=== PATIENT | male | born 1970 | race Caucasian/White ===

== ENCOUNTER 2019-12-17 12:19 | Emergency (ER) | payer OTHER, SELFPAY ==
[2019-12-17 12:21] VITALS: BP 149/111; PULSE 91; RESP 19; TEMP 36.8; O2SAT 96; BMI 39.5
[2019-12-17 13:06] LABS: Basophils # 0.1 10^3/uL (0.0-0.1); Basophils % 0.5 %; Eosinophils # 0.3 10^3/uL (0.0-0.8); Eosinophils % 2.9 %; Hematocrit 42.7 % (42.0-52.0); Hemoglobin 13.8 g/dL (11.7-16.6); Lymphocytes # 1.6 10^3/uL (0.8-4.8); Lymphocytes % 15.9 %; Mean Corpuscular HGB Conc 32.3 g/dL (30.0-36.0); Mean Corpuscular Hemoglobin 29.3 pg (28.0-34.0); Mean Corpuscular Volume 90.7 fL (80-94); Mean Platelet Volume 9.6 fL (7.4-10.4); Monocytes # 0.7 10^3/uL (0.2-0.9); Monocytes % 7.3 %; Neutrophils # 7.2 10^3/uL (1.8-7.7); Neutrophils % 73.1 %; Nucleated Red Blood Cells % 0 %; Platelet Count 225 10^3/cmm (130-400); Red Blood Count 4.71 10^6/uL (4.1-5.3); Red Cell Distribution Width 12.3 % (12.1-15.1); White Blood Count 9.8 10^3/uL (4.0-10.0)
[2019-12-17 13:26] LABS: Alanine Aminotransferase 20 U/L (0-41); Albumin Level 4.3 g/dL (3.5-5.2); Alkaline Phosphatase 101 IU/L (40-130); Aspartate Amino Transferase 20 U/L (0-40); Blood Urea Nitrogen 11 mg/dL (6-20); Calcium 10.1 mg/Dl (8.6-10.0); Carbon Dioxide 22 mmol/L (22-29); Chloride 102 mmol/L (98-107); Globulin 3.9 g/dL (1.3-4.6); Glomerular Filtration Rate 79.4 mL/min (90-130); Glucose 108 mg/dL (74-109); Lipase 22 U/L (13-60); Sodium 139 mmol/L (136-145); Total Bilirubin 0.3 mg/dL (0.15-1.2); Total Protein 8.2 g/dL (6.6-8.7)
--- NOTE | 2019-12-17 13:49 | ED_ITS ---
Entered by Genna Bar, acting as scribe for Mireille Rae MD, [facility] [place] Dec 17, 2019 12:19 HPI - Abdominal Pain General: Chief Complaint: Abdominal Pain Stated Complaint: watery stool Time Seen by Provider: 12/17/19 13:42 Source: patient Mode of arrival: ambulatory Limitations: no limitations History of Present Illness: HPI narrative: 49 yo Male presents to ED with complaint of abdominal pain and diarrhea. Pt states that for a little over a week he has had very watery stools. Pt states that over the past 4-5 days he is having cramping that has been increasing. Pt states that the pain is in his upper abdomen and into the right side of his abdomen. Pt states that if he eats, the pain gets worse. Pt denies any nausea and vomiting. Pt states that he has been a little light headed. MD elicited complaint: abdominal pain Pertinent past history: none Onset (ago): week(s) (1) Pain Consistency: constant Location: RUQ Pain scale (0-10): 6 Quality: cramping Migration to: no migration Associated Symptoms: Reports diarrhea; Denies chills, dysuria, fever(s), nausea and vomiting Review of Systems General: Reports: 10 or more systems reviewed and unremarkable except in HPI and below Const: Denies: fever or chills Eyes: Denies: change in vision, blurry vision or blind spots ENMT: Denies: throat pain, enlarged tonsils, painful swallowing or hoarseness Card: Denies: chest pain, palpitations, irregular heart rhythm or swelling of feet/ankles Resp: Denies: shortness of breath, productive cough or non-productive cough GI: Reports: abdominal pain and diarrhea; Denies: nausea or vomiting : Denies: flank pain, difficulty urinating or painful urination Musc: Denies: neck pain, back pain, extremity pain or extremity swelling Skin/Breast: Denies: rash, itching or redness Neuro: Denies: headache, numbness in extremities or weakness in extremities Endo: Denies: excessive urination, excessive thirst or tired all the time PFSH ED PFSH: Statuses (acute, chronic, etc) shown below reflect problem list status as previously entered and may not be historically accurate Social History Smoking and tobacco status: never smoked Physical Exam Const: COMMON NORMALS: no apparent distress, average body habitus, oriented x3, no limitations, healthy appearing, alert and well nourished HENMT: COMMON NORMALS: normocephalic, head/scalp atraumatic, hearing grossly normal bilaterally, external ears normal, EAC's normal, TM's normal bilaterally, external nose normal, nasal mucous membranes and turbinates normal, moist oral mucous membranes, oropharynx normal, dentition normal and gingiva normal HEAD & SCALP: normocephalic and atraumatic NOSE: external nose normal and nasal mucous membranes and turbinates normal EXTERNAL EAR: Yes external ears normal EXTERNAL AUDITORY CANAL: EAC's normal TYMPANIC MEMBRANE: TM's normal bilaterally Eye: COMMON NORMALS: PERRL, EOMs intact bilaterally, conjunctivae normal, no scleral icterus, no papilledema, normal visual underwood by confrontation and fundi normal bilaterally CONJUNCTIVA: Yes conjunctivae normal PUPIL: Yes PERRL DIRECT OPHTHALMOSCOPY: Yes no papilledema and Yes fundi normal bilaterally Neck/C-Spine: COMMON NORMALS: full ROM, supple, no meningeal signs, no JVD and no carotid bruits Chest: COMMONS NORMALS: inspection of chest normal and palpation of chest normal Resp: COMMON NORMALS: normal respiratory effort, no retractions, no use of accessory muscles, clear to auscultation bilaterally and percussion normal AUSCULTATION: clear to auscultation bilaterally PERCUSSION: percussion normal Cardio: COMMON NORMALS: no JVD, regular rate, regular rhythm, S1 normal heart sound, S2 normal heart sound, no gallops, no clicks, no murmurs, no rub and peripheral pulses 2+ throughout RATE: regular rate RHYTHM: regular rhythm HEART SOUNDS: S1 normal and S2 normal PERIPHERAL PULSES: pulses 2+ throughout GI: COMMON NORMALS: normal to inspection, nondistended, normoactive bowel sounds, soft to palpation, no hepatosplenomegaly, no masses and no bruits PALPATION: Yes soft, Yes tender Details: RLQ and RUQ, No guarding, No rigid and Yes no hepatosplenomegaly : COMMON NORMALS: Yes no CVA tenderness BLADDER/KIDNEY EXAM: Yes no CVA tenderness Back/Pelvis: COMMON NORMALS: no CVA tenderness Extremity: COMMON NORMALS: normal to inspection, full ROM, normal capillary refill, no joint enlargement, no clubbing, cyanosis or edema, no calf tenderness and no pedal edema Neuro: COMMON NORMALS: oriented x3 SENSORIUM/ORIENTATION: Yes alert MENINGEAL SIGNS: Yes no meningeal signs Skin: COMMON NORMALS: no rashes or lesions noted, no wounds, skin turgor normal, no jaundice, no petechiae and no mottling GENERAL SKIN EXAM: no rashes or lesions noted and turgor normal Course ED course: Discussed his lab and imaging findings with him. Labs normal, lipase normal, liver enzymes normal, white cell count normal. CT scan unremarkable other than features of enteritis. I will treat him as a case of viral enteritis and will manage him conservatively. He is advised to drink lots of fluids, get some [id number] antidiarrheal and to follow-up with his primary care provider. He voiced understanding and he is in agreement with the plan. Vital Signs: Vital signs: Vital Signs Temperature 98.2 F 12/17/19 12:21 Pulse Rate 91 12/17/19 12:21 Respiratory Rate 18 12/17/19 14:46 Blood Pressure 149/111 12/17/19 12:21 Pulse Oximetry 98 12/17/19 14:46 MDM - Abdominal Pain MDM Narrative: Medical decision making narrative: Patient with clinical features of viral enteritis. Labs unremarkable with normal white cell count, normal lipase, normal liver enzymes. CT scan does not show any acute findings other than enteritis and lymph node enlargement. He is discharged home on conservative measures. Lab Data: Labs: Lab Results 12/17/19 12/17/19 12/17/19 Range/Units 12:58 12:58 14:41 WBC 9.8 (4.0-10.0) 10^3/ uL RBC 4.71 (4.1-5.3) 10^6/u L Hgb 13.8 (11.7-16.6) g/dL Hct 42.7 (42.0-52.0) % MCV 90.7 (80-94) fL MCH 29.3 (28.0-34.0) pg MCHC 32.3 (30.0-36.0) g/dL RDW 12.3 (12.1-15.1) % Plt Count 225 (130-400) 10^3/c mm MPV 9.6 (7.4-10.4) fL Neut % (Auto) 73.1 % Lymph % (Auto) 15.9 % [place] % (Auto) 7.3 % Eos % (Auto) 2.9 % Baso % (Auto) 0.5 % Neut # (Auto) 7.2 (1.8-7.7) 10^3/u L Lymph # (Auto) 1.6 (0.8-4.8) 10^3/u L [place] # (Auto) 0.7 (0.2-0.9) 10^3/u L Eos # (Auto) 0.3 (0.0-0.8) 10^3/u L Baso # (Auto) 0.1 (0.0-0.1) 10^3/u L Nucleated RBC % (a uto) 0 % Nucleated RBCs # 0.0 /100WBC Sodium 139 (136-145) mmol/L Potassium 4.0 (3.5-5.1) mmol/L Chloride 102 (98-107) mmol/L Carbon Dioxide 22 (22-29) mmol/L Anion Gap 19.0 (5-19) BUN 11 (6-20) mg/dL Creatinine 1.0 (0.7-1.2) mg/dL GFR Calculation 79.4 L (90-130) mL/min Glucose 108 (74-109) mg/dL Calcium 10.1 H (8.6-10.0) mg/Dl Total Bilirubin 0.3 (0.15-1.2) mg/dL AST 20 (0-40) U/L ALT 20 (0-41) U/L Alkaline Phosphata se 101 (40-130) IU/L Total Protein 8.2 (6.6-8.7) g/dL Albumin 4.3 (3.5-5.2) g/dL Globulin 3.9 (1.3-4.6) g/dL Lipase 22 (13-60) U/L Urine Color Yellow (Yellow) Urine Appearance Clear (CLEAR) Urine pH 5 (5-7) Ur Specific Gravit y 1.015 (1.005-1.030) Urine Protein Neg (Negative) Urine Glucose (UA) Norm (Normal) Urine Ketones Negative (Negative) Urine Occult Blood Neg (Negative) Urine Nitrate Negative (Negative) Urine Bilirubin Neg (NEGATIVE) Urine Urobilinogen Norm (Negative) mg/dL Ur Leukocyte Soumya ase Negative (Negative) Imaging Data ^: CT Abd/Pel: Radiologist's impression: [facility] [address] [place] [address] CT Scan Report Signed Patient: Kamala Carroll #: [id number] : 1970Acct#:[id number] Age/Sex: 49 / MADM Date: 12/17/19 Loc: ERRoom/Bed: Attending Dr: Ordering Provider/Ordering MD: Mireille Rae MD, [facility] [place] Date of Service: 12/17/19 Procedure(s): CT abdomen pelvis w con* [id number] Accession Number(s): [id number] Report Number: [id number] WS: [id number] CT ABDOMEN AND PELVIS WITH CONTRAST HISTORY: abdominal pain, diarrhea for 3 days. TECHNIQUE: Imaging performed of the abdomen and pelvis with IV contrast. Single phase imaging of the abdomen. Coronal and sagittal reformats are submitted. All CT scans at [facility] use at least one of these dose optimization techniques: automated exposure control; mA and/or kV adjustment per patient size (includes targeted exams where dose is matched to clinical indication); or iterative reconstruction. IV CONTRAST: Omnipaque 300; 95 mL IV. Oral contrast: No DLP: 2527.13 mGy.cm COMPARISON: Chest CTA 05/21/2018 Lower thorax: Stable 3 mm nodule in the RIGHT lung base. Heart is normal size. No hiatal hernia. Liver/biliary system: Normal size with no intrahepatic dilatation. Gallbladder: Normal. No gallstones or wall thickening. No pericholecystic fluid. Pancreas: Normal. Spleen: Normal. Adrenal glands: Normal. Right kidney: Cortical hypodensity upper pole. No obstruction or solid mass. Left kidney: Normal. Aorta: Normal. Lymphadenopathy: Small rounded lymph nodes with mild enhancement in the RIGHT lower quadrant. The largest measures 1.0 cm. There is a adjacent stranding and induration within the soft tissues involving the distal small bowel and the cecum. Free fluid: None. GI tract: Mild inflammation and stranding involving the cecum and distal small bowel. The adjacent appendix is normal. No GI tract obstruction. No significant diverticular disease. Abdominal wall: Unremarkable abdominal wall. No hernia. Pelvis: Normally distended urinary bladder. No free fluid in the pelvis. Inguinal canals are patent bilaterally containing fat. Bones: T10, T11 and T12 mild anterior wedging and degenerative disc disease. No acute fractures. CT/CT abdomen pelvis w con* [id number] IMPRESSION: 1. RIGHT lower quadrant small but numerous lymph nodes and adjacent cecal and distal small bowel wall inflammation. Findings are most consistent with a mild inflammatory process such as colitis/enteritis. Mesenteric adenitis within the differential. 2. Normal appendix. 3. No free fluid or abscess. Dictated By:Noni Lovell DO Signed By:Noni Lovell DOSigned Date/Time:12/17/19 1450 DD/ 1442 Discharge Plan Discharge Patient Disposition: Home, Self-Care Clinical Impression: Enteritis Condition: Stable Prescriptions: New dicyclomine 10 mg capsule 10 mg PO TID Qty: 30 RF: 0 Discharge Orders: Discharge Order (Routine); Ordered 12/17/19 Ordered By: Mireille Rae Activity Restrictions/Additional Instructions: Return for any new or worsening symptoms. Drink lots of fluids to keep well-hydrated. Take the medication as prescribed as needed for pain and diarrhea. Get some [id number] antidiarrheal medication and use it as needed for diarrhea. Follow-up with your primary care provider within 3 days. Coding Level of Care Code ED Pneumatic Tester Mechanic for Chg Fwd Exam Problem Focused The documentation recorded by the Dipika vogel Carmen, accurately reflects the service I personally performed and the decisions made by Kyra hines Adegoke I, MD, [facility] Dec 17, 2019 12:19
--- NOTE | 2019-12-17 14:08 | CT_ITS ---
WS: [id number] CT ABDOMEN AND PELVIS WITH CONTRAST HISTORY: abdominal pain, diarrhea for 3 days. TECHNIQUE: Imaging performed of the abdomen and pelvis with IV contrast. Single phase imaging of the abdomen. Coronal and sagittal reformats are submitted. All CT scans at [facility] use at least one of these dose optimization techniques: automated exposure control; mA and/or kV adjustment per patient size (includes targeted exams where dose is matched to clinical indication); or iterativ e reconstruction. IV CONTRAST: Omnipaque 300; 95 mL IV. Oral contrast: No DLP: 2527.13 mGy.cm COMPARISON: Chest CTA 05/21/2018 Lower thorax: Stable 3 mm nodule in the RIGHT lung base. Heart is normal size. No hiatal hernia. Liver/biliary system: Normal size with no intrahepatic dilatation. Gallbladder: Normal. No gallstones or wall thickening. No pericholecystic fluid. Pancreas: Normal. Spleen: Normal. Adrenal glands: Normal. Right kidney: Cortical hypodensity upper pole. No obstruction or solid mass. Left kidney: Normal. Aorta: Normal. Lymphadenopathy: Small rounded lymph nodes with mild enhancement in the RIGHT lower quadrant. The lar gest measures 1.0 cm. There is a adjacent stranding and induration within the soft tissues involving the distal small bowel and the cecum. Free fluid: None. GI tract: Mild inflammation and stranding involving the cecum and distal small bowel. The adjacent ap pendix is normal. No GI tract obstruction. No significant diverticular disease. Abdominal wall: Unremarkable abdominal wall. No hernia. Pelvis: Normally distended urinary bladder. No free fluid in the pelvis. Inguinal canals are patent b ilaterally containing fat. Bones: T10, T11 and T12 mild anterior wedging and degenerative disc disease. No acute fractures. CT/CT abdomen pelvis w con* [id number] IMPRESSION: 1. RIGHT lower quadrant small but numerous lymph nodes and adjacent cecal and distal small bowel wall inflammation. Findings are most consistent with a mild inflammatory process such as colitis/enteritis. Mesenteric adenitis within the differential. 2. Normal appendix. 3. No free fluid or abscess.
[2019-12-17] MEDS: iohexol 300 mg/mL 100 mL Btl IV (14:27)
[2019-12-17 14:46] VITALS: RESP 18; O2SAT 98
[2019-12-17] MEDS: morphine 4 mg/mL SDV 1 mL 6 MG IVP (14:46)
[2019-12-17 14:54] LABS: Add Urine Microscopic? NO
[2019-12-17 15:05] LABS: Bilirubin Urine Neg (NEGATIVE); Blood Urine Neg (Negative); Glucose Urine UA Norm (Normal); Ketones Urine Negative (Negative); Leukocyte Esterase Urine Negative (Negative); Nitrate Urine Negative (Negative); Protein Urine Neg (Negative); Specific Gravity, Urine 1.015 (1.005-1.030); Urine Appearance Clear (CLEAR); Urine Color Yellow (Yellow); Urobilinogen Urine Norm (Negative); pH Urine 5 (5-7)
[2019-12-17 15:54] VITALS: BP 135/92; PULSE 72; RESP 18; O2SAT 96
== END 2019-12-17 15:55 | disposition home or self-care (01) ==
PROVIDERS: Physician Assistant; Emergency Provider Family Medicine
DX: K52.9 Noninfective gastroenteritis and colitis, unspecified (principal)
CPT/HCPCS: 36415; 74177; 80053; 81003; 83690; 85025; 96374; 99282; J2270; Q9967

== ENCOUNTER 2020-12-01 12:53 | Emergency (ER) | payer OTHER, SELFPAY ==
[2020-12-01] VITALS (7 sets, daily range): BP systolic 154–194; BP diastolic 98–116; PULSE 61–100; RESP 15–17; TEMP 36.6; O2SAT 97–100; BMI 39.5
--- NOTE | 2020-12-01 13:24 | CT_ITS ---
WS: [id number] CT HEAD NONCONTRAST HISTORY: elevated BP, dizziness TECHNIQUE: Contiguous axial imaging performed through the brain in 2.5 mm imaging. Bone and soft tiss ue windows. Sagittal and coronal reformats reviewed. All CT scans at [facility] use at ast one of these dose optimization techniques: automated exposure control; mA and/or kV adjustment pe r patient size (includes targeted exams where dose is matched to clinical indication); or iterative r econstruction. DLP: 898.2 mGy.cm COMPARISON: None available. No acute intracranial hemorrhage, midline shift or mass effect. No atrophy or prior infarcts or herniation. Ventricles: Normal size with no hydrocephalus. Paranasal sinuses: As visualized are clear. Mastoid air cells: Well pneumatized. Calvarium and scalp: Skull is intact with no soft tissue edema or swelling. CT/CT head wo con* [id number] IMPRESSION: Negative head CT.
--- NOTE | 2020-12-01 13:24 | ECG_ITS ---
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
--- NOTE | 2020-12-01 13:25 | W.ED.GENADLT ---
HPI - General Adult General: Chief complaint: General Medical Stated complaint: DIZZY, HYPERTENSION Time Seen by Provider: 12/01/20 12:55 History of Present Illness: HPI narrative: 50-year-old male presents emergency room complaining of lightheadedness dizziness blood pressure has been elevating the last several hours. He has no recent changes in antihypertensives but he had run out of his sertraline for a week and then restarted at 100 mg a day. He denies chest. He has had some headache little bit of visual disturbance no difficulty speaking or swallowing no difficulty with gait or using his hands. Patient reports earlier had very mild chest pains no shortness of breath chest pain is resolved he still has a little bit of shortness of breath. Onset (ago): hour(s) Location: head Radiation: non-radiation Severity: mild Quality: aching Pain Consistency: now resolved Relieving factors: none Exacerbating factors: none Associated symptoms: Reports chest pain, dyspnea and short of breath; Deny confusion, cough, diaphoresis, decreased appetite, fevers/chills, headache(s), malaise, nausea, rash, palpitations, seizures, syncope, vomiting or weakness Treatments prior to arrival: none Review of Systems Const: Denies: diaphoresis ENMT: Denies: throat pain, ear or mastoid pain, nasal discharge or nasal congestion Card: Reports: chest pain; Denies: palpitations or syncope Resp: Reports: dyspnea GI: Denies: nausea or vomiting : Denies: flank pain, dysuria, urinary frequency or urinary urgency Skin/Breast: Denies: rash or pruritus Neuro: Denies: headache(s) or confusion PFS ED PFSH: Social History Smoking and tobacco status: never smoked Physical Exam Const: COMMON NORMALS: no acute distress GENERAL APPEARANCE: cooperative and comfortable ORIENTATION/CONSCIOUSNESS: Yes awake, Yes oriented to person, Yes oriented to place and Yes oriented to time HENMT: COMMON NORMALS: normocephalic, atraumatic and hearing grossly normal bilaterally HEAD & SCALP: normocephalic and atraumatic Eye: COMMON NORMALS: Equal, round and reactive pupils present, EOMs intact bilaterally, conjunctivae normal and no scleral icterus CONJUNCTIVA: Yes conjunctivae normal PUPIL: Yes Equal, round and reactive pupils present Neck/C-Spine: COMMON NORMALS: full ROM, no lymphadenopathy, supple and no JVD Lymph: LYMPHATIC: no lymphadenopathy noted and no lymphedema noted Resp: COMMON NORMALS: normal respiratory effort, No retractions, No use of accessory muscles and clear to auscultation bilaterally AUSCULTATION: clear to auscultation bilaterally Cardio: COMMON NORMALS: no JVD, regular rate, regular rhythm and No murmurs present (Cardio) RATE: regular rate RHYTHM: regular rhythm GI: COMMON NORMALS: Soft to palpation and No hepatosplenomegaly present AUSCULTATION: Yes normoactive bowel sounds PALPATION: Yes Soft to palpation, No Tenderness to palpation present (GI), No Guarding due to palpation present (GI) and Yes No hepatosplenomegaly present Extremity: COMMON NORMALS: normal to inspection, capillary refill normal, no clubbing, cyanosis or edema, no calf tenderness and no pedal edema Neuro: SENSORIUM/ORIENTATION: Yes oriented to person, Yes oriented to place and Yes oriented to time Skin: COMMON NORMALS: no rashes or lesions noted GENERAL SKIN EXAM: no rashes or lesions noted Course Vital Signs: Vital signs: Vital Signs Temperature 97.8 F 12/01/20 12:54 Pulse Rate 100 12/01/20 16:01 Respiratory Rate 16 12/01/20 16:01 Blood Pressure 167/116 12/01/20 16:01 Pulse Oximetry 97 12/01/20 16:01 MDM - General Adult MDM Narrative: Medical decision making narrative: Troponin negative blood pressure is improved we will discharge him home on amlodipine 5 mg daily have him start taking aspirin 81 mg daily and will have him follow-up with an outpatient stress test and follow-up with his primary care within the week for follow-up on blood pressure. Patient's discharge orders are written I was called away to attend to another patient by the time I had completed that and gotten back to this patient's room he had already been discharged by the nurse I called him on his cell phone and reviewed what we had found in his discharge instructions answered all questions he had encouraged him to follow-up with his doc sometime in the week to recheck his blood pressure and advised him that case management would call to set up the stress test also that he should take the amlodipine in addition to his other blood pressure medications and take an aspirin daily Lab Data: Labs: Lab Results 12/01/20 12/01/20 12/01/20 Range/Units 13:10 13:10 13:10 WBC 6.8 (4.0-10.0) 10^3/ uL RBC 4.71 (4.1-5.3) 10^6/u L Hgb 14.1 (11.7-16.6) g/dL Hct 44.8 (42.0-52.0) % MCV 95.1 H (80-94) fL MCH 29.9 (28.0-34.0) pg MCHC 31.5 (30.0-36.0) g/dL RDW 12.5 (12.1-15.1) % Plt Count 169 (130-400) 10^3/c mm MPV 10.7 H (7.4-10.4) fL Neut % (Auto) 53.1 % Lymph % (Auto) 34.5 % [place] % (Auto) 8.7 % Eos % (Auto) 2.9 % Baso % (Auto) 0.7 % Neut # (Auto) 3.60 (1.8-7.7) 10^3/u L Lymph # (Auto) 2.3 (0.8-4.8) 10^3/u L [place] # (Auto) 0.6 (0.2-0.9) 10^3/u L Eos # (Auto) 0.2 (0.0-0.8) 10^3/u L Baso # (Auto) 0.1 (0.0-0.1) 10^3/u L Nucleated RBC % (a uto) 0 % Nucleated RBCs # 0.0 /100WBC Sodium 138 (136-145) mmol/L Potassium 4.2 (3.5-5.1) mmol/L Chloride 101 (98-107) mmol/L Carbon Dioxide 27 (22-29) mmol/L Anion Gap 14.2 (5-19) BUN 11 (6-20) mg/dL Creatinine 1.0 (0.7-1.2) mg/dL GFR Calculation 79.1 L (90-130) mL/min Glucose 96 (65-115) mg/dL Calculated Osmolal ity 285 (285-295) mOsm/k g Calcium 9.3 (8.5-10.5) mg/dL Total Bilirubin 0.3 (0.15-1.2) mg/dL AST 14 (0-40) U/L ALT 15 (0-41) U/L Alkaline Phosphata se 86 (40-130) IU/L Troponin T Baselin e 7 (0-15) ng/L Troponin T 120 [place] (0-15) ng/L Delta Troponin T (0-10) ABS# Total Protein 7.1 (6.6-8.7) g/dL Albumin 4.7 (3.5-5.2) g/dL Globulin 2.4 (1.3-4.6) g/dL 12/01/20 Range/Units 15:02 WBC (4.0-10.0) 10^3/ uL RBC (4.1-5.3) 10^6/u L Hgb (11.7-16.6) g/dL Hct (42.0-52.0) % MCV (80-94) fL MCH (28.0-34.0) pg MCHC (30.0-36.0) g/dL RDW (12.1-15.1) % Plt Count (130-400) 10^3/c mm MPV (7.4-10.4) fL Neut % (Auto) % Lymph % (Auto) % [place] % (Auto) % Eos % (Auto) % Baso % (Auto) % Neut # (Auto) (1.8-7.7) 10^3/u L Lymph # (Auto) (0.8-4.8) 10^3/u L [place] # (Auto) (0.2-0.9) 10^3/u L Eos # (Auto) (0.0-0.8) 10^3/u L Baso # (Auto) (0.0-0.1) 10^3/u L Nucleated RBC % (a uto) % Nucleated RBCs # /100WBC Sodium (136-145) mmol/L Potassium (3.5-5.1) mmol/L Chloride (98-107) mmol/L Carbon Dioxide (22-29) mmol/L Anion Gap (5-19) BUN (6-20) mg/dL Creatinine (0.7-1.2) mg/dL GFR Calculation (90-130) mL/min Glucose (65-115) mg/dL Calculated Osmolal ity (285-295) mOsm/k g Calcium (8.5-10.5) mg/dL Total Bilirubin (0.15-1.2) mg/dL AST (0-40) U/L ALT (0-41) U/L Alkaline Phosphata se (40-130) IU/L Troponin T Baselin e (0-15) ng/L Troponin T 120 Min [place] 7.37 (0-15) ng/L Delta Troponin T 0.37 (0-10) ABS# Total Protein (6.6-8.7) g/dL Albumin (3.5-5.2) g/dL Globulin (1.3-4.6) g/dL Discharge Plan Discharge Patient Disposition: Home Clinical Impression: Benign essential HTN, Atypical chest pain Condition: Stable Prescriptions: New amlodipine 5 mg tablet 5 mg PO DAILY Qty: 20 RF: 0 aspirin 81 mg tablet,delayed release (DR/EC) 81 mg PO DAILY Qty: 30 RF: 0 No Action dicyclomine 10 mg capsule 10 mg PO TID Qty: 30 RF: 0 lisinopril 20 mg Tablet 10 mg PO DAILY@0530 RF: 0 sertraline 100 mg Tablet 200 mg PO BEDTIME@1900 RF: 0 mirtazapine 30 mg Tablet 30 mg PO DAILY@0530 RF: 0 rivaroxaban 20 mg Tablet 20 mg PO DAILY@0530 RF: 0 Vitamin C 1 tab PO DAILY@0530 RF: 0 Vitamin D3 1 tab PO DAILY@0530 RF: 0 atorvastatin See Rx Instructions .ROUTE .COMPLEX RF: 0 metformin 100 mg 50 mg PO BID@0530,1900 RF: 0 vitamin E 1 tab PO DAILY@0530 RF: 0 Discharge Orders: Discharge ED (Routine); Ordered 12/01/20 Ordered By: Darrell Good Discharge Diet: Usual diet Discharge Activity: Increase activity as tolerated Activity Restrictions/Additional Instructions: Case management will call with a referral for a cardiac stress test. Follow-up with your doctor for check on blood pressure within the week. Return if you have further problems. Coding Level of Care Code ED Civil Preparedness Coordinator for Leslie Fwd Exam Comprehensive NIH stroke score NIHSS Level Of Consciousness - 1a: 0 Level Of Consciousness Questions - 1b: Both Correct Level Of Consciousness Commands - 1c: Both Correct Best Gaze - 2: Normal Visual [place] - 3: No Visual Loss Facial Palsy - 4: Normal Motor Arm Right - 5: No Drift Motor Arm Left - 5: No Drift Motor Leg Right - 6: No Drift Motor Leg Left - 6: No Drift Limb Ataxia - 7: Absent Sensory - 8: Normal Best Language - 9: No Aphasia Dysarthia - 10: Normal Extinction And Inattention - 11: 0 Score Total Score: 0
[2020-12-01 13:45] LABS: Basophils # 0.1 10^3/uL (0.0-0.1); Basophils % 0.7 %; Eosinophils # 0.2 10^3/uL (0.0-0.8); Eosinophils % 2.9 %; Hematocrit 44.8 % (42.0-52.0); Hemoglobin 14.1 g/dL (11.7-16.6); Lymphocytes # 2.3 10^3/uL (0.8-4.8); Lymphocytes % 34.5 %; Mean Corpuscular HGB Conc 31.5 g/dL (30.0-36.0); Mean Corpuscular Hemoglobin 29.9 pg (28.0-34.0); Mean Corpuscular Volume 95.1 fL (80-94); Mean Platelet Volume 10.7 fL (7.4-10.4); Monocytes # 0.6 10^3/uL (0.2-0.9); Monocytes % 8.7 %; Neutrophils % 53.1 %; Nucleated Red Blood Cells % 0 %; Platelet Count 169 10^3/cmm (130-400); Red Blood Count 4.71 10^6/uL (4.1-5.3); Red Cell Distribution Width 12.5 % (12.1-15.1); White Blood Count 6.8 10^3/uL (4.0-10.0)
[2020-12-01 14:22] LABS: Alanine Aminotransferase 15 U/L (0-41); Albumin Level 4.7 g/dL (3.5-5.2); Alkaline Phosphatase 86 IU/L (40-130); Anion Gap 14.2 (5-19); Aspartate Amino Transferase 14 U/L (0-40); Blood Urea Nitrogen 11 mg/dL (6-20); Calcium 9.3 mg/dL (8.5-10.5); Carbon Dioxide 27 mmol/L (22-29); Chloride 101 mmol/L (98-107); Globulin 2.4 g/dL (1.3-4.6); Glomerular Filtration Rate 79.1 mL/min (90-130); Glucose 96 mg/dL (65-115); Osmolality Calculated 285 mOsm/kg (285-295); Potassium 4.2 mmol/L (3.5-5.1); Sodium 138 mmol/L (136-145); Total Bilirubin 0.3 mg/dL (0.15-1.2); Total Protein 7.1 g/dL (6.6-8.7)
[2020-12-01 14:24] LABS: Troponin(5th) Baseline 7 ng/L (0-15)
[2020-12-01] MEDS: amlodipine 5 mg Tablet PO (14:56)
--- NOTE | 2020-12-01 15:24 | ECG_ITS ---
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
[2020-12-01 15:42] LABS: Troponin 5 2HR 7.37 ng/L (0-15); Troponin 5 2HR Delta 0.37 ABS# (0-10)
== END 2020-12-01 16:02 | disposition home or self-care (01) ==
PROVIDERS: Emergency Provider Family Medicine
DX: I10 Essential (primary) hypertension (principal); R07.89 Other chest pain
CPT/HCPCS: 12345; 36415; 70450; 80053; 84484; 85025; 93005; 99283

== ENCOUNTER → 2021-01-26 11:40 | Outpatient (BNVA) | payer OTHER, SELFPAY | PROVIDERS: PCP Family Medicine; Visit Provider Specialist | DX: R20.0 Anesthesia of skin (principal); R20.2 Paresthesia of skin; G56.21 Lesion of ulnar nerve, right upper limb | CPT/HCPCS: 95908 ==

== ENCOUNTER 2021-02-25 07:16 | Outpatient (CLI) | payer OTHER, SELFPAY ==
[2021-02-25 07:48] VITALS: BMI 39.5
--- NOTE | 2021-02-25 07:50 | ECG_ITS ---
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 Interpretive Statements NAME OF STUDY: LEXISCAN SESTAMIBI STRESS TEST INDICATION: [Chest Pain] Procedure: At the baseline, the blood pressure was 130/78 mmHg, heart rate of 55 bpm. Electrocardiogram showed normal sinus rhythm, with normal ST-T waves. The Lexiscan was infused over a duration of 20 seconds. A total of 0.4 mg of Lexiscan was infused. The stress phase was continued for a total of 5 minutes. Heart rate at the end of stress phase was 77 bpm with a blood pressure of 146/67mmHg. The EKG revealed sinus rhythm with no significant ST-T wave changes. Sestamibi was injected 20 seconds after the Lexiscan infusion. Blood pressure at the end of recovery phase was 137/80mmHg with a heart rate of 74 bpm. Conclusion: 1. Normal EKG response to Lexiscan infusion. 2. No Lexiscan induced chest pain or cardiac arrhythmia. 3. Normal blood pressure and heart rate response. 4. Sestamibi/sestamibi perfusion scan pending; see separate report. Electronically Signed On 02-28-2021 17:30:07 CDT by Osman Wilson M.D. [id number]
--- NOTE | 2021-02-25 07:50 | NMCV_ITS ---
NM gerald perf SPECT r/s* [id number] Philip Carroll Age: 50 Gender: M : 1970 Exam Date: 02/25/2021 08:56 Ordering Phys: Osman Wilson M.D ([email or web address]) Technologist: DENIA Donahue Exam Location: [facility] Indications: Chest pain STRESS TEST [facility] IMAGE PROTOCOL Rest/Stress 1 Lexiscan Day Radiopharmaceutical Dose (mCi) Administration Site Administered by Rest: Tc-99m 10.7 IV DENIA Donahue Sestamibi Stress:Tc-99m 33.0 IV DENIA Donahue Sestamibi Rest: 25-Feb-2021 60 Discovery 630 Stress: 25-Feb-2021 45 Discovery 630 0.4mg Lexiscan. Images obtained in supine and prone position. SPECT RESULTS Technical Quality: Good Raw Data Analysis: Normal Image Corrections: No attenuation or motion correction applied Summed Stress Score: 3 Summed Rest Score: 1 Summed Difference Score: 2 PERFUSION FINDINGS There is a small in size, reversible perfusion defect in the apical, apical inferior and inferior wall. This likely represents ischemia FUNCTIONAL RESULTS (calculated via Gated SPECT) Stress Image LV EF (%): 52 Stress EDV (mL):125 TID: 1.07 Stress ESV (mL):60 FUNCTIONAL FINDINGS: LV systolic function is normal IMPRESSIONS 1. There is small in size, reversible perfusion defect in the apical,apical inferior and inferior wall. This represents ischemia 2. LV systolic function is normal Osman Wilson MD (Electronically Signed) Final Date: 27 February 2021 20:08 S
--- NOTE | 2021-02-25 09:39 | SUR.PREOP ---
Patient reports no chest pain or discomfort prior to the start of the procedure.
[2021-02-25] MEDS: regadenoson 0.4 Mg/5 ml Syringe IVP (09:41)
[2021-02-25 09:57] VITALS: BP 137/81; PULSE 73
== END 2021-02-25 07:17 | disposition home or self-care (01) ==
LOC: CDL 07:17
PROVIDERS: PCP Family Medicine; Visit Provider Internal Medicine
DX: R07.9 Chest pain, unspecified (principal)
CPT/HCPCS: 78452; 93017; A9500; J2785

== ENCOUNTER → 2021-03-08 09:31 | Outpatient (BNVA) | payer OTHER, SELFPAY | PROVIDERS: PCP Family Medicine; Visit Provider Internal Medicine | DX: R94.39 Abnormal result of other cardiovascular function study (principal); Z20.822 Contact with and (suspected) exposure to COVID-19 | CPT/HCPCS: 80048; 85025; 85610; 87635 ==

== ENCOUNTER → 2021-03-31 11:23 | Outpatient (BNVA) | payer OTHER, SELFPAY | PROVIDERS: PCP Family Medicine; Visit Provider Internal Medicine | DX: Z01.818 Encounter for other preprocedural examination (principal); Z20.822 Contact with and (suspected) exposure to COVID-19 | CPT/HCPCS: 80048; 85025; 85610; 87635 ==

== ENCOUNTER 2021-04-02 11:50 | Day surgery (SDC) | payer OTHER, SELFPAY ==
[2021-04-02] VITALS (16 sets, daily range): BP systolic 126–142; BP diastolic 68–100; PULSE 57–90; RESP 11–24; TEMP 36.5; O2SAT 94–97; BMI 45.0
--- NOTE | 2021-04-02 12:30 | XACV_ITS ---
Exam Room: [facility] Ht: 180 cm Wt: 147 kg BSA: 2.78 m2 Gender: Male : 1970 Any Known Allergies: No known allergies Exam Priority: Routine Procedure(s): Procedure Description: Diagnostic procedure Procedure Description: Left ventriculography Procedure Description: Coronary Angiography Procedure Description: Left heart cath Diagnostic Cath Status: Elective Diagnostic Findings * No disease noted in the Left Main, Left Anterior Descending, Right, or Circumflex coronary arteries. PDA has diffuse mild to moderate disease.. * Coronary angiography shows right dominance. PCI Status: Elective Conclusions 1. No disease noted in the Left Main, Left Anterior Descending, Right, or Circumflex coronary arteries. PDA has diffuse mild to moderate disease.. 2. Normal left ventricular systolic function. Ejection fraction of 55%. Recommendations * Aggressive risk factor control. * Outpatient cardiology follow up. Diagnostic RX Recommendation: medical therapy and/or counseling Anticoagulation: Heparin Ventriculography Ejection Fraction: 55.0 % Pressures Phase:Rest AO : 147 / 24 ( 54 ) @ 2:13:00 PM LV : 129 / 5 / 20 @ 2:12:00 PM 232 / 58 / 136 @ 2:13:00 PM Clinical Evaluation EBL: 5mL-10mL Procedural Details Procedure Consent Obtained. Pre-Procedure Time Out. Identified patient by full name and date of as verbalized by the patient/guarantor. Does the consent match the physician's order: Yes. Accurate & Complete Informed Consent: Yes. Inpatient/Outpatient History & Physical on Chart: Yes. If H&P is completed, is and addenduem needed: No; If yes, is the addendum complete: N/A. Visualize and Verify Site with Patient/Guarantor: N/A. Relevant Radiology Images available: Yes. Pre-op teaching completed and patient verbalized understanding. The risks, benefits, and alternatives of sedation and/or procedure were discussed by physician. The patient agrees to continue. Procedure started. Correct patient, site and procedure confirmed by cath team. Current diagnosis: Chest Pain. PERRLA. Strong, equal hand storm sash maker bilaterally. Lungs clear x 5 lobes. IV Site on Arrival: 20 gauge in the left anticubital. IV Fluids: 0.9% NaCl at KVO. 0 mL infused prior to geoscience laboratory technician. Pre Procedural Pulses: bilateral dorsalis pedis was 1+. Pre Procedural Pulses: bilateral posterior tibial was 1+. Pre Procedural Pulses: right radial was 3+. Pre Procedural Pulses: left radial was 1+. Oxygen started at 2liters/min via nasal canula. bilateral groins was prepped with chloroprep then draped in the usual sterile fashion. right radial was prepped with chloroprep then draped in the usual sterile fashion. Baseline sample Acquired. HR: 54 BPM. Physician notified. Physician arrived. Equipment: 6F - Radial. ACIST Manifold Kit Model BT 2000. Cardiac Cath Pack. Heparinized Saline (2 units/mL), 1000 mL bag. Physician scrubbed in. Immediate Pre-Procedure Time Out. Correct Patient: Yes; Correct Procedure: Yes; Correct Site: Yes; Correct Patient Position: Yes; Correct Supplies: Yes; Dried Flammable Prep: Yes; Blood Products Available: No;. Lidocaine 1% infiltrated to the right radial. Arterial access obtained. A 5 jordanian TIG catheter in over wire. Multiple views taken of left coronary artery. Catheter redirected to the RCA. Multiple views taken of right coronary artery. Catheter out. A 5 jordanian Angled Pig catheter in over wire. EDP Sample taken: LV 129/5,20; HR: 66 BPM; SpO2: 98%. LV gram performed in LEDESMA @ 10 mL/second for a total of 20 mL. EDP Sample taken: LV 232/58,136; HR: 64 BPM; SpO2: 98%. Pullback taken: LV Off; AO Off; Mean: , Peak to Peak: , SEP: ; HR: 64 BPM; SpO2: 98%. Catheter out. TR band placed. Hemostasis obtained. A TR Band was successful obtaining hemostatsis at the Right Radial artery insertion site. Post Procedure: Pulses reassessed and unchanged. PERRLA. Strong, equal hand storm sash maker bilaterally. No VTE prophylaxis required. Contrast type used: Omnipaque 300 mgI/mL, 500 mL bottle. [facility] Clinical Fraility Score: 3: Managing Well. Quantometer Operator Indications: Suspected CAD. Chest Pain Symptom Assessment: Typical Angina Symptoms. Cardiovascular Instability: No. Post-op diagnosis: Normal Coronaries. Complications: None. Estimated blood loss: 5mL-10mL. Medication's Wasted: Lidocaine 1% = 18 mL. Medication's Wasted: Heparin = 1000 units mL. Medication's Wasted: Nitro = 49.8 mg. Medication's Wasted: Other = Fentanyl 50 mcg. Total IV fluids: 50 mL. Procedure completed. Patient transferred by bed to 1st floor. Vital chart was stopped. Access Site Site: Right Radial artery Sheath Size: 6 Fr Hemostasis Method: TR Band Hemostasis Success: Successful Procedure Medications Start: 2:58 PM Stop: 2:58 PM Medication: Versed Amount: 1 mg Route: I.V. Start: 2:58 PM Stop: 2:58 PM Medication: Fentanyl Amount: 50 mcg Route: I.V. Start: 3:00 PM Stop: 3:00 PM Medication: Versed Amount: 1 mg Route: I.V. Start: 3:05 PM Stop: 3:05 PM Medication: Versed Amount: 1 mg Route: I.V. Start: 3:05 PM Stop: 3:05 PM Medication: Heparin Amount: 5000 units Route: I.V. I, the attending physician, have reviewed and verified all procedure medications. Yes, all medications given per verbal order History/Risk Factors Hypertension: Yes Dyslipidemia: Yes Peripheral Arterial Disease (PAD): No Myocardial Infarction (HI): No Obesity: Yes Renal Disease: No Tobacco Use: Never Prior Interventions PCI: No CABG: No Valve Surgery: No Report Signatures Finalized by Osman Wilson MD on 04/11/2021 01:46 PM
[2021-04-02] MEDS: diphenhydrAMINE 50 mg Capsule PO (13:09)
--- NOTE | 2021-04-02 14:52 | W.PM.OPSFHP ---
Same Day Surgery H&P Indication for Procedure/HPI DATE OF PROCEDURE: April 02, 2021 CHIEF COMPLAINT/INDICATIONFOR SURGICAL PROCEDURE: Chest pain/ Abnormal stress test PREOP DIAGNOSIS: Chest pain/Abnormal stress test PLANNED PROCEDRUE: Operation Date: 04/02/21 13:30 Proposed Procedures p Cardiac Catheterization 41689 R94.39(Left) - Osman Wilson M.D Possible percutaneous coronary intervention 50-year-old man with past medical history of hypertension, diabetes, prior PE on Xarelto had presented to emergency room has been having symptoms of uncontrolled blood pressure. According to patient he has been noticing sharp substernal exertional chest discomfort and shortness of breath for last several months. He had nuclear stress test that was abnormal. ROS CONSTITUTIONAL: No fever chills weight loss or gain or night sweats. [] HEENT: Normocephalic, atraumatic.[] RESPIRATORY: No cough, sputum, hemoptysis or wheezing.[] CARDIOVASCULAR: Gets chest pain, no PND, orthopnea, lower extremity edema, presyncope or syncope. [] GI: no nausea vomiting diarrhea. 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 [] MUSCULOSKELETAL: No knee or joint pain or rashes. [] Medications/Allergies* Home Medications Medication Instructions Recorded Confirmed Type Vitamin C 1 tab PO DAILY@52912/01/20 04/01/21 History Vitamin D3 1 tab PO DAILY@52912/01/20 04/01/21 History atorvastatin 80 mg PO DAILY 12/01/20 04/01/21 History lisinopril 40 mg PO DAILY@52912/01/20 04/01/21 History mirtazapine 30 mg PO DAILY@52912/01/20 04/01/21 History rivaroxaban 20 mg PO DAILY@52912/01/20 04/02/21 History vitamin E 1 tab PO DAILY@52912/01/20 04/01/21 History testosterone 20.25 mg/1.25 gram 1 pump TOPICAL DAILY 12/31/20 04/01/21 History (1.62 %) transdermal gel pump metformin 500 mg PO BID@0530,1900 01/26/21 04/01/21 History sertraline 100 mg tablet 200 mg PO DAILY tab 01/26/21 04/01/21 History Allergies/Adverse Reactions Allergy/AdvReac Type Severity Reaction Status Date / Time No Known Allergies Allergy Verified 02/25/21 08:18 Current Medications: Generic Name Dose Route Start Last Admin Trade Name Alfredo PRN Reason Stop Dose Admin Sodium Chloride 1,000 mls @ 50 mls/hr 04/02/21 12:30 04/02/21 13:09 Sodium Chloride 0.9% IV 04/03/21 08:29 Not Given .Q20H ONE Pertinent History/Comorbid Conditions* Medical History (Updated 01/26/21 @ 19:17 by Rachel Duque MD) Diabetes 1.5, managed as type 2 Hyperlipidemia Hypertension Pulmonary embolism Surgical History (Updated 01/03/21 @ 15:28 by Osman Wilson M.D) H/O hernia repair Family History (Updated 12/31/20 @ 13:31 by Caro Mendiola LPN) Father Grandfather CAD (coronary artery disease) Grandfather Cancer Father Stroke Grandfather Social History Smoking and tobacco status: never smoked Alcohol intake: current Alcohol intake frequency: 0-2 Drinks per Day Alcohol type: hard liquor Desire information about alcohol rehabilitation?: No Counseling given: No Pertinent Exam Findings alert, oriented x 3, clear to auscultation bilaterally and regular rate & rhythm GENERAL: Patient is alert, awake and oriented x3. [] NECK: No jugular vein distension. [] HEENT: No cyanosis. No icterus. No pallor. [] HEART: Regular S1 and S2. No murmur, rub or gallop. [] LUNGS: Clear to auscultate bilaterally. [] ABDOMEN: Soft, nontender and nondistended. Positive bowel sounds. No guarding, rebound or tenderness. [] CENTRAL NERVOUS SYSTEM: Grossly nonfocal. [] EXTREMITIES: Lower extremities with no edema bilaterally. Pulses palpable in the lower extremities, both dorsalis pedis and posterior tibial. [] Conscious Sedation Assessment PATIENT ASSESSED PRIOR TO SEDATION, WITH NO CHANGE NOTED: Yes AIRWAY EVAL/ANESTHESIA PLAN: normal airway, see other exam findings, ASA III, Monitored Anesthesia, Local Anesthesia, Risks, benefits & alternatives of sedation and/or procedure discussed and Patient agrees to continue as planned Recommendations Surgery/Procedure today (Left heart cath/possible percutaneous coronary intervention) Coding Level of Care Code Acute Shipping Order Clerk for Leslie Carrillo
--- NOTE | 2021-04-02 16:18 | PC.NURSE ---
received from cardiac quality assurance qa lab analyst at 1530 into room 105.report received .pt is alert and awake and oriented x 4.denies pain.sr on monitor.right wrist with tr band on and inflated.right hand is warm to touch and with brisk capillary refill.palpable radial pulse noted distal to tr band.no hematoma noted.instructed in activity restrictions s/p radial artery procedure ...and instructed to notify staff for any bleeding,pain,numbness..or for any concerns at all. pt verb understanding of instructions
[2021-04-02 17:41] LABS: Glucose Point of Care 202 mg/dL (70-110)
--- NOTE | 2021-04-02 18:02 | PC.NURSE ---
at approx 17:30 pt reported that he was experiencing visual changes. right eye peripheral vision appeared fuzzy or cloudy ..there were colors changing like carnival lights .perrl.maew and equally well.no numbness,tingling reported (other than usual numbness around scar on right face.could identify appropriate finger count on peripheral vision check.dr stratton notified.he came and examined pt.consulted with dr fox on phone (opthamologist).performed right eye pressure/release type maneuvers.will have appt arranged with dr fox after discharge.instructed to notify staff for any worsening of sxs..or develops pain,dizziness,numbness,,or any concerns at all.pt verb understanding of instructions
--- NOTE | 2021-04-02 18:21 | PC.NURSE ---
pt states the right eye peripheral blurriness has completely resolved.instructed to notify staff if sxs reoccur
--- NOTE | 2021-04-02 19:00 | PC.NURSE ---
right wrist tr band was slowly deflated and removed at 1830.site without hematoma.right hand remains warm to touch and with brisk capillry refill.palpable pulse noted.site dressed with 2x2 guaze and secured with biocclusive drsg.instructed in activity restrictions s/p tr band removal.instructed to notify staff immediatly should bleeding occur.pt verb understanding of instructions.
--- NOTE | 2021-04-02 19:03 | PC.NURSE ---
discharge instructions given and explained.pt verb understanding of instructions.no further right eye blurriness reported.pt will have appt with dr fox for follow up next week.discharged via ambulation to exit. spouse to drive pt home.
--- NOTE | 2021-04-03 09:14 | PM.MISC ---
Miscellaneous Note Purpose of Documentation: Post procedure event Note: Documenting for 04/02/2021: Patient underwent coronary angiogram that was unremarkable. About 2 hours post procedure he complained about right eye peripheral visual distubance that he described as colorful fuzziness. Complete neurological exam was performed that did not show any sensory or motor deficits. 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 Ophthalmology was not color television console monitor, however I seeked advice from Dr Teresa over the phone who suggested ocular massage and pressure. This maneuver was performed with complete resolution of patient's symptoms and his vision was back to normal. Patient was discharged home in stable condition. He will follow up with ophthalmology as outpatient. I will also see him in office. Patient will continue his anticoagulation.
== END 2021-04-02 19:00 | disposition home or self-care (01) ==
LOC: CCL 11:51 → CSU 16:03
PROVIDERS: PCP Family Medicine; Visit Provider Internal Medicine
DX: I25.10 Atherosclerotic heart disease of native coronary artery without angina pectoris (principal); R07.9 Chest pain, unspecified; R94.39 Abnormal result of other cardiovascular function study; I10 Essential (primary) hypertension; Z79.01 Long term (current) use of anticoagulants; Z86.711 Personal history of pulmonary embolism; E13.9 Other specified diabetes mellitus without complications; Z79.84 Long term (current) use of oral hypoglycemic drugs; E78.5 Hyperlipidemia, unspecified
CPT/HCPCS: 36415; 36416; 82962; 93452; C1769; C1887; C1894; J1644; J2250; J3010; J3490; J7030; Q0163; Q9967

== ENCOUNTER → 2021-04-09 12:16 | Outpatient (BNVA) | payer OTHER, SELFPAY | PROVIDERS: PCP Family Medicine; Visit Provider Nurse Practitioner Family | DX: I10 Essential (primary) hypertension (principal) | CPT/HCPCS: 80048 ==

== ENCOUNTER 2021-05-11 15:40 | Inpatient (IN) | payer OTHER, SELFPAY ==
[2021-05-11] VITALS (10 sets, daily range): BP systolic 90–152; BP diastolic 60–82; PULSE 65–96; RESP 15–32; TEMP 36.5–36.6; O2SAT 93–98; BMI 41.8
[2021-05-11] MEDS: ondansetron 2 mg/ML SDV 2 mL 4 MG IVP (16:18)
[2021-05-11] MEDS: sodium chloride 0.9% 1,000 ML 999 ML IV ×2 (16:20→17:32)
--- NOTE | 2021-05-11 16:20 | ECG_ITS ---
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 Measurements Intervals [place] Rate: 77 P: 59 ID: [id number] QRS: 66 QRSD: 83 T: 66 QT: 347 QTc: 394 Interpretive Statements SINUS RHYTHM Compared to ECG 12/01/2020 15:24:46 No significant changes Electronically Signed On 05-12-2021 17:43:01 CDT by Ade Woo M.D. [id number]
--- NOTE | 2021-05-11 16:22 | W.ED.GENADLT ---
Documented by User: Darrell Good DO 05/13/21 07:08 HPI - General Adult General: Chief complaint: General Medical Stated complaint: OVER HEATED/ NAUSEA Time Seen by Provider: 05/11/21 16:14 History of Present Illness: HPI narrative: 50-year-old male presents to the emergency room with complaint of not feeling well.Patient worked outside yesterday got weak lightheaded dizzy near syncopal-like episode and had a repeat today. No loss of consciousness. 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 He denied a chest pain. On initial arrival he was hypotensive. Associated symptoms: Reports malaise; Deny chest pain, dyspnea, nausea, rash or vomiting Review of Systems Const: Reports: fatigue and malaise; Denies: fever(s), chills, body aches or change in appetite ENMT: Denies: throat pain, ear or mastoid pain, nasal discharge or nasal congestion Card: Denies: chest pain, edema, dyspnea on exertion or orthopnea Resp: Denies: dyspnea, productive cough or non-productive cough GI: Denies: abdominal pain, nausea, vomiting, hematemesis, coffee ground emesis, diarrhea, constipation, bloating, hematochezia or melena : Denies: flank pain, dysuria, urinary frequency or urinary urgency Skin/Breast: Denies: rash or pruritus PFSH ED PFSH: Medical History Diabetes 1.5, managed as type 2 Hyperlipidemia Hypertension Pulmonary embolism Surgical History H/O hernia repair Family History Grandfather Stroke CAD (coronary artery disease) Father Cancer Social History Smoking and tobacco status: never smoked Alcohol intake: current Alcohol intake frequency: 0-2 Drinks per Day Alcohol type: hard liquor Desire information about alcohol rehabilitation?: No Counseling given: No Physical Exam Const: COMMON NORMALS: no acute distress GENERAL APPEARANCE: cooperative and comfortable ORIENTATION/CONSCIOUSNESS: Yes awake, Yes oriented to person, Yes oriented to place and Yes oriented to time HENMT: COMMON NORMALS: normocephalic, atraumatic, hearing grossly normal bilaterally and external ears normal HEAD & SCALP: normocephalic and atraumatic EXTERNAL EAR: Yes external ears normal Neck/C-Spine: COMMON NORMALS: no JVD Resp: COMMON NORMALS: normal respiratory effort, No retractions, No use of accessory muscles and clear to auscultation bilaterally AUSCULTATION: clear to auscultation bilaterally Cardio: COMMON NORMALS: no JVD, regular rate, regular rhythm and No murmurs present (Cardio) RATE: regular rate RHYTHM: regular rhythm GI: COMMON NORMALS: Soft to palpation and No hepatosplenomegaly present AUSCULTATION: Yes normoactive bowel sounds PALPATION: Yes Soft to palpation, No Tenderness to palpation present (GI), No Guarding due to palpation present (GI) and Yes No hepatosplenomegaly present Extremity: COMMON NORMALS: normal to inspection, capillary refill normal, no clubbing, cyanosis or edema, no calf tenderness and no pedal edema Neuro: SENSORIUM/ORIENTATION: Yes oriented to person, Yes oriented to place and Yes oriented to time Skin: COMMON NORMALS: no rashes or lesions noted GENERAL SKIN EXAM: no rashes or lesions noted Course Vital Signs: Vital signs: Vital Signs Temperature 97.8 F 05/13/21 03:51 Pulse Rate 80 05/13/21 06:00 Respiratory Rate 16 05/13/21 03:51 Blood Pressure 95/59 05/13/21 03:51 Pulse Oximetry 97 05/13/21 03:51 MDM - General Adult MDM Narrative: Medical decision making narrative: 50-year-old male initiated care in the ER. Saline bolus ordered due to hypotension. Care turned over to Dr. Posadas at change of shift to see his notes for final diagnosis and disposition Lab Data: Labs: Lab Results 05/11/21 05/11/21 05/11/21 Range/Units 16:10 16:10 16:10 WBC 12.0 H (4.0-10.0) 10^3/ uL RBC 5.05 (4.1-5.3) 10^6/u L Hgb 15.7 (11.7-16.6) g/dL Hct 47.1 (42.0-52.0) % MCV 93.3 (80-94) fL MCH 31.1 (28.0-34.0) pg MCHC 33.3 (30.0-36.0) g/dL RDW 13.4 (12.1-15.1) % Plt Count 233 (130-400) 10^3/c mm MPV 10.8 H (7.4-10.4) fL Neut % (Auto) 62.5 % Lymph % (Auto) 25.7 % Carson % (Auto) 10.4 % Eos % (Auto) 0.8 % Baso % (Auto) 0.3 % Neut # (Auto) 7.49 (1.8-7.7) 10^3/u L Lymph # (Auto) 3.1 (0.8-4.8) 10^3/u L Carson # (Auto) 1.2 H (0.2-0.9) 10^3/u L Eos # (Auto) 0.1 (0.0-0.8) 10^3/u L Baso # (Auto) 0.0 (0.0-0.1) 10^3/u L Nucleated RBC % (a uto) 0 % Nucleated RBCs # 0.0 /100WBC Specimen Type Sample Site ABG pH (7.35-7.45) ABG pCO2 (35-45) mmHg ABG pO2 (80.0-100.0) mmH g ABG HCO3 (22-26) mmol/L ABG O2 Saturation ABG Base Excess (-2.0-2.0) mmol/ L Chad Test A-a O2 Gradient (5-10) mmHg Hematocrit (42-52) % Hgb O2 Saturation (95-100) % Carboxyhemoglobin (0.4-20.1) %THgb Methemoglobin (0.4-1.5) % Total Hemoglobin (14-18) g/dL Ionized Calcium (1.1-1.4) mmol/L O2 Delivery Device FiO2 % Geodetic Surveyor ID Sodium Cancelled Potassium Cancelled Chloride Cancelled Carbon Dioxide Cancelled Anion Gap Cancelled BUN Cancelled Creatinine Cancelled GFR Calculation Cancelled Glucose Cancelled POC Glucose (70-110) mg/dL Estimat Average Gl ucose Hemoglobin A1c (4.0-6.0) % Calculated Osmolal ity Cancelled Calcium Cancelled Magnesium (1.7-2.3) mg/dL Iron (59-158) ug/dL TIBC mcg/dl % Saturation (20-50) % Unsat Iron Binding (112-347) ug/dL Total Bilirubin Cancelled AST Cancelled ALT Cancelled Alkaline Phosphata se Cancelled Troponin T Baselin e Cancelled Troponin T 120 Min port gamble (0-15) ng/L Delta Troponin T (0-10) ABS# Troponin T Hi Sens 6Hr (0-15) ng/L Troponin T Hi Sens 6Hr Delta (0-12) ng/L Total Protein Cancelled Albumin Cancelled Globulin Cancelled Triglycerides (0-150) mg/dL Cholesterol (0-200) mg/dL LDL Cholesterol, C alc (50-129) mg/dL Total VLDL Cholest flavio (0-30) mg/dL HDL Cholesterol (60-100) mg/dL Cholesterol/HDL Ra shannon (1.0-5.00) mg/dL TSH (0.27-4.20) uIU/ mL Urine Color (Yellow) Urine Appearance (CLEAR) Urine pH (5-7) Ur Specific Gravit y (1.005-1.030) Urine Protein (Negative) Urine Glucose (UA) (Normal) Urine Ketones (Negative) Urine Blood (Negative) Urine Nitrate (Negative) Urine Bilirubin (Negative) Urine Urobilinogen (Negative) mg/dL Ur Leukocyte Soumya ase (Negative) Urine RBC (0-2) /hpf Urine WBC (0-5) /hpf Ur Eosinophil Smea r (0-0) Ur Squamous Epith Cells (0-5) /hpf Amorphous Sediment /hpf Urine Bacteria (NONE) /hpf Urine Mucus /hpf Urine Eosinophils Ur Random Microalb umin (0-20) ug/dL Ur Random Sodium mmol/L Ur Random Potassiu m mmol/L Ur Random Chloride mmol/L Urine Creatinine (39-259) mg/dL Microalb/Creat Rat io (0-20) mg/dL 05/11/21 05/11/21 05/11/21 Range/Units 16:50 17:52 17:52 WBC (4.0-10.0) 10^3/ uL RBC (4.1-5.3) 10^6/u L Hgb (11.7-16.6) g/dL Hct (42.0-52.0) % MCV (80-94) fL MCH (28.0-34.0) pg MCHC (30.0-36.0) g/dL RDW (12.1-15.1) % Plt Count (130-400) 10^3/c mm MPV (7.4-10.4) fL Neut % (Auto) % Lymph % (Auto) % Carson % (Auto) % Eos % (Auto) % Baso % (Auto) % Neut # (Auto) (1.8-7.7) 10^3/u L Lymph # (Auto) (0.8-4.8) 10^3/u L Carson # (Auto) (0.2-0.9) 10^3/u L Eos # (Auto) (0.0-0.8) 10^3/u L Baso # (Auto) (0.0-0.1) 10^3/u L Nucleated RBC % (a uto) % Nucleated RBCs # /100WBC Specimen Type Arterial Sample Site Radial, right ABG pH 7.37 (7.35-7.45) ABG pCO2 31.8 L (35-45) mmHg ABG pO2 73.7 L (80.0-100.0) mmH g ABG HCO3 18.3 L (22-26) mmol/L ABG O2 Saturation 94.7 ABG Base Excess -5.9 L (-2.0-2.0) mmol/ L Chad Test Pos A-a O2 Gradient 4.7 L (5-10) mmHg Hematocrit 43.8 (42-52) % Hgb O2 Saturation 93.0 L (95-100) % Carboxyhemoglobin 0.6 (0.4-20.1) %THgb Methemoglobin 1.2 (0.4-1.5) % Total Hemoglobin 14.3 (14-18) g/dL Ionized Calcium 1.3 (1.1-1.4) mmol/L O2 Delivery Device Room air FiO2 21.0 % Geodetic Surveyor ID Amh Sodium 137.0 137 Potassium 4.1 4.2 Chloride 101 Carbon Dioxide 21 L Anion Gap 19.2 H BUN 57 H Creatinine 5.8 H* GFR Calculation 10.4 L Glucose 115.0 98 POC Glucose (70-110) mg/dL Estimat Average Gl ucose Hemoglobin A1c (4.0-6.0) % Calculated Osmolal ity 300 H Calcium 8.8 Magnesium (1.7-2.3) mg/dL Iron (59-158) ug/dL TIBC mcg/dl % Saturation (20-50) % Unsat Iron Binding (112-347) ug/dL Total Bilirubin 0.2 AST 13 ALT 15 Alkaline Phosphata se 71 Troponin T Baselin e 21 H Troponin T 120 Min port gamble (0-15) ng/L Delta Troponin T (0-10) ABS# Troponin T Hi Sens 6Hr (0-15) ng/L Troponin T Hi Sens 6Hr Delta (0-12) ng/L Total Protein 7.1 Albumin 4.3 Globulin 2.8 Triglycerides (0-150) mg/dL Cholesterol (0-200) mg/dL LDL Cholesterol, C alc (50-129) mg/dL Total VLDL Cholest flavio (0-30) mg/dL HDL Cholesterol (60-100) mg/dL Cholesterol/HDL Ra shannon (1.0-5.00) mg/dL TSH (0.27-4.20) uIU/ mL Urine Color (Yellow) Urine Appearance (CLEAR) Urine pH (5-7) Ur Specific Gravit y (1.005-1.030) Urine Protein (Negative) Urine Glucose (UA) (Normal) Urine Ketones (Negative) Urine Blood (Negative) Urine Nitrate (Negative) Urine Bilirubin (Negative) Urine Urobilinogen (Negative) mg/dL Ur Leukocyte Soumya ase (Negative) Urine RBC (0-2) /hpf Urine WBC (0-5) /hpf Ur Eosinophil Smea r (0-0) Ur Squamous Epith Cells (0-5) /hpf Amorphous Sediment /hpf Urine Bacteria (NONE) /hpf Urine Mucus /hpf Urine Eosinophils Ur Random Microalb umin (0-20) ug/dL Ur Random Sodium mmol/L Ur Random Potassiu m mmol/L Ur Random Chloride mmol/L Urine Creatinine (39-259) mg/dL Microalb/Creat Rat io (0-20) mg/dL 05/11/21 05/11/21 05/11/21 Range/Units 18:55 18:57 18:57 WBC (4.0-10.0) 10^3/ uL RBC (4.1-5.3) 10^6/u L Hgb (11.7-16.6) g/dL Hct (42.0-52.0) % MCV (80-94) fL MCH (28.0-34.0) pg MCHC (30.0-36.0) g/dL RDW (12.1-15.1) % Plt Count (130-400) 10^3/c mm MPV (7.4-10.4) fL Neut % (Auto) % Lymph % (Auto) % Carson % (Auto) % Eos % (Auto) % Baso % (Auto) % Neut # (Auto) (1.8-7.7) 10^3/u L Lymph # (Auto) (0.8-4.8) 10^3/u L Carson # (Auto) (0.2-0.9) 10^3/u L Eos # (Auto) (0.0-0.8) 10^3/u L Baso # (Auto) (0.0-0.1) 10^3/u L Nucleated RBC % (a uto) % Nucleated RBCs # /100WBC Specimen Type Sample Site ABG pH (7.35-7.45) ABG pCO2 (35-45) mmHg ABG pO2 (80.0-100.0) mmH g ABG HCO3 (22-26) mmol/L ABG O2 Saturation ABG Base Excess (-2.0-2.0) mmol/ L Chad Test A-a O2 Gradient (5-10) mmHg Hematocrit (42-52) % Hgb O2 Saturation (95-100) % Carboxyhemoglobin (0.4-20.1) %THgb Methemoglobin (0.4-1.5) % Total Hemoglobin (14-18) g/dL Ionized Calcium (1.1-1.4) mmol/L O2 Delivery Device FiO2 % Geodetic Surveyor ID Sodium Potassium Chloride Carbon Dioxide Anion Gap BUN Creatinine GFR Calculation Glucose POC Glucose (70-110) mg/dL Estimat Average Gl ucose Hemoglobin A1c (4.0-6.0) % Calculated Osmolal ity Calcium Magnesium (1.7-2.3) mg/dL Iron (59-158) ug/dL TIBC mcg/dl % Saturation (20-50) % Unsat Iron Binding (112-347) ug/dL Total Bilirubin AST ALT Alkaline Phosphata se Troponin T Baselin e Troponin T 120 Min port gamble (0-15) ng/L Delta Troponin T (0-10) ABS# Troponin T Hi Sens 6Hr (0-15) ng/L Troponin T Hi Sens 6Hr Delta (0-12) ng/L Total Protein Albumin Globulin Triglycerides (0-150) mg/dL Cholesterol (0-200) mg/dL LDL Cholesterol, C alc (50-129) mg/dL Total VLDL Cholest flavio (0-30) mg/dL HDL Cholesterol (60-100) mg/dL Cholesterol/HDL Ra shannon (1.0-5.00) mg/dL TSH (0.27-4.20) uIU/ mL Urine Color Yellow (Yellow) Urine Appearance Cloudy (CLEAR) Urine pH 5 (5-7) Ur Specific Gravit y 1.025 (1.005-1.030) Urine Protein 2+ H (Negative) Urine Glucose (UA) Norm (Normal) Urine Ketones 1+ H (Negative) Urine Blood 2+ H (Negative) Urine Nitrate Negative (Negative) Urine Bilirubin 1+ H (Negative) Urine Urobilinogen 1 H (Negative) mg/dL Ur Leukocyte Soumya ase Trace H (Negative) Urine RBC 0-4 H (0-2) /hpf Urine WBC 10-15 H (0-5) /hpf Ur Eosinophil Smea r 0 (0-0) Ur Squamous Epith Cells 0-4 H (0-5) /hpf Amorphous Sediment 3+ /hpf Urine Bacteria 2+ H (NONE) /hpf Urine Mucus 1+ /hpf Urine Eosinophils No eosinophils se en Ur Random Microalb umin 67 H (0-20) ug/dL Ur Random Sodium 60 mmol/L Ur Random Potassiu m 44 mmol/L Ur Random Chloride 21 mmol/L Urine Creatinine 368 H 370 H (39-259) mg/dL Microalb/Creat Rat io 182 H (0-20) mg/dL 05/11/21 05/11/21 05/11/21 Range/Units 19:55 20:59 23:41 WBC (4.0-10.0) 10^3/ uL RBC (4.1-5.3) 10^6/u L Hgb (11.7-16.6) g/dL Hct (42.0-52.0) % MCV (80-94) fL MCH (28.0-34.0) pg MCHC (30.0-36.0) g/dL RDW (12.1-15.1) % Plt Count (130-400) 10^3/c mm MPV (7.4-10.4) fL Neut % (Auto) % Lymph % (Auto) % Carson % (Auto) % Eos % (Auto) % Baso % (Auto) % Neut # (Auto) (1.8-7.7) 10^3/u L Lymph # (Auto) (0.8-4.8) 10^3/u L Carson # (Auto) (0.2-0.9) 10^3/u L Eos # (Auto) (0.0-0.8) 10^3/u L Baso # (Auto) (0.0-0.1) 10^3/u L Nucleated RBC % (a uto) % Nucleated RBCs # /100WBC Specimen Type Sample Site ABG pH (7.35-7.45) ABG pCO2 (35-45) mmHg ABG pO2 (80.0-100.0) mmH g ABG HCO3 (22-26) mmol/L ABG O2 Saturation ABG Base Excess (-2.0-2.0) mmol/ L Chad Test A-a O2 Gradient (5-10) mmHg Hematocrit (42-52) % Hgb O2 Saturation (95-100) % Carboxyhemoglobin (0.4-20.1) %THgb Methemoglobin (0.4-1.5) % Total Hemoglobin (14-18) g/dL Ionized Calcium (1.1-1.4) mmol/L O2 Delivery Device FiO2 % Geodetic Surveyor ID Sodium Potassium Chloride Carbon Dioxide Anion Gap BUN Creatinine GFR Calculation Glucose POC Glucose 95 (70-110) mg/dL Estimat Average Gl ucose Hemoglobin A1c (4.0-6.0) % Calculated Osmolal ity Calcium Magnesium (1.7-2.3) mg/dL Iron (59-158) ug/dL TIBC mcg/dl % Saturation (20-50) % Unsat Iron Binding (112-347) ug/dL Total Bilirubin AST ALT Alkaline Phosphata se Troponin T Baselin e Troponin T 120 Min port gamble 13.98 (0-15) ng/L Delta Troponin T -7.02 L (0-10) ABS# Troponin T Hi Sens 6Hr 14.49 (0-15) ng/L Troponin T Hi Sens 6Hr Delta -6.51 L (0-12) ng/L Total Protein Albumin Globulin Triglycerides (0-150) mg/dL Cholesterol (0-200) mg/dL LDL Cholesterol, C alc (50-129) mg/dL Total VLDL Cholest flavio (0-30) mg/dL HDL Cholesterol (60-100) mg/dL Cholesterol/HDL Ra shannon (1.0-5.00) mg/dL TSH (0.27-4.20) uIU/ mL Urine Color (Yellow) Urine Appearance (CLEAR) Urine pH (5-7) Ur Specific Gravit y (1.005-1.030) Urine Protein (Negative) Urine Glucose (UA) (Normal) Urine Ketones (Negative) Urine Blood (Negative) Urine Nitrate (Negative) Urine Bilirubin (Negative) Urine Urobilinogen (Negative) mg/dL Ur Leukocyte Soumya ase (Negative) Urine RBC (0-2) /hpf Urine WBC (0-5) /hpf Ur Eosinophil Smea r (0-0) Ur Squamous Epith Cells (0-5) /hpf Amorphous Sediment /hpf Urine Bacteria (NONE) /hpf Urine Mucus /hpf Urine Eosinophils Ur Random Microalb umin (0-20) ug/dL Ur Random Sodium mmol/L Ur Random Potassiu m mmol/L Ur Random Chloride mmol/L Urine Creatinine (39-259) mg/dL Microalb/Creat Rat io (0-20) mg/dL 05/12/21 05/12/21 05/12/21 Range/Units 06:05 06:05 06:05 WBC 9.9 (4.0-10.0) 10^3/ uL RBC 4.44 (4.1-5.3) 10^6/u L Hgb 13.7 (11.7-16.6) g/dL Hct 43.5 (42.0-52.0) % MCV 98.0 H D (80-94) fL MCH 30.9 (28.0-34.0) pg MCHC 31.5 D (30.0-36.0) g/dL RDW 13.7 (12.1-15.1) % Plt Count 183 (130-400) 10^3/c mm MPV 10.7 H (7.4-10.4) fL Neut % (Auto) 63.0 % Lymph % (Auto) 23.6 % Carson % (Auto) 9.9 % Eos % (Auto) 2.6 % Baso % (Auto) 0.6 % Neut # (Auto) 6.26 (1.8-7.7) 10^3/u L Lymph # (Auto) 2.3 (0.8-4.8) 10^3/u L Carson # (Auto) 1.0 H (0.2-0.9) 10^3/u L Eos # (Auto) 0.3 (0.0-0.8) 10^3/u L Baso # (Auto) 0.1 (0.0-0.1) 10^3/u L Nucleated RBC % (a uto) 0 % Nucleated RBCs # 0.0 /100WBC Specimen Type Sample Site ABG pH (7.35-7.45) ABG pCO2 (35-45) mmHg ABG pO2 (80.0-100.0) mmH g ABG HCO3 (22-26) mmol/L ABG O2 Saturation ABG Base Excess (-2.0-2.0) mmol/ L Chad Test A-a O2 Gradient (5-10) mmHg Hematocrit (42-52) % Hgb O2 Saturation (95-100) % Carboxyhemoglobin (0.4-20.1) %THgb Methemoglobin (0.4-1.5) % Total Hemoglobin (14-18) g/dL Ionized Calcium (1.1-1.4) mmol/L O2 Delivery Device FiO2 % Geodetic Surveyor ID Sodium 138 Potassium 5.2 H Chloride 105 Carbon Dioxide 24 Anion Gap 14.2 BUN 56 H Creatinine 3.7 H GFR Calculation 17.5 L Glucose 114 POC Glucose (70-110) mg/dL Estimat Average Gl ucose Hemoglobin A1c (4.0-6.0) % Calculated Osmolal ity 302 H Calcium 9.1 Magnesium 2.9 H (1.7-2.3) mg/dL Iron 64 (59-158) ug/dL TIBC 277 mcg/dl % Saturation 23.1 (20-50) % Unsat Iron Binding 213 (112-347) ug/dL Total Bilirubin 0.3 AST 13 ALT 15 Alkaline Phosphata se 75 Troponin T Baselin e Troponin T 120 Min port gamble (0-15) ng/L Delta Troponin T (0-10) ABS# Troponin T Hi Sens 6Hr (0-15) ng/L Troponin T Hi Sens 6Hr Delta (0-12) ng/L Total Protein 6.9 Albumin 4.2 Globulin 2.7 Triglycerides (0-150) mg/dL Cholesterol (0-200) mg/dL LDL Cholesterol, C alc (50-129) mg/dL Total VLDL Cholest flavio (0-30) mg/dL HDL Cholesterol (60-100) mg/dL Cholesterol/HDL Ra shannon (1.0-5.00) mg/dL TSH (0.27-4.20) uIU/ mL Urine Color (Yellow) Urine Appearance (CLEAR) Urine pH (5-7) Ur Specific Gravit y (1.005-1.030) Urine Protein (Negative) Urine Glucose (UA) (Normal) Urine Ketones (Negative) Urine Blood (Negative) Urine Nitrate (Negative) Urine Bilirubin (Negative) Urine Urobilinogen (Negative) mg/dL Ur Leukocyte Soumya ase (Negative) Urine RBC (0-2) /hpf Urine WBC (0-5) /hpf Ur Eosinophil Smea r (0-0) Ur Squamous Epith Cells (0-5) /hpf Amorphous Sediment /hpf Urine Bacteria (NONE) /hpf Urine Mucus /hpf Urine Eosinophils Ur Random Microalb umin (0-20) ug/dL Ur Random Sodium mmol/L Ur Random Potassiu m mmol/L Ur Random Chloride mmol/L Urine Creatinine (39-259) mg/dL Microalb/Creat Rat io (0-20) mg/dL 05/12/21 05/12/21 05/12/21 Range/Units 06:05 06:05 06:24 WBC (4.0-10.0) 10^3/ uL RBC (4.1-5.3) 10^6/u L Hgb (11.7-16.6) g/dL Hct (42.0-52.0) % MCV (80-94) fL MCH (28.0-34.0) pg MCHC (30.0-36.0) g/dL RDW (12.1-15.1) % Plt Count (130-400) 10^3/c mm MPV (7.4-10.4) fL Neut % (Auto) % Lymph % (Auto) % Carson % (Auto) % Eos % (Auto) % Baso % (Auto) % Neut # (Auto) (1.8-7.7) 10^3/u L Lymph # (Auto) (0.8-4.8) 10^3/u L Carson # (Auto) (0.2-0.9) 10^3/u L Eos # (Auto) (0.0-0.8) 10^3/u L Baso # (Auto) (0.0-0.1) 10^3/u L Nucleated RBC % (a uto) % Nucleated RBCs # /100WBC Specimen Type Sample Site ABG pH (7.35-7.45) ABG pCO2 (35-45) mmHg ABG pO2 (80.0-100.0) mmH g ABG HCO3 (22-26) mmol/L ABG O2 Saturation ABG Base Excess (-2.0-2.0) mmol/ L Chad Test A-a O2 Gradient (5-10) mmHg Hematocrit (42-52) % Hgb O2 Saturation (95-100) % Carboxyhemoglobin (0.4-20.1) %THgb Methemoglobin (0.4-1.5) % Total Hemoglobin (14-18) g/dL Ionized Calcium (1.1-1.4) mmol/L O2 Delivery Device FiO2 % Geodetic Surveyor ID Sodium Potassium Chloride Carbon Dioxide Anion Gap BUN Creatinine GFR Calculation Glucose POC Glucose 113 H (70-110) mg/dL Estimat Average Gl ucose 123 Hemoglobin A1c 5.9 (4.0-6.0) % Calculated Osmolal ity Calcium Magnesium (1.7-2.3) mg/dL Iron (59-158) ug/dL TIBC mcg/dl % Saturation (20-50) % Unsat Iron Binding (112-347) ug/dL Total Bilirubin AST ALT Alkaline Phosphata se Troponin T Baselin e Troponin T 120 Min port gamble (0-15) ng/L Delta Troponin T (0-10) ABS# Troponin T Hi Sens 6Hr (0-15) ng/L Troponin T Hi Sens 6Hr Delta (0-12) ng/L Total Protein Albumin Globulin Triglycerides 344 H (0-150) mg/dL Cholesterol 218 H (0-200) mg/dL LDL Cholesterol, C alc 111 (50-129) mg/dL Total VLDL Cholest flavio 69 H (0-30) mg/dL HDL Cholesterol 38 L (60-100) mg/dL Cholesterol/HDL Ra shannon 5.74 H (1.0-5.00) mg/dL TSH 0.80 (0.27-4.20) uIU/ mL Urine Color (Yellow) Urine Appearance (CLEAR) Urine pH (5-7) Ur Specific Gravit y (1.005-1.030) Urine Protein (Negative) Urine Glucose (UA) (Normal) Urine Ketones (Negative) Urine Blood (Negative) Urine Nitrate (Negative) Urine Bilirubin (Negative) Urine Urobilinogen (Negative) mg/dL Ur Leukocyte Soumya ase (Negative) Urine RBC (0-2) /hpf Urine WBC (0-5) /hpf Ur Eosinophil Smea r (0-0) Ur Squamous Epith Cells (0-5) /hpf Amorphous Sediment /hpf Urine Bacteria (NONE) /hpf Urine Mucus /hpf Urine Eosinophils Ur Random Microalb umin (0-20) ug/dL Ur Random Sodium mmol/L Ur Random Potassiu m mmol/L Ur Random Chloride mmol/L Urine Creatinine (39-259) mg/dL Microalb/Creat Rat io (0-20) mg/dL EKG Data^: EKG 1: Computer generated interpretation: Chest X-Ray 05/12/21 05:17 IMPRESSION: There are low lung volumes. Otherwise, the lungs are clear. Abdomen/Pelvis CT 05/12/21 09:36 IMPRESSION: 1. No hydronephrosis in either kidney. Mild bilateral perinephric edema can be seen with renal insufficiency. 2. Henley catheter in place. Bladder is decompressed. 3. No free fluid in the pelvis. 4. No evidence of small or large bowel obstruction. 5. No other significant findings. Renal Ultrasound 05/12/21 23:28 IMPRESSION: Normal renal ultrasound Discharge Plan Discharge Patient Disposition: Admitted As Inpatient Admit Provider: Radha Gutierrez Clinical Impression: Heatstroke, Dehydration, severe, Acute renal failure, Generalized weakness, Hypotension Condition: Stable Coding Level of Care Code ED Mechanical Artist for Chg Fwd Exam Comprehensive Documented by User: Brian Posadas MD 05/11/21 19:19 HPI - General Adult General: Chief complaint: General Medical Stated complaint: OVER HEATED/ NAUSEA Time Seen by Provider: 05/11/21 16:14 History of Present Illness: HPI narrative: 50-year-old male presents to the emergency room with complaint of not feeling well.Patient worked outside yesterday got weak lightheaded dizzy near syncopal-like episode and had a repeat today. Blood pressure at this time is 100/61 heart rate 98. Onset (ago): day(s) Associated symptoms: Deny chest pain, dyspnea, headache(s), nausea, rash, palpitations or vomiting Review of Systems General: Reports: 10 or more systems reviewed and unremarkable except in HPI and below Const: Denies: fever(s), chills, body aches or fatigue Eyes: Denies: change in vision or blurry vision ENMT: Denies: throat pain, hoarseness or mouth pain Card: Denies: chest pain, palpitations, irregular heart rhythm, edema, swelling of feet/ankles or lightheadedness Resp: Denies: dyspnea, productive cough, non-productive cough, wheezing or pain on inspiration GI: Denies: abdominal pain, nausea or vomiting : Denies: flank pain, dysuria, urinary frequency, urinary urgency or urinary hesitancy Musc: Denies: neck pain, back pain, extremity pain, extremity swelling, joint pain, joint swelling, joint redness, joint warmth or limited range of motion Skin/Breast: Denies: rash, pruritus, erythema or skin tenderness Neuro: Denies: headache(s), numbness in extremities or weakness in extremities Psych: Denies: anxiety or depression PFSH ED PFSH: Medical History Diabetes 1.5, managed as type 2 Hyperlipidemia Hypertension Pulmonary embolism Surgical History H/O hernia repair Family History Grandfather Stroke CAD (coronary artery disease) Father Cancer Social History Smoking and tobacco status: never smoked Alcohol intake: current Alcohol intake frequency: 0-2 Drinks per Day Alcohol type: hard liquor Desire information about alcohol rehabilitation?: No Counseling given: No Physical Exam Const: COMMON NORMALS: no acute distress, average body habitus, patient oriented x3, no limitations, healthy appearing, alert and well nourished HENMT: COMMON NORMALS: normocephalic, atraumatic, hearing grossly normal bilaterally, external ears normal, EAC's normal, TM's normal bilaterally, Normal external nose present, Normal nasal mucous membranes and turbinates present, moist oral mucous membranes, oropharynx normal, dentition normal and gingiva normal HEAD & SCALP: normocephalic and atraumatic NOSE: Normal external nose present and Normal nasal mucous membranes and turbinates present EXTERNAL EAR: Yes external ears normal EXTERNAL AUDITORY CANAL: EAC's normal TYMPANIC MEMBRANE: TM's normal bilaterally Neck/C-Spine: COMMON NORMALS: full ROM, no lymphadenopathy, supple, no meningeal signs, no JVD, Thyroid normal and No carotid bruits THYROID: Thyroid normal Chest: COMMONS NORMALS: normal inspection of the chest, normal palpation of entire chest wall, normal inspection of the breasts and normal palpation of the breasts Breast/axilla inspection: Yes normal inspection of the breasts BREAST/AXILLA PALPATION: Yes normal palpation of the breasts Resp: COMMON NORMALS: normal respiratory effort, No retractions, No use of accessory muscles, clear to auscultation bilaterally and percussion normal AUSCULTATION: clear to auscultation bilaterally PERCUSSION: percussion normal Cardio: COMMON NORMALS: no JVD, regular rate, regular rhythm, S1 normal heart sound present, S2 normal heart sound present, No gallops present (Cardio), No clicks present (Cardio), No murmurs present (Cardio), No rub (Cardio) and Peripheral pulses 2+ throughout RATE: regular rate RHYTHM: regular rhythm HEART SOUNDS: S1 normal heart sound present and S2 normal heart sound present PERIPHERAL PULSES: Peripheral pulses 2+ throughout GI: COMMON NORMALS: Normal to inspection, nondistended, normoactive bowel sounds present, Soft to palpation, non-tender, No hepatosplenomegaly present, no masses and no bruits PALPATION: Yes Soft to palpation and Yes No hepatosplenomegaly present : COMMON NORMALS: Yes no CVA tenderness BLADDER/KIDNEY EXAM: Yes no CVA tenderness Back/Pelvis: COMMON NORMALS: no CVA tenderness, thoracic and lumbar spine normal to inspection, no thoracic nor lumbar tenderness, thoraco-lumbar ROM normal and straight leg raise negative bilaterally Extremity: COMMON NORMALS: normal to inspection, full ROM, capillary refill normal, no joint enlargement, no clubbing, cyanosis or edema, no calf tenderness and no pedal edema Neuro: COMMON NORMALS: patient oriented x3 SENSORIUM/ORIENTATION: Yes alert MENINGEAL SIGNS: Yes no meningeal signs Course Reevaluation(s): Reevaluation #1: Patient is feeling much improved. Patient's lab review shows patient is in acute renal failure most likely had heatstroke yesterday. Baseline BUN and creatinine are 17 and 0.8 but today is 57 and 5.8. Severely dehydrated. Generalized weakness and low blood pressure. Patient has had a 2 L bolus of fluid an hour to 15-hour. Patient is agreeable to staying in the hospital for further evaluation treatment and fluid hydration. Will notify hospitalist for admission. Time: 18:56 Consultations: Consultation #1: I did discuss at length with Dr. Gutierrez he is accepted this patient for admission. Time: 18:56 Vital Signs: Vital signs: Vital Signs Temperature 97.8 F 05/13/21 03:51 Pulse Rate 80 05/13/21 06:00 Respiratory Rate 16 05/13/21 03:51 Blood Pressure 95/59 05/13/21 03:51 Pulse Oximetry 97 05/13/21 03:51 MDM - General Adult MDM Narrative: Medical decision making narrative: 50-year-old male presents to the emergency room with complaint of not feeling well.Patient worked outside yesterday got weak lightheaded dizzy near syncopal-like episode and had a repeat today. Blood pressure at this time is 100/61 heart rate 98. Patient is feeling much improved. Patient's lab review shows patient is in acute renal failure most likely had heatstroke yesterday. Baseline BUN and creatinine are 17 and 0.8 but today is 57 and 5.8. Severely dehydrated. Generalized weakness and low blood pressure. Patient has had a 2 L bolus of fluid an hour to 15-hour. Patient is agreeable to staying in the hospital for further evaluation treatment and fluid hydration. Will notify hospitalist for admission. I did discuss at length with Dr. Gutierrez he is accepted this patient for admission. Lab Data: Labs: Lab Results 05/11/21 05/11/21 05/11/21 Range/Units 16:10 16:10 16:10 WBC 12.0 H (4.0-10.0) 10^3/ uL RBC 5.05 (4.1-5.3) 10^6/u L Hgb 15.7 (11.7-16.6) g/dL Hct 47.1 (42.0-52.0) % MCV 93.3 (80-94) fL MCH 31.1 (28.0-34.0) pg MCHC 33.3 (30.0-36.0) g/dL RDW 13.4 (12.1-15.1) % Plt Count 233 (130-400) 10^3/c mm MPV 10.8 H (7.4-10.4) fL Neut % (Auto) 62.5 % Lymph % (Auto) 25.7 % Carson % (Auto) 10.4 % Eos % (Auto) 0.8 % Baso % (Auto) 0.3 % Neut # (Auto) 7.49 (1.8-7.7) 10^3/u L Lymph # (Auto) 3.1 (0.8-4.8) 10^3/u L Carson # (Auto) 1.2 H (0.2-0.9) 10^3/u L Eos # (Auto) 0.1 (0.0-0.8) 10^3/u L Baso # (Auto) 0.0 (0.0-0.1) 10^3/u L Nucleated RBC % (a uto) 0 % Nucleated RBCs # 0.0 /100WBC Specimen Type Sample Site ABG pH (7.35-7.45) ABG pCO2 (35-45) mmHg ABG pO2 (80.0-100.0) mmH g ABG HCO3 (22-26) mmol/L ABG O2 Saturation ABG Base Excess (-2.0-2.0) mmol/ L Chad Test A-a O2 Gradient (5-10) mmHg Hematocrit (42-52) % Hgb O2 Saturation (95-100) % Carboxyhemoglobin (0.4-20.1) %THgb Methemoglobin (0.4-1.5) % Total Hemoglobin (14-18) g/dL Ionized Calcium (1.1-1.4) mmol/L O2 Delivery Device FiO2 % Geodetic Surveyor ID Sodium Cancelled Potassium Cancelled Chloride Cancelled Carbon Dioxide Cancelled Anion Gap Cancelled BUN Cancelled Creatinine Cancelled GFR Calculation Cancelled Glucose Cancelled POC Glucose (70-110) mg/dL Estimat Average Gl ucose Hemoglobin A1c (4.0-6.0) % Calculated Osmolal ity Cancelled Calcium Cancelled Magnesium (1.7-2.3) mg/dL Iron (59-158) ug/dL TIBC mcg/dl % Saturation (20-50) % Unsat Iron Binding (112-347) ug/dL Total Bilirubin Cancelled AST Cancelled ALT Cancelled Alkaline Phosphata se Cancelled Troponin T Baselin e Cancelled Troponin T 120 Min port gamble (0-15) ng/L Delta Troponin T (0-10) ABS# Troponin T Hi Sens 6Hr (0-15) ng/L Troponin T Hi Sens 6Hr Delta (0-12) ng/L Total Protein Cancelled Albumin Cancelled Globulin Cancelled Triglycerides (0-150) mg/dL Cholesterol (0-200) mg/dL LDL Cholesterol, C alc (50-129) mg/dL Total VLDL Cholest flavio (0-30) mg/dL HDL Cholesterol (60-100) mg/dL Cholesterol/HDL Ra shannon (1.0-5.00) mg/dL TSH (0.27-4.20) uIU/ mL Urine Color (Yellow) Urine Appearance (CLEAR) Urine pH (5-7) Ur Specific Gravit y (1.005-1.030) Urine Protein (Negative) Urine Glucose (UA) (Normal) Urine Ketones (Negative) Urine Blood (Negative) Urine Nitrate (Negative) Urine Bilirubin (Negative) Urine Urobilinogen (Negative) mg/dL Ur Leukocyte Soumya ase (Negative) Urine RBC (0-2) /hpf Urine WBC (0-5) /hpf Ur Eosinophil Smea r (0-0) Ur Squamous Epith Cells (0-5) /hpf Amorphous Sediment /hpf Urine Bacteria (NONE) /hpf Urine Mucus /hpf Urine Eosinophils Ur Random Microalb umin (0-20) ug/dL Ur Random Sodium mmol/L Ur Random Potassiu m mmol/L Ur Random Chloride mmol/L Urine Creatinine (39-259) mg/dL Microalb/Creat Rat io (0-20) mg/dL 05/11/21 05/11/21 05/11/21 Range/Units 16:50 17:52 17:52 WBC (4.0-10.0) 10^3/ uL RBC (4.1-5.3) 10^6/u L Hgb (11.7-16.6) g/dL Hct (42.0-52.0) % MCV (80-94) fL MCH (28.0-34.0) pg MCHC (30.0-36.0) g/dL RDW (12.1-15.1) % Plt Count (130-400) 10^3/c mm MPV (7.4-10.4) fL Neut % (Auto) % Lymph % (Auto) % Carson % (Auto) % Eos % (Auto) % Baso % (Auto) % Neut # (Auto) (1.8-7.7) 10^3/u L Lymph # (Auto) (0.8-4.8) 10^3/u L Carson # (Auto) (0.2-0.9) 10^3/u L Eos # (Auto) (0.0-0.8) 10^3/u L Baso # (Auto) (0.0-0.1) 10^3/u L Nucleated RBC % (a uto) % Nucleated RBCs # /100WBC Specimen Type Arterial Sample Site Radial, right ABG pH 7.37 (7.35-7.45) ABG pCO2 31.8 L (35-45) mmHg ABG pO2 73.7 L (80.0-100.0) mmH g ABG HCO3 18.3 L (22-26) mmol/L ABG O2 Saturation 94.7 ABG Base Excess -5.9 L (-2.0-2.0) mmol/ L Chad Test Pos A-a O2 Gradient 4.7 L (5-10) mmHg Hematocrit 43.8 (42-52) % Hgb O2 Saturation 93.0 L (95-100) % Carboxyhemoglobin 0.6 (0.4-20.1) %THgb Methemoglobin 1.2 (0.4-1.5) % Total Hemoglobin 14.3 (14-18) g/dL Ionized Calcium 1.3 (1.1-1.4) mmol/L O2 Delivery Device Room air FiO2 21.0 % Geodetic Surveyor ID Amh Sodium 137.0 137 Potassium 4.1 4.2 Chloride 101 Carbon Dioxide 21 L Anion Gap 19.2 H BUN 57 H Creatinine 5.8 H* GFR Calculation 10.4 L Glucose 115.0 98 POC Glucose (70-110) mg/dL Estimat Average Gl ucose Hemoglobin A1c (4.0-6.0) % Calculated Osmolal ity 300 H Calcium 8.8 Magnesium (1.7-2.3) mg/dL Iron (59-158) ug/dL TIBC mcg/dl % Saturation (20-50) % Unsat Iron Binding (112-347) ug/dL Total Bilirubin 0.2 AST 13 ALT 15 Alkaline Phosphata se 71 Troponin T Baselin e 21 H Troponin T 120 Min port gamble (0-15) ng/L Delta Troponin T (0-10) ABS# Troponin T Hi Sens 6Hr (0-15) ng/L Troponin T Hi Sens 6Hr Delta (0-12) ng/L Total Protein 7.1 Albumin 4.3 Globulin 2.8 Triglycerides (0-150) mg/dL Cholesterol (0-200) mg/dL LDL Cholesterol, C alc (50-129) mg/dL Total VLDL Cholest flavio (0-30) mg/dL HDL Cholesterol (60-100) mg/dL Cholesterol/HDL Ra shannon (1.0-5.00) mg/dL TSH (0.27-4.20) uIU/ mL Urine Color (Yellow) Urine Appearance (CLEAR) Urine pH (5-7) Ur Specific Gravit y (1.005-1.030) Urine Protein (Negative) Urine Glucose (UA) (Normal) Urine Ketones (Negative) Urine Blood (Negative) Urine Nitrate (Negative) Urine Bilirubin (Negative) Urine Urobilinogen (Negative) mg/dL Ur Leukocyte Soumya ase (Negative) Urine RBC (0-2) /hpf Urine WBC (0-5) /hpf Ur Eosinophil Smea r (0-0) Ur Squamous Epith Cells (0-5) /hpf Amorphous Sediment /hpf Urine Bacteria (NONE) /hpf Urine Mucus /hpf Urine Eosinophils Ur Random Microalb umin (0-20) ug/dL Ur Random Sodium mmol/L Ur Random Potassiu m mmol/L Ur Random Chloride mmol/L Urine Creatinine (39-259) mg/dL Microalb/Creat Rat io (0-20) mg/dL 05/11/21 05/11/21 05/11/21 Range/Units 18:55 18:57 18:57 WBC (4.0-10.0) 10^3/ uL RBC (4.1-5.3) 10^6/u L Hgb (11.7-16.6) g/dL Hct (42.0-52.0) % MCV (80-94) fL MCH (28.0-34.0) pg MCHC (30.0-36.0) g/dL RDW (12.1-15.1) % Plt Count (130-400) 10^3/c mm MPV (7.4-10.4) fL Neut % (Auto) % Lymph % (Auto) % Carson % (Auto) % Eos % (Auto) % Baso % (Auto) % Neut # (Auto) (1.8-7.7) 10^3/u L Lymph # (Auto) (0.8-4.8) 10^3/u L Carson # (Auto) (0.2-0.9) 10^3/u L Eos # (Auto) (0.0-0.8) 10^3/u L Baso # (Auto) (0.0-0.1) 10^3/u L Nucleated RBC % (a uto) % Nucleated RBCs # /100WBC Specimen Type Sample Site ABG pH (7.35-7.45) ABG pCO2 (35-45) mmHg ABG pO2 (80.0-100.0) mmH g ABG HCO3 (22-26) mmol/L ABG O2 Saturation ABG Base Excess (-2.0-2.0) mmol/ L Chad Test A-a O2 Gradient (5-10) mmHg Hematocrit (42-52) % Hgb O2 Saturation (95-100) % Carboxyhemoglobin (0.4-20.1) %THgb Methemoglobin (0.4-1.5) % Total Hemoglobin (14-18) g/dL Ionized Calcium (1.1-1.4) mmol/L O2 Delivery Device FiO2 % Geodetic Surveyor ID Sodium Potassium Chloride Carbon Dioxide Anion Gap BUN Creatinine GFR Calculation Glucose POC Glucose (70-110) mg/dL Estimat Average Gl ucose Hemoglobin A1c (4.0-6.0) % Calculated Osmolal ity Calcium Magnesium (1.7-2.3) mg/dL Iron (59-158) ug/dL TIBC mcg/dl % Saturation (20-50) % Unsat Iron Binding (112-347) ug/dL Total Bilirubin AST ALT Alkaline Phosphata se Troponin T Baselin e Troponin T 120 Min port gamble (0-15) ng/L Delta Troponin T (0-10) ABS# Troponin T Hi Sens 6Hr (0-15) ng/L Troponin T Hi Sens 6Hr Delta (0-12) ng/L Total Protein Albumin Globulin Triglycerides (0-150) mg/dL Cholesterol (0-200) mg/dL LDL Cholesterol, C alc (50-129) mg/dL Total VLDL Cholest flavio (0-30) mg/dL HDL Cholesterol (60-100) mg/dL Cholesterol/HDL Ra shannon (1.0-5.00) mg/dL TSH (0.27-4.20) uIU/ mL Urine Color Yellow (Yellow) Urine Appearance Cloudy (CLEAR) Urine pH 5 (5-7) Ur Specific Gravit y 1.025 (1.005-1.030) Urine Protein 2+ H (Negative) Urine Glucose (UA) Norm (Normal) Urine Ketones 1+ H (Negative) Urine Blood 2+ H (Negative) Urine Nitrate Negative (Negative) Urine Bilirubin 1+ H (Negative) Urine Urobilinogen 1 H (Negative) mg/dL Ur Leukocyte Soumya ase Trace H (Negative) Urine RBC 0-4 H (0-2) /hpf Urine WBC 10-15 H (0-5) /hpf Ur Eosinophil Smea r 0 (0-0) Ur Squamous Epith Cells 0-4 H (0-5) /hpf Amorphous Sediment 3+ /hpf Urine Bacteria 2+ H (NONE) /hpf Urine Mucus 1+ /hpf Urine Eosinophils No eosinophils se en Ur Random Microalb umin 67 H (0-20) ug/dL Ur Random Sodium 60 mmol/L Ur Random Potassiu m 44 mmol/L Ur Random Chloride 21 mmol/L Urine Creatinine 368 H 370 H (39-259) mg/dL Microalb/Creat Rat io 182 H (0-20) mg/dL 05/11/21 05/11/21 05/11/21 Range/Units 19:55 20:59 23:41 WBC (4.0-10.0) 10^3/ uL RBC (4.1-5.3) 10^6/u L Hgb (11.7-16.6) g/dL Hct (42.0-52.0) % MCV (80-94) fL MCH (28.0-34.0) pg MCHC (30.0-36.0) g/dL RDW (12.1-15.1) % Plt Count (130-400) 10^3/c mm MPV (7.4-10.4) fL Neut % (Auto) % Lymph % (Auto) % Carson % (Auto) % Eos % (Auto) % Baso % (Auto) % Neut # (Auto) (1.8-7.7) 10^3/u L Lymph # (Auto) (0.8-4.8) 10^3/u L Carson # (Auto) (0.2-0.9) 10^3/u L Eos # (Auto) (0.0-0.8) 10^3/u L Baso # (Auto) (0.0-0.1) 10^3/u L Nucleated RBC % (a uto) % Nucleated RBCs # /100WBC Specimen Type Sample Site ABG pH (7.35-7.45) ABG pCO2 (35-45) mmHg ABG pO2 (80.0-100.0) mmH g ABG HCO3 (22-26) mmol/L ABG O2 Saturation ABG Base Excess (-2.0-2.0) mmol/ L Chad Test A-a O2 Gradient (5-10) mmHg Hematocrit (42-52) % Hgb O2 Saturation (95-100) % Carboxyhemoglobin (0.4-20.1) %THgb Methemoglobin (0.4-1.5) % Total Hemoglobin (14-18) g/dL Ionized Calcium (1.1-1.4) mmol/L O2 Delivery Device FiO2 % Geodetic Surveyor ID Sodium Potassium Chloride Carbon Dioxide Anion Gap BUN Creatinine GFR Calculation Glucose POC Glucose 95 (70-110) mg/dL Estimat Average Gl ucose Hemoglobin A1c (4.0-6.0) % Calculated Osmolal ity Calcium Magnesium (1.7-2.3) mg/dL Iron (59-158) ug/dL TIBC mcg/dl % Saturation (20-50) % Unsat Iron Binding (112-347) ug/dL Total Bilirubin AST ALT Alkaline Phosphata se Troponin T Baselin e Troponin T 120 Min port gamble 13.98 (0-15) ng/L Delta Troponin T -7.02 L (0-10) ABS# Troponin T Hi Sens 6Hr 14.49 (0-15) ng/L Troponin T Hi Sens 6Hr Delta -6.51 L (0-12) ng/L Total Protein Albumin Globulin Triglycerides (0-150) mg/dL Cholesterol (0-200) mg/dL LDL Cholesterol, C alc (50-129) mg/dL Total VLDL Cholest flavio (0-30) mg/dL HDL Cholesterol (60-100) mg/dL Cholesterol/HDL Ra shannon (1.0-5.00) mg/dL TSH (0.27-4.20) uIU/ mL Urine Color (Yellow) Urine Appearance (CLEAR) Urine pH (5-7) Ur Specific Gravit y (1.005-1.030) Urine Protein (Negative) Urine Glucose (UA) (Normal) Urine Ketones (Negative) Urine Blood (Negative) Urine Nitrate (Negative) Urine Bilirubin (Negative) Urine Urobilinogen (Negative) mg/dL Ur Leukocyte Soumya ase (Negative) Urine RBC (0-2) /hpf Urine WBC (0-5) /hpf Ur Eosinophil Smea r (0-0) Ur Squamous Epith Cells (0-5) /hpf Amorphous Sediment /hpf Urine Bacteria (NONE) /hpf Urine Mucus /hpf Urine Eosinophils Ur Random Microalb umin (0-20) ug/dL Ur Random Sodium mmol/L Ur Random Potassiu m mmol/L Ur Random Chloride mmol/L Urine Creatinine (39-259) mg/dL Microalb/Creat Rat io (0-20) mg/dL 05/12/21 05/12/21 05/12/21 Range/Units 06:05 06:05 06:05 WBC 9.9 (4.0-10.0) 10^3/ uL RBC 4.44 (4.1-5.3) 10^6/u L Hgb 13.7 (11.7-16.6) g/dL Hct 43.5 (42.0-52.0) % MCV 98.0 H D (80-94) fL MCH 30.9 (28.0-34.0) pg MCHC 31.5 D (30.0-36.0) g/dL RDW 13.7 (12.1-15.1) % Plt Count 183 (130-400) 10^3/c mm MPV 10.7 H (7.4-10.4) fL Neut % (Auto) 63.0 % Lymph % (Auto) 23.6 % Carson % (Auto) 9.9 % Eos % (Auto) 2.6 % Baso % (Auto) 0.6 % Neut # (Auto) 6.26 (1.8-7.7) 10^3/u L Lymph # (Auto) 2.3 (0.8-4.8) 10^3/u L Carson # (Auto) 1.0 H (0.2-0.9) 10^3/u L Eos # (Auto) 0.3 (0.0-0.8) 10^3/u L Baso # (Auto) 0.1 (0.0-0.1) 10^3/u L Nucleated RBC % (a uto) 0 % Nucleated RBCs # 0.0 /100WBC Specimen Type Sample Site ABG pH (7.35-7.45) ABG pCO2 (35-45) mmHg ABG pO2 (80.0-100.0) mmH g ABG HCO3 (22-26) mmol/L ABG O2 Saturation ABG Base Excess (-2.0-2.0) mmol/ L Chad Test A-a O2 Gradient (5-10) mmHg Hematocrit (42-52) % Hgb O2 Saturation (95-100) % Carboxyhemoglobin (0.4-20.1) %THgb Methemoglobin (0.4-1.5) % Total Hemoglobin (14-18) g/dL Ionized Calcium (1.1-1.4) mmol/L O2 Delivery Device FiO2 % Geodetic Surveyor ID Sodium 138 Potassium 5.2 H Chloride 105 Carbon Dioxide 24 Anion Gap 14.2 BUN 56 H Creatinine 3.7 H GFR Calculation 17.5 L Glucose 114 POC Glucose (70-110) mg/dL Estimat Average Gl ucose Hemoglobin A1c (4.0-6.0) % Calculated Osmolal ity 302 H Calcium 9.1 Magnesium 2.9 H (1.7-2.3) mg/dL Iron 64 (59-158) ug/dL TIBC 277 mcg/dl % Saturation 23.1 (20-50) % Unsat Iron Binding 213 (112-347) ug/dL Total Bilirubin 0.3 AST 13 ALT 15 Alkaline Phosphata se 75 Troponin T Baselin e Troponin T 120 Min port gamble (0-15) ng/L Delta Troponin T (0-10) ABS# Troponin T Hi Sens 6Hr (0-15) ng/L Troponin T Hi Sens 6Hr Delta (0-12) ng/L Total Protein 6.9 Albumin 4.2 Globulin 2.7 Triglycerides (0-150) mg/dL Cholesterol (0-200) mg/dL LDL Cholesterol, C alc (50-129) mg/dL Total VLDL Cholest flavio (0-30) mg/dL HDL Cholesterol (60-100) mg/dL Cholesterol/HDL Ra shannon (1.0-5.00) mg/dL TSH (0.27-4.20) uIU/ mL Urine Color (Yellow) Urine Appearance (CLEAR) Urine pH (5-7) Ur Specific Gravit y (1.005-1.030) Urine Protein (Negative) Urine Glucose (UA) (Normal) Urine Ketones (Negative) Urine Blood (Negative) Urine Nitrate (Negative) Urine Bilirubin (Negative) Urine Urobilinogen (Negative) mg/dL Ur Leukocyte Soumya ase (Negative) Urine RBC (0-2) /hpf Urine WBC (0-5) /hpf Ur Eosinophil Smea r (0-0) Ur Squamous Epith Cells (0-5) /hpf Amorphous Sediment /hpf Urine Bacteria (NONE) /hpf Urine Mucus /hpf Urine Eosinophils Ur Random Microalb umin (0-20) ug/dL Ur Random Sodium mmol/L Ur Random Potassiu m mmol/L Ur Random Chloride mmol/L Urine Creatinine (39-259) mg/dL Microalb/Creat Rat io (0-20) mg/dL 05/12/21 05/12/21 05/12/21 Range/Units 06:05 06:05 06:24 WBC (4.0-10.0) 10^3/ uL RBC (4.1-5.3) 10^6/u L Hgb (11.7-16.6) g/dL Hct (42.0-52.0) % MCV (80-94) fL MCH (28.0-34.0) pg MCHC (30.0-36.0) g/dL RDW (12.1-15.1) % Plt Count (130-400) 10^3/c mm MPV (7.4-10.4) fL Neut % (Auto) % Lymph % (Auto) % Carson % (Auto) % Eos % (Auto) % Baso % (Auto) % Neut # (Auto) (1.8-7.7) 10^3/u L Lymph # (Auto) (0.8-4.8) 10^3/u L Carson # (Auto) (0.2-0.9) 10^3/u L Eos # (Auto) (0.0-0.8) 10^3/u L Baso # (Auto) (0.0-0.1) 10^3/u L Nucleated RBC % (a uto) % Nucleated RBCs # /100WBC Specimen Type Sample Site ABG pH (7.35-7.45) ABG pCO2 (35-45) mmHg ABG pO2 (80.0-100.0) mmH g ABG HCO3 (22-26) mmol/L ABG O2 Saturation ABG Base Excess (-2.0-2.0) mmol/ L Chad Test A-a O2 Gradient (5-10) mmHg Hematocrit (42-52) % Hgb O2 Saturation (95-100) % Carboxyhemoglobin (0.4-20.1) %THgb Methemoglobin (0.4-1.5) % Total Hemoglobin (14-18) g/dL Ionized Calcium (1.1-1.4) mmol/L O2 Delivery Device FiO2 % Geodetic Surveyor ID Sodium Potassium Chloride Carbon Dioxide Anion Gap BUN Creatinine GFR Calculation Glucose POC Glucose 113 H (70-110) mg/dL Estimat Average Gl ucose 123 Hemoglobin A1c 5.9 (4.0-6.0) % Calculated Osmolal ity Calcium Magnesium (1.7-2.3) mg/dL Iron (59-158) ug/dL TIBC mcg/dl % Saturation (20-50) % Unsat Iron Binding (112-347) ug/dL Total Bilirubin AST ALT Alkaline Phosphata se Troponin T Baselin e Troponin T 120 Min port gamble (0-15) ng/L Delta Troponin T (0-10) ABS# Troponin T Hi Sens 6Hr (0-15) ng/L Troponin T Hi Sens 6Hr Delta (0-12) ng/L Total Protein Albumin Globulin Triglycerides 344 H (0-150) mg/dL Cholesterol 218 H (0-200) mg/dL LDL Cholesterol, C alc 111 (50-129) mg/dL Total VLDL Cholest flavio 69 H (0-30) mg/dL HDL Cholesterol 38 L (60-100) mg/dL Cholesterol/HDL Ra shannon 5.74 H (1.0-5.00) mg/dL TSH 0.80 (0.27-4.20) uIU/ mL Urine Color (Yellow) Urine Appearance (CLEAR) Urine pH (5-7) Ur Specific Gravit y (1.005-1.030) Urine Protein (Negative) Urine Glucose (UA) (Normal) Urine Ketones (Negative) Urine Blood (Negative) Urine Nitrate (Negative) Urine Bilirubin (Negative) Urine Urobilinogen (Negative) mg/dL Ur Leukocyte Soumya ase (Negative) Urine RBC (0-2) /hpf Urine WBC (0-5) /hpf Ur Eosinophil Smea r (0-0) Ur Squamous Epith Cells (0-5) /hpf Amorphous Sediment /hpf Urine Bacteria (NONE) /hpf Urine Mucus /hpf Urine Eosinophils Ur Random Microalb umin (0-20) ug/dL Ur Random Sodium mmol/L Ur Random Potassiu m mmol/L Ur Random Chloride mmol/L Urine Creatinine (39-259) mg/dL Microalb/Creat Rat io (0-20) mg/dL EKG Data^: EKG 1: Attestation: I personally reviewed and interpreted this EKG as follows: EKG interpretation date: 05/11/21 EKG interpretation time: 18:09 Prior EKG tracings: available for review Interpretation: Normal sinus rhythm heart rate 65. Computer generated interpretation: Chest X-Ray 05/12/21 05:17 IMPRESSION: There are low lung volumes. Otherwise, the lungs are clear. Abdomen/Pelvis CT 05/12/21 09:36 IMPRESSION: 1. No hydronephrosis in either kidney. Mild bilateral perinephric edema can be seen with renal insufficiency. 2. Henley catheter in place. Bladder is decompressed. 3. No free fluid in the pelvis. 4. No evidence of small or large bowel obstruction. 5. No other significant findings. Renal Ultrasound 05/12/21 23:28
[2021-05-11 16:40] LABS: Basophils % 0.3 %; Eosinophils # 0.1 10^3/uL (0.0-0.8); Eosinophils % 0.8 %; Hematocrit 47.1 % (42.0-52.0); Hemoglobin 15.7 g/dL (11.7-16.6); Lymphocytes # 3.1 10^3/uL (0.8-4.8); Lymphocytes % 25.7 %; Mean Corpuscular HGB Conc 33.3 g/dL (30.0-36.0); Mean Corpuscular Hemoglobin 31.1 pg (28.0-34.0); Mean Corpuscular Volume 93.3 fL (80-94); Mean Platelet Volume 10.8 fL (7.4-10.4); Monocytes # 1.2 10^3/uL (0.2-0.9); Monocytes % 10.4 %; Neutrophils # 7.49 10^3/uL (1.8-7.7); Neutrophils % 62.5 %; Nucleated Red Blood Cells % 0 %; Platelet Count 233 10^3/cmm (130-400); Red Blood Count 5.05 10^6/uL (4.1-5.3); Red Cell Distribution Width 13.4 % (12.1-15.1)
[2021-05-11 17:01] LABS: ABG PCO2 31.8 mmHg (35-45); ABG PH Result 7.37 (7.35-7.45); Alveolar-Arterial Oxygen Gradi 4.7 mmHg (5-10); Arterial Blood Gas Hematocrit 43.8 % (42-52); Base Excess ABG -5.9 mmol/L (-2.0-2.0); Blood Gas Allen Test Pos; Blood Gas Operator Identificat AMH; Blood Gas Sample Site Radial, right; Blood Gas Sample Type Arterial; Carboxyhemoglobin 0.6 %THgb (0.4-20.1); HCO3 ABG 18.3 mmol/L (22-26); Ionized Calcium Level - ABG 1.3 mmol/L (1.1-1.4); Methemoglobin 1.2 % (0.4-1.5); Oxygen Device ROOM AIR; Oxygen Saturation ABG 94.7; PO2 ABG 73.7 mmHg (80.0-100.0); Potassium Level - ABG 4.1 mmol/L (3.5-5.0); Total Hemoglobin 14.3 g/dL (14-18)
--- NOTE | 2021-05-11 18:20 | ECG_ITS ---
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 Measurements Intervals [place] Rate: 65 P: 70 [place]: 165 QRS: 45 QRSD: 100 T: 47 QT: 401 QTc: 418 Interpretive Statements SINUS RHYTHM Compared to ECG 12/01/2020 15:24:46 No significant changes Electronically Signed On 05-12-2021 17:47:51 CDT by Ade Woo M.D. [id number]
[2021-05-11 18:38] LABS: Troponin(5th) Baseline 21 ng/L (0-15)
[2021-05-11 18:41] LABS: Alanine Aminotransferase 15 U/L (0-41); Albumin Level 4.3 g/dL (3.5-5.2); Alkaline Phosphatase 71 IU/L (40-130); Anion Gap 19.2 (5-19); Aspartate Amino Transferase 13 U/L (0-40); Blood Urea Nitrogen 57 mg/dL (6-20); Calcium 8.8 mg/dL (8.5-10.5); Carbon Dioxide 21 mmol/L (22-29); Chloride 101 mmol/L (98-107); Globulin 2.8 g/dL (1.3-4.6); Glomerular Filtration Rate 10.4 mL/min (90-130); Glucose 98 mg/dL (65-115); Osmolality Calculated 300 mOsm/kg (285-295); Potassium 4.2 mmol/L (3.5-5.1); Sodium 137 mmol/L (136-145); Total Bilirubin 0.2 mg/dL (0.15-1.2); Total Protein 7.1 g/dL (6.6-8.7)
[2021-05-11] MEDS: sodium chloride 0.9% 1,000 ML 250 ML IV (19:02)
--- NOTE | 2021-05-11 19:03 | PC.NURSE ---
verbal order per Dr Posadas to initiate this bag of fluids at 250/hr not 999.
[2021-05-11 20:02] LABS: Add Urine Microscopic? YES; Bacteria Urine 2+ /hpf; Bilirubin Urine 1+ (Negative); Blood Urine 2+ (Negative); Glucose Urine UA Norm (Normal); Ketones Urine 1+ (Negative); Leukocyte Esterase Urine Trace (Negative); Nitrate Urine Negative (Negative); Protein Urine 2+ (Negative); RBC Urine 0-4 /hpf (0-2); Specific Gravity, Urine 1.025 (1.005-1.030); Squamous Epithelial Cell Urine 0-4 /hpf (0-5); Urine Appearance Cloudy (CLEAR); Urine Color Yellow (Yellow); Urobilinogen Urine 1 mg/dL (Negative); pH Urine 5 (5-7)
[2021-05-11 20:03] LABS: Add Urine Culture? Yes; Amorphous Sediment Urine 3+ /hpf; Mucus Urine 1+ /hpf
[2021-05-11 20:21] LABS: Troponin 5 2HR 13.98 ng/L (0-15)
[2021-05-11 20:37] LABS: Troponin 5 2HR Delta -7.02 ABS# (0-10)
[2021-05-11 21:03] LABS: Glucose Point of Care 95 mg/dL (70-110)
--- NOTE | 2021-05-11 22:20 | ECG_ITS ---
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 Measurements Intervals [place] Rate: 61 P: 69 [place]: 169 QRS: 46 QRSD: 100 T: 52 QT: 406 QTc: 411 Interpretive Statements SINUS RHYTHM Compared to ECG 05/11/2021 18:09:44 No significant changes Electronically Signed On 05-12-2021 17:49:15 CDT by Ade Woo M.D. [id number]
--- NOTE | 2021-05-11 23:28 | PM.HP ---
Providers/Chief Complaint Admitting Physician: Radha Gutierrez Primary Care Provider: Yessy Marks MD Chief Complaint: OVER HEATED/ NAUSEA History of Present Illness 50-year-old male with a past medical history significant for hypertension, diabetes, pulmonary embolism on Xarelto who presented to hospital with a syncopal event.In addition to this patient was complaining of shortness of breath as well. He stated that he was out in the heat working during which time he became diaphoretic, lightheaded and dizzy. After returning inside symptoms continue to persist throughout the day. He was able to tolerate some oral intake. Continued to have shortness of breath at rest but primarily with exertion. Denies any documented fevers however noted chills. Denied chest pain. No abdominal pain, diarrhea or constipation. Upon arrival to hospital initial laboratory workup showed a WBC of 12.0, hemoglobin of 15.7, hematocrit of 47.1 and a platelet count of 233. Arterial blood gas showed a pH of 7.37, pCO2 73.7, bicarb of 18.3. Sodium 137, potassium 4.2, chloride 101, bicarb 21, BUN 57 and creatinine of 5.8. Troponin T delta of neg 7.02. Urinalysis showed 1+ ketones, 2+ blood negative nitrite, trace leukocyte esterase and 2+ bacteria. Upon arrival to ER patient was noted to have a BP of 90/52, which was responsive to fluid resuscitation as BP improved to 152/82. Review of Systems General: Reports: 10 or more systems reviewed and unremarkable except in HPI and below Medications/Allergies Home Medications Medication Instructions Recorded Confirmed Last Taken Type Vitamin C 1 tab PO DAILY@52912/01/20 05/11/21 05/11/21 History Vitamin D3 1 tab PO DAILY@52912/01/20 05/11/21 05/11/21 History lisinopril 40 mg PO DAILY@52912/01/20 05/11/21 05/11/21 History mirtazapine 30 mg PO DAILY@199912/01/20 05/11/21 05/10/21 History rivaroxaban 20 mg PO DAILY@199912/01/20 05/11/21 05/10/21 History vitamin E 1 tab PO DAILY@52912/01/20 05/11/21 05/11/21 History testosterone 20.25 mg/1.25 gram 1 pump TOPICAL DAILY@52912/31/20 05/11/21 05/11/21 History (1.62 %) transdermal gel pump sertraline 100 mg tablet 200 mg PO DAILY@529 tab 01/26/21 05/11/21 05/11/21 History atorvastatin 80 mg tablet 80 mg PO DAILY@52904/10/21 05/11/21 Unknown History metformin 500 mg tablet 500 mg PO BID@529,199904/10/21 05/11/21 05/11/21 History naproxen sodium [Aleve] 220 mg PO Q6H PRN 05/11/21 05/11/21 05/11/21 History Allergies Allergy/AdvReac Type Severity Reaction Status Date / Time No Known Allergies Allergy Verified 04/09/21 11:48 PFSH Acute PFSH: Medical History Diabetes 1.5, managed as type 2 Hyperlipidemia Hypertension Pulmonary embolism Surgical History H/O hernia repair Family History Grandfather Stroke CAD (coronary artery disease) Father Cancer Social History Smoking and tobacco status: never smoked Alcohol intake: current Alcohol intake frequency: 0-2 Drinks per Day Alcohol type: hard liquor Desire information about alcohol rehabilitation?: No Counseling given: No Vitals/I&O/Wt Last Vital Signs Temp 97.9 F 05/11/21 22:55 Pulse 96 05/11/21 22:55 Resp 18 05/11/21 22:55 BP 152/82 05/11/21 22:55 Pulse Ox 94 05/11/21 22:55 05/11/21 05/11/21 05/12/21 14:59 22:59 06:59 Intake Total 1999 1000 / 3000 Balance 1999 1000 / 3000 Weight last 48 hrs Weight 136.078 kg Physical Exam Narrative: EXAM NARRATIVE: General -alert awake and oriented x3 HEENT -grossly unremarkable CVS -regular rate rhythm no obvious murmurs Chest -clear to auscultation bilaterally Abdomen-soft nontender non distended Extremities-no edema Data : 05/11/21 16:10 05/11/21 17:52 A&P Assessment and plan (1) Heatstroke: Status: Acute (2) Dehydration, severe: Status: Acute (3) Acute renal failure: Status: Acute (4) Generalized weakness: Status: Acute (5) Hypotension: Status: Acute (6) Diabetes 1.5, managed as type 2: Status: Acute (7) Pulmonary embolism: Status: Acute (8) Hypertension: Status: Acute (9) Hyperlipidemia: Status: Acute Acute respiratory distress Will obtain chest x-ray Supplemental oxygen as needed Further work up pending xray Acute renal failure Creatinine5.8 Likely prerenal Continue IV fluids Repeat BMP in a.m. Monitor urine output Renally dose medications Hold lisinopril Henley ordered Elevated troponin Trend not consistent with ACS Recent Cardiac Cath - 03/2021 - No evidence of CAD Likely due to renal failure No further work up Diabetes mellitus Sliding scale insulin Q a.c. HS checks Diabetic diet History of pulmonary embolism Continue Xarelto however decreased dose to 15 mg daily Hyperlipidemia Continue lipitor 80 mg daily Depression Zoloft 200 mg PO daily DVT ppx Xarelto 15 mg PO daily Attestations Medical Necessity Statement*: AnticipateLess than 2 midnight stay in hospital for evaluation and treatment Time Spent in Patient Care: Greater than 35 minutes (>than 50% of time spent in counselling and/or direct pt care on unit). Coding Level of Care Code Acute Merchandising Intern for g Fwd Diagnoses Heatstroke T67.01XA Dehydration, severe E86.0 Acute renal failure N17.9 Generalized weakness R53.1 Hypotension I95.9 Diabetes 1.5, managed as type 2 E13.9 Pulmonary embolism I26.99 Hypertension I10 Hyperlipidemia E78.5
[2021-05-11] MEDS: sodium chloride 0.9% 1,000 ML 75 ML IV (23:59)
[2021-05-12] VITALS (7 sets, daily range): BP systolic 99–114; BP diastolic 57–74; PULSE 56–78; RESP 14–18; TEMP 36.4–36.8; O2SAT 94–98
[2021-05-12 00:04] LABS: Troponin 5 6HR 14.49 ng/L (0-15)
[2021-05-12 00:05] LABS: Troponin 5 6HR Delta -6.51 ng/L (0-12)
[2021-05-12] MEDS: sertraline 100 mg Tablet 200 MG PO (05:07)
[2021-05-12] MEDS: atorvastatin 40 mg Tablet 80 MG PO (05:07)
--- NOTE | 2021-05-12 05:17 | XRR_ITS ---
PROCEDURE INFORMATION: Exam: XR Chest Exam date and time: 05/12/2021 5:17 AM Age: 50 years old Clinical indication: Shortness of breath; Patient HX: SOB. ; Additional info: Respiratory distress TECHNIQUE: Imaging protocol: XR of the chest. Views: 1 view. COMPARISON: CR Chest 1 [place] [id number] 05/21/2018 10:46 AM FINDINGS: Lungs: There are low lung volumes. Otherwise, the lungs are clear. Pleural spaces: Unremarkable. No pleural effusion. No pneumothorax. Heart/Mediastinum: Unremarkable. No cardiomegaly. Bones/joints: Unremarkable. XR/XR chest 1V portable [id number] IMPRESSION: There are low lung volumes. Otherwise, the lungs are clear.
[2021-05-12] MEDS: ondansetron 2 mg/ML SDV 2 mL 4 MG IVP (05:52)
[2021-05-12 06:30] LABS: Glucose Point of Care 113 mg/dL (70-110)
[2021-05-12 06:31] LABS: Basophils # 0.1 10^3/uL (0.0-0.1); Basophils % 0.6 %; Eosinophils # 0.3 10^3/uL (0.0-0.8); Eosinophils % 2.6 %; Hematocrit 43.5 % (42.0-52.0); Hemoglobin 13.7 g/dL (11.7-16.6); Lymphocytes # 2.3 10^3/uL (0.8-4.8); Lymphocytes % 23.6 %; Mean Corpuscular HGB Conc 31.5 g/dL (30.0-36.0); Mean Corpuscular Hemoglobin 30.9 pg (28.0-34.0); Mean Platelet Volume 10.7 fL (7.4-10.4); Monocytes % 9.9 %; Neutrophils # 6.26 10^3/uL (1.8-7.7); Nucleated Red Blood Cells % 0 %; Platelet Count 183 10^3/cmm (130-400); Red Blood Count 4.44 10^6/uL (4.1-5.3); Red Cell Distribution Width 13.7 % (12.1-15.1); White Blood Count 9.9 10^3/uL (4.0-10.0)
[2021-05-12 06:57] LABS: Alanine Aminotransferase 15 U/L (0-41); Albumin Level 4.2 g/dL (3.5-5.2); Alkaline Phosphatase 75 IU/L (40-130); Anion Gap 14.2 (5-19); Aspartate Amino Transferase 13 U/L (0-40); Blood Urea Nitrogen 56 mg/dL (6-20); Calcium 9.1 mg/dL (8.5-10.5); Carbon Dioxide 24 mmol/L (22-29); Chloride 105 mmol/L (98-107); Globulin 2.7 g/dL (1.3-4.6); Glomerular Filtration Rate 17.5 mL/min (90-130); Glucose 114 mg/dL (65-115); Magnesium 2.9 mg/dL (1.7-2.3); Osmolality Calculated 302 mOsm/kg (285-295); Potassium 5.2 mmol/L (3.5-5.1); Sodium 138 mmol/L (136-145); Total Bilirubin 0.3 mg/dL (0.15-1.2); Total Protein 6.9 g/dL (6.6-8.7)
[2021-05-12] MEDS: rivaroxaban 10 mg Tablet 15 MG PO (08:17)
--- NOTE | 2021-05-12 09:36 | CT_ITS ---
WS: [id number] CT ABDOMEN PELVIS TECHNIQUE: Noncontrast CT of the abdomen and pelvis with coronal and sagittal reformatted images. CLINICAL INFORMATION: ACUTE RENAL FALIURE COMPARISON: CT December 17, 2019 DLP: 2195.[address] scans at [facility] use at least one of these dose optimization techniques: automat ed exposure control; mA and/or kV adjustment per patient size (includes targeted exams where dose is matched to clinical indication); or iterative reconstruction. FINDINGS: Lung bases are well aerated. Noncontrast liver is normal. Normal GE junction. Noncontrast spleen is n ormal. Normal noncontrast pancreas. Adrenal glands are normal. Mild bilateral perinephric edema can b e seen with renal insufficiency. No hydronephrosis. Both ureters appear decompressed. Henley catheter in place. Bladder is decompressed. Normal GE junction. Normal caliber abdominal aorta. No free fluid in the pelvis. No evidence of small or large bowel obst ruction. Incidental fat-containing right inguinal hernia. CT/CT abdomen pelvis wo con [id number] IMPRESSION: 1. No hydronephrosis in either kidney. Mild bilateral perinephric edema can be seen with renal insufficiency. 2. Henley catheter in place. Bladder is decompressed. 3. No free fluid in the pelvis. 4. No evidence of small or large bowel obstruction. 5. No other significant findings.
[2021-05-12 10:26] LABS: Chol HDL Ratio 5.74 mg/dL (1.0-5.00); Cholesterol 218 mg/dL (0-200); HDL Cholesterol 38 mg/dL (60-100); LDL Cholesterol Calculated 111 mg/dL (50-129); Triglycerides 344 mg/dL (0-150); VLDL Cholestrol Calculation 69 mg/dL (0-30)
[2021-05-12 10:32] LABS: Glucose Point of Care 115 mg/dL (70-110)
--- NOTE | 2021-05-12 10:41 | PC.CHAP ---
Pastoral Care Encounter/Spiritual Assessment Type of Contact [] Declined shoe laster visit [] Patient/Family/Request visit [] Outpatient visit [] Follow-up visit [] Physician referral [] Code/Alert [x] Routine visit [] Staff referral [] Actively dying [] Patient sleeping [] Family support [] [] Out of room [] Palliative care [] [] Receiving care in room [] Pre-surgical visit [] Trauma [] Long length of stay [] ICU visit [] Other: Relational/Emotional Strength [x] Patient feels connected with others/family/visitors/staff [] Distress [] Loneliness/isolation [] Abandonment Spirituality of Patient [x] Person of Letha [x] Attends Scientology of their Letha [x] Believes in Prayer [] Reads Bible or Anabaptist materials [] There are Spiritual issues to be addressed Assembler Lay Ups Interventions [x] Prayer [] Active listening [x] Non-anxious presence [x] Spiritual/emotional support [] Crisis/trauma care [] Spiritual counseling [] Bereavement support [] Provided bereavement packet [] Provided Bible/devotional materials [] Provided toy/stuffed animal, coloring book to patient or family member [] Provided Communion [] Anointing/[place] [] Salvation x[x] Completed spiritual assessment [] Other: Impact on Illness or Injury [] Angry [] Fearful [] Anxious [] Often cries [] Exhaustion [] Unable to work [] Unable to attend adventism [] Unable to walk/stand [] Unable to read [] Unable to drive [] Unable to eat/drink [] Unable to sleep [] Unable to be with family [] Patient intubated [] Other: Summary Time spent with patient 10 min
[2021-05-12 10:49] LABS: Iron 64 ug/dL (59-158); Percent Saturation 23.1 % (20-50); Total Iron Binding Capacity 277 mcg/dl; Unsaturated Iron Binding 213 ug/dL (112-347)
[2021-05-12 11:31] LABS: Estmated Average Glucose 123; Hemoglobin A1C 5.9 % (4.0-6.0)
--- NOTE | 2021-05-12 12:37 | PM.PN ---
Subjective Subjective: Interval history: Current overnight. Labs and H&P appreciated. On examination lying comfortably in bed while having echocardiogram. Denies any nausea vomiting, headache. Denies any abdominal pain, chest pain, difficulty in breathing. He is currently on normal saline 75 cc an hour. Wondering if the Henley catheter can be taken out. Vitals/I&O/Wt Last Vital Signs Temp 98.0 F 05/12/21 12:00 Pulse 76 05/12/21 12:00 Resp 17 05/12/21 12:00 BP 109/68 05/12/21 12:00 Pulse Ox 94 05/12/21 12:00 05/11/21 05/12/21 05/12/21 22:59 06:59 14:59 Intake Total 1999 1200 / 3200 240 / 240 Output Total 300 / 300 550 / 550 Balance 1999 900 / 2900 -310 / -310 Weight last 48 hrs Weight 139.979 kg Weight 136.078 kg Physical Exam Narrative: EXAM NARRATIVE: General: No acute distress, AO x3 HEENT: PERRLA, pupils bilaterally equal and reactive Chest: Normal vesicular breath sounds, no added sounds, equal good air entry bilaterally CVS: S1-S2 regular, no murmurs, no tachycardia, no gallops, no rubs Abdomen: Soft, nontender, no organomegaly, bowel sounds present, obese Neuro: No focal deficits, no facial deformity, AO x3, power 5/5 in all limbs Urinary Catheter Management^: Henley: Cath Placed During This Visit: yes Reason for Continuing Indwelling Catheter: Accurate Measurement of Urinary Output in Critically Ill Patients Urinary Catheter Date of Insertion: 05/12/21 Urinary Catheter Time of Insertion: 00:18 Data : 05/12/21 06:05 05/12/21 06:05 A&P Assessment and plan (1) Acute renal failure: Status: Acute (2) Generalized weakness: Status: Acute (3) Diabetes 1.5, managed as type 2: Status: Acute (4) Pulmonary embolism: Status: Chronic (5) Hypertension: Status: Acute (6) Hyperlipidemia: Status: Acute (7) Hypotension: Status: Acute (8) Heatstroke: Status: Acute (9) Dehydration, severe: Status: Acute Additional A&P Information Acute kidney injury: Etiology is multifactorial. Most likely a combination of contrast-induced nephropathy from recent cardiac catheterization last month on baseline diabetic nephropathy getting exacerbated by home dose of lisinopril and Metformin. Creatinine better today. Continue with normal saline 100 cc/h. Medical reconciliation done for nephrotoxic drugs. For now hold off on lisinopril and Metformin. Will decrease the dose of Xarelto. Check urine creatinine, urine eosinophils, urine lites to the urine sample from yesterday. Strict input output charting. CT abdomen pelvis to rule out obstructive uropathy. If negative can DC Henley catheter. Diabetes mellitus: A1c 5.9 Stop OHAs. ISS at mild dose protocol. Hypertension: Goal blood pressure less than 140/90 mmHg. Plan hold off on lisinopril. Continue to monitor blood pressures if needed can add amlodipine. Elevated troponin: Most likely secondary to SOHAN. Recent cardiac catheterization from April 16 shows nonobstructive CAD. History of thromboembolism: On room air. Oxygen limitation keeping saturation of 92% if needed. Continue with Xarelto but a lower dose of 50 mg daily. Continue chronic medications. Check iron panel, TSH, lipid panel, HbA1c. Renal nondialysis carb consistent diet. Xarelto will help with DVT prophylaxis. Famotidine for PUD prophylaxis Attestations Medical Necessity Statement*: Philip Carroll is being changed to inpatient status as stay will now exceed 2 midnights. Ongoing hospital care is necessary for acute renal failure requiring IV fluids and strict input output charting Time Spent in Patient Care: Greater than 35 minutes (>than 50% of time spent in counselling and/or direct pt care on unit). Coding Level of Care Code Acute Solar Designer/Installer for g Fwd Diagnoses Acute renal failure N17.9 Generalized weakness R53.1 Diabetes 1.5, managed as type 2 E13.9 Pulmonary embolism I26.99 Hypertension I10 Hyperlipidemia E78.5 Hypotension I95.9 Heatstroke T67.01XA Dehydration, severe E86.0
[2021-05-12 13:11] LABS: Potassium, Radom Urine 44 mmol/L; Urine Creatinine 370 mg/dL (39-259); Urine Random Chloride 21 mmol/L; Urine Random Sodium 60 mmol/L
[2021-05-12 13:16] LABS: Creatinine Urine, Random 368 mg/dL (39-259)
[2021-05-12 13:29] LABS: Microalbum Creatinine Ratio Ur 182 mg/dL (0-20); Microalbumin Random Urine 67 ug/dL (0-20)
[2021-05-12 13:31] LABS: Eosinophil Urine No Eosinophils Seen; Urine Eosinophil Count 0 (0-0)
--- NOTE | 2021-05-12 14:00 | PC.NURSE ---
Henley catheter removed at this time. Patient tolerated well.
[2021-05-12] MEDS: sodium chloride 0.9% 1,000 ML 75 ML IV (14:55)
--- NOTE | 2021-05-12 17:03 | PC.NURSE ---
Report to Lolis VICTORIA at this time.
[2021-05-12 17:11] LABS: Glucose Point of Care 104 mg/dL (70-110)
[2021-05-12 21:15] LABS: Glucose Point of Care 132 mg/dL (70-110)
--- NOTE | 2021-05-12 23:27 | USCV_ITS ---
Philip Carroll Age: 50 Gender: M : 1970 Exam Date: 05/12/2021 09:48 Ordering Phys: Radha Gutierrez MD Technologist: [place] [facility] [place]: [place] BP: 114 / 76 HR: 69 Rhythm: Sinus Technical Quality: Adequate MEASUREMENTS (Male / Female) Normal Values 2D ECHO LV Diastolic Diameter PLAX 4.2 cm 4.2 - 5.9 / 3.9 - 5.3 cm LV Systolic Diameter PLAX 2.3 cm IVS Diastolic Thickness 0.9 cm 0.6 - 1.0 / 0.6 - 0.9 cm IVS Systolic Thickness 1.6 cm LVPW Diastolic Thickness 1.3 cm 0.6 - 1.0 / 0.6 - 0.9 cm LVPW Systolic Thickness 1.5 cm LVOT Diameter 2.0 cm LV Ejection Fraction 2D Teich 76.3 % LV Ejection Fraction MOD 2C 58.2 % LV Ejection Fraction 2C AL 57.4 % LA Diameter 3.6 cm DOPPLER AV Peak Velocity 125.0 cm/s LVOT Peak Velocity 108.0 cm/s AV Area Cont Eq vti 3.0 cm squared AV Area Cont Eq pk 2.7 cm squared MV Area PHT 2.9 cm squared Mitral E to A Ratio 1.1 MV E' Velocity 48.5 cm/s Mitral E to MV E' Ratio 9.8 Mitral E to LV E' Lateral Ratio 7.9 Mitral E to LV E' Septal Ratio 13.0 TR Peak Velocity 137.3 cm/s TR Peak Gradient 7.5 mmHg TV Peak E Velocity 94.0 cm/s Right Atrial Pressure 3.0 mmHg Pulmonary Artery Systolic Pressu 10.5 mmHg PV Peak Velocity 72.0 cm/s FINDINGS Left Ventricle Normal left ventricular size. LV systolic function is normal with EF of 50-55%. No regional wall motion abnormalities. Normal diastolic filling pattern. Right Ventricle The right ventricle is normal in size and function. Right Atrium The right atrium is normal in size. Left Atrium The left atrium is normal in size. Mitral Valve Structurally normal mitral valve without significant stenosis or prolapse. There is no mitral regurgitation. Aortic Valve Structurally normal aortic valve without significant sclerosis or stenosis. There is no aortic regurgitation. Tricuspid Valve Structurally normal tricuspid valve without significant stenosis or regurgitation. Insufficient TR jet to calculate RVSP Pulmonic Valve Structurally normal pulmonic valve without significant stenosis. There is no pulmonic regurgitation. Pericardium Normal pericardium without effusion. Aorta Normal ascending aorta dimension. CONCLUSIONS LV systolic function is normal with EF of 50-55% Diastolic function is normal No significant valvular heart disease No comparison studies are available Osman Wilson MD (Electronically Signed) Final Date: 12 May 2021 22:13 S
--- NOTE | 2021-05-12 23:28 | US_ITS ---
WS: [id number] ULTRASOUND RENAL TECHNIQUE: Ultrasound examination of both kidneys. CLINICAL INFORMATION: kidney injury COMPARISON: None. FINDINGS: RIGHT: Right kidney is normal in size and appearance. Echogenicity: Normal. Cortical thickness: cm; Normal. Hydronephrosis: None. Perinephric fluid: None. Right kidney measures: 12.6 cm x 6.0 cm x 5.8 cm. LEFT: Left kidney is normal in size and appearance. Echogenicity: Normal. Cortical thickness: cm; Normal. Hydronephrosis: None. Perinephric fluid: None. Left kidney measures: 11.4 cm x 6.7 cm x 8.2 cm. Normal visualized aorta. US/US renal BI* [id number] IMPRESSION: Normal renal ultrasound
[2021-05-13] VITALS: BP 100/52; PULSE 59; RESP 16; TEMP 36.5; O2SAT 96
[2021-05-13 03:51] VITALS: BP 95/59; PULSE 66; RESP 16; TEMP 36.6; O2SAT 97
[2021-05-13] MEDS: sodium chloride 0.9% 1,000 ML 75 ML IV (04:16)
[2021-05-13] MEDS: atorvastatin 40 mg Tablet 80 MG PO (05:26)
[2021-05-13] MEDS: sertraline 100 mg Tablet 200 MG PO (05:26)
--- NOTE | 2021-05-13 05:54 | PC.NURSE ---
SHIFT SUMMARY Has rested well tonight without c/o or distress. Is hoping to go home soon. IV infusing without difficulty at 75ml/hr rate. Voiding per urinal.
[2021-05-13 06:00] VITALS: PULSE 80
[2021-05-13 06:11] LABS: Ferritin 5 ng/mL (30-400)
[2021-05-13 06:12] LABS: Alanine Aminotransferase 13 U/L (0-41); Albumin Level 3.8 g/dL (3.5-5.2); Alkaline Phosphatase 66 IU/L (40-130); Anion Gap 12.9 (5-19); Aspartate Amino Transferase 11 U/L (0-40); Blood Urea Nitrogen 40 mg/dL (6-20); Calcium 8.4 mg/dL (8.5-10.5); Carbon Dioxide 23 mmol/L (22-29); Chloride 108 mmol/L (98-107); Globulin 2.6 g/dL (1.3-4.6); Glucose 101 mg/dL (65-115); Osmolality Calculated 298 mOsm/kg (285-295); Potassium 4.9 mmol/L (3.5-5.1); Sodium 139 mmol/L (136-145); Total Bilirubin 0.3 mg/dL (0.15-1.2); Total Protein 6.4 g/dL (6.6-8.7)
[2021-05-13 06:17] LABS: Glucose Point of Care 97 mg/dL (70-110)
[2021-05-13 08:00] VITALS: BP 116/64; PULSE 62; RESP 17; TEMP 36.3; O2SAT 97
[2021-05-13] MEDS: rivaroxaban 10 mg Tablet 15 MG PO (08:02)
--- NOTE | 2021-05-13 09:52 | PM.DCS ---
Discharge Providers Date of Admission: 05/12/21 09:38 Date of Discharge: May 13, 2021 Attending Provider at Admission: Radha Gutierrez Attending Provider at Discharge: Daniel Jain MD Primary Care Provider: Yessy Marks MD Diagnoses at Discharge Discharge Diagnosis (1) Acute renal failure: Status: Acute (2) Generalized weakness: Status: Acute (3) Diabetes 1.5, managed as type 2: Status: Acute (4) Pulmonary embolism: Status: Chronic (5) Hypertension: Status: Acute (6) Hyperlipidemia: Status: Acute (7) Hypotension: Status: Acute (8) Heatstroke: Status: Acute (9) Dehydration, severe: Status: Acute Reason for Visit Reason for Visit: OVER HEATED/ NAUSEA Hospital Course Hospital Course 50-year-old male with a past medical history significant for hypertension, diabetes, pulmonary embolism on Xarelto who presented to hospital with a syncopal event.In addition to this patient was complaining of shortness of breath as well. He stated that he was out in the heat working during which time he became diaphoretic, lightheaded and dizzy. After returning inside symptoms continue to persist throughout the day. He was able to tolerate some oral intake. Continued to have shortness of breath at rest but primarily with exertion. Denies any documented fevers however noted chills. Denied chest pain. No abdominal pain, diarrhea or constipation. Upon arrival to hospital initial laboratory workup showed a WBC of 12.0, hemoglobin of 15.7, hematocrit of 47.1 and a platelet count of 233. Arterial blood gas showed a pH of 7.37, pCO2 73.7, bicarb of 18.3. Sodium 137, potassium 4.2, chloride 101, bicarb 21, BUN 57 and creatinine of 5.8. Troponin T delta of neg 7.02. Urinalysis showed 1+ ketones, 2+ blood negative nitrite, trace leukocyte esterase and 2+ bacteria. Upon arrival to ER patient was noted to have a BP of 90/52, which was responsive to fluid resuscitation as BP improved to 152/82. Patient admitted to the hospital for further management of acute renal failure. He was started on IV resuscitation. It is believed his SOHAN is most likely secondary to some degree of contrast-induced nephropathy because of the recent cardiac angiography on top of diabetes nephropathy along with competently use of lisinopril and Metformin along with dehydration. He responded well to the treatment and his kidney functions improved with creatinine being 1.6 on the day of discharge. His hospitalization was otherwise unremarkable. He has been discharged hemodynamically stable condition after medical reconciliation has been done for nephrotoxic drugs. He is to follow-up with his primary care provider early next week for repeat BMP. Physical Exam Narrative: EXAM NARRATIVE: General: No acute distress, AO x3 HEENT: PERRLA, pupils bilaterally equal and reactive Chest: Normal vesicular breath sounds, no added sounds, equal good air entry bilaterally CVS: S1-S2 regular, no murmurs, no tachycardia, no gallops, no rubs Abdomen: Soft, nontender, no organomegaly, bowel sounds present, obese Neuro: No focal deficits, no facial deformity, AO x3, power 5/5 in all limbs Urinary Catheter Management^: Henley: Cath Placed During This Visit: yes, but has since been removed by the nurse Reason for Continuing Indwelling Catheter: Decision to DC Catheter Urinary Catheter Date of Insertion: 05/12/21 Urinary Catheter Time of Insertion: 00:18 Date Urinary Catheter Removed: 05/12/21 Time Urinary Catheter Discontinued: 14:00 Discharge Data Data Completed and Pending: Completed Studies During Hospitalization Category Date Time Status CT abdomen pelvis wo con [id number] Rout ine Cat Scan 05/12/21 09:36 Completed XR chest 1V lynette ble [id number] Stat Exams 05/12/21 05:17 Completed CV echo wo/w cont rast [id number] Routine Ultrasound 05/12/21 23:27 Completed US renal BI* [id number] Routine Ultrasound 05/12/21 23:28 Completed Pending at discharge Category Date Time Status Urine Culture Sta t Lab 05/11/21 18:55 Results Labs from last 24 hours 05/13/21 05/13/21 05/13/21 06:14 05:40 05:40 Sodium 139 Potassium 4.9 Chloride 108 H Carbon Dioxide 23 Anion Gap 12.9 BUN 40 H Creatinine 1.6 H GFR Calculation 46.0 L Glucose 101 POC Glucose 97 Estimat Average Gl ucose Hemoglobin A1c Calculated Osmolal ity 298 H Calcium 8.4 L Iron TIBC % Saturation Unsat Iron Binding Ferritin 5 L Total Bilirubin 0.3 AST 11 ALT 13 Alkaline Phosphata se 66 Total Protein 6.4 L Albumin 3.8 Globulin 2.6 Triglycerides Cholesterol LDL Cholesterol, C alc Total VLDL Cholest flavio HDL Cholesterol Cholesterol/HDL Ra shannon TSH Ur Eosinophil Smea r Urine Eosinophils Ur Random Microalb umin Ur Random Sodium Ur Random Potassiu m Ur Random Chloride Urine Creatinine Microalb/Creat Rat io 05/12/21 05/12/21 05/12/21 21:13 16:49 10:23 Sodium Potassium Chloride Carbon Dioxide Anion Gap BUN Creatinine GFR Calculation Glucose POC Glucose 132 H 104 115 H Estimat Average Gl ucose Hemoglobin A1c Calculated Osmolal ity Calcium Iron TIBC % Saturation Unsat Iron Binding Ferritin Total Bilirubin AST ALT Alkaline Phosphata se Total Protein Albumin Globulin Triglycerides Cholesterol LDL Cholesterol, C alc Total VLDL Cholest flavio HDL Cholesterol Cholesterol/HDL Ra shannon TSH Ur Eosinophil Smea r Urine Eosinophils Ur Random Microalb umin Ur Random Sodium Ur Random Potassiu m Ur Random Chloride Urine Creatinine Microalb/Creat Rat io 05/12/21 05/12/21 05/12/21 06:05 06:05 06:05 Sodium Potassium Chloride Carbon Dioxide Anion Gap BUN Creatinine GFR Calculation Glucose POC Glucose Estimat Average Gl ucose 123 Hemoglobin A1c 5.9 Calculated Osmolal ity Calcium Iron 64 TIBC 277 % Saturation 23.1 Unsat Iron Binding 213 Ferritin Total Bilirubin AST ALT Alkaline Phosphata se Total Protein Albumin Globulin Triglycerides 344 H Cholesterol 218 H LDL Cholesterol, C alc 111 Total VLDL Cholest flavio 69 H HDL Cholesterol 38 L Cholesterol/HDL Ra shannon 5.74 H TSH 0.80 Ur Eosinophil Smea r Urine Eosinophils Ur Random Microalb umin Ur Random Sodium Ur Random Potassiu m Ur Random Chloride Urine Creatinine Microalb/Creat Rat io 05/11/21 05/11/21 18:57 18:57 Sodium Potassium Chloride Carbon Dioxide Anion Gap BUN Creatinine GFR Calculation Glucose POC Glucose Estimat Average Gl ucose Hemoglobin A1c Calculated Osmolal ity Calcium Iron TIBC % Saturation Unsat Iron Binding Ferritin Total Bilirubin AST ALT Alkaline Phosphata se Total Protein Albumin Globulin Triglycerides Cholesterol LDL Cholesterol, C alc Total VLDL Cholest flavio HDL Cholesterol Cholesterol/HDL Ra shannon TSH Ur Eosinophil Smea r 0 Urine Eosinophils No eosinophils se en Ur Random Microalb umin 67 H Ur Random Sodium 60 Ur Random Potassiu m 44 Ur Random Chloride 21 Urine Creatinine 370 H 368 H Microalb/Creat Rat io 182 H Addt'l Data from Hospital Stay: Laboratory Results WBC 9.9 10^3/uL (4.0- 10.0) 05/12/21 06:05 RBC 4.44 10^6/uL (4.1 -5.3) 05/12/21 06:05 Hgb 13.7 g/dL (11.7-1 6.6) 05/12/21 06:05 Hct 43.5 % (42.0-52.0 ) 05/12/21 06:05 MCV 98.0 fL (80-94) H D 05/12/21 06:05 MCH 30.9 pg (28.0-34. 0) 05/12/21 06:05 MCHC 31.5 g/dL (30.0-3 6.0) D 05/12/21 06:05 RDW 13.7 % (12.1-15.1 ) 05/12/21 06:05 Plt Count 183 10^3/cmm (130 -400) 05/12/21 06:05 MPV 10.7 fL (7.4-10.4 ) H 05/12/21 06:05 Neut % (Auto) 63.0 % 05/12/21 06:05 Lymph % (Auto) 23.6 % 05/12/21 06:05 [place] % (Auto) 9.9 % 05/12/21 06:05 Eos % (Auto) 2.6 % 05/12/21 06:05 Baso % (Auto) 0.6 % 05/12/21 06:05 Neut # (Auto) 6.26 10^3/uL (1.8 -7.7) 05/12/21 06:05 Lymph # (Auto) 2.3 10^3/uL (0.8- 4.8) 05/12/21 06:05 [place] # (Auto) 1.0 10^3/uL (0.2- 0.9) H 05/12/21 06:05 Eos # (Auto) 0.3 10^3/uL (0.0- 0.8) 05/12/21 06:05 Baso # (Auto) 0.1 10^3/uL (0.0- 0.1) 05/12/21 06:05 Nucleated RBC % (a uto) 0 % 05/12/21 06:05 Nucleated RBCs # 0.0 /100WBC 05/12/21 06:05 Specimen Type Arterial 05/11/21 16:50 Sample Site Radial, right 05/11/21 16:50 ABG pH 7.37 (7.35-7.45) 05/11/21 16:50 ABG pCO2 31.8 mmHg (35-45) L 05/11/21 16:50 ABG pO2 73.7 mmHg (80.0-1 00.0) L 05/11/21 16:50 ABG HCO3 18.3 mmol/L (22-2 6) L 05/11/21 16:50 ABG O2 Saturation 94.7 05/11/21 16:50 ABG Base Excess -5.9 mmol/L (-2.0 -2.0) L 05/11/21 16:50 Chad Test Pos 05/11/21 16:50 A-a O2 Gradient 4.7 mmHg (5-10) L 05/11/21 16:50 Hematocrit 43.8 % (42-52) 05/11/21 16:50 Hgb O2 Saturation 93.0 % (95-100) L 05/11/21 16:50 Carboxyhemoglobin 0.6 %THgb (0.4-20 .1) 05/11/21 16:50 Methemoglobin 1.2 % (0.4-1.5) 05/11/21 16:50 Total Hemoglobin 14.3 g/dL (14-18) 05/11/21 16:50 Sodium 137.0 mmol/L (131 -143) 05/11/21 16:50 Potassium 4.1 mmol/L (3.5-5 .0) 05/11/21 16:50 Glucose 115.0 mg/dL (70-1 15) 05/11/21 16:50 Ionized Calcium 1.3 mmol/L (1.1-1 .4) 05/11/21 16:50 O2 Delivery Device Room air 05/11/21 16:50 FiO2 21.0 % 05/11/21 16:50 Caterpillar Operator ID Amh 05/11/21 16:50 Sodium 139 mmol/L (136-1 45) 05/13/21 05:40 Potassium 4.9 mmol/L (3.5-5 .1) 05/13/21 05:40 Chloride 108 mmol/L (98-10 7) H 05/13/21 05:40 Carbon Dioxide 23 mmol/L (22-29) 05/13/21 05:40 Anion Gap 12.9 (5-19) 05/13/21 05:40 BUN 40 mg/dL (6-20) H 05/13/21 05:40 Creatinine 1.6 mg/dL (0.7-1. 2) H 05/13/21 05:40 GFR Calculation 46.0 mL/min (90-1 30) L 05/13/21 05:40 Glucose 101 mg/dL (65-115 ) 05/13/21 05:40 POC Glucose 97 mg/dL (70-110) 05/13/21 06:14 Estimat Average Gl ucose 123 05/12/21 06:05 Hemoglobin A1c 5.9 % (4.0-6.0) 05/12/21 06:05 Calculated Osmolal ity 298 mOsm/kg (285- 295) H 05/13/21 05:40 Calcium 8.4 mg/dL (8.5-10 .5) L 05/13/21 05:40 Magnesium 2.9 mg/dL (1.7-2. 3) H 05/12/21 06:05 Iron 64 ug/dL (59-158) 05/12/21 06:05 TIBC 277 mcg/dl 05/12/21 06:05 % Saturation 23.1 % (20-50) 05/12/21 06:05 Unsat Iron Binding 213 ug/dL (112-34 7) 05/12/21 06:05 Ferritin 5 ng/mL (30-400) L 05/13/21 05:40 Total Bilirubin 0.3 mg/dL (0.15-1 .2) 05/13/21 05:40 AST 11 U/L (0-40) 05/13/21 05:40 ALT 13 U/L (0-41) 05/13/21 05:40 Alkaline Phosphata se 66 IU/L (40-130) 05/13/21 05:40 Troponin T Baselin e 21 ng/L (0-15) H 05/11/21 17:52 Troponin T 120 Min [place] 13.98 ng/L (0-15) 05/11/21 19:55 Delta Troponin T -7.02 ABS# (0-10) L 05/11/21 19:55 Troponin T Hi Sens 6Hr 14.49 ng/L (0-15) 05/11/21 23:41 Troponin T Hi Sens 6Hr Delta -6.51 ng/L (0-12) L 05/11/21 23:41 Total Protein 6.4 g/dL (6.6-8.7 ) L 05/13/21 05:40 Albumin 3.8 g/dL (3.5-5.2 ) 05/13/21 05:40 Globulin 2.6 g/dL (1.3-4.6 ) 05/13/21 05:40 Triglycerides 344 mg/dL (0-150) H 05/12/21 06:05 Cholesterol 218 mg/dL (0-200) H 05/12/21 06:05 LDL Cholesterol, C alc 111 mg/dL (50-129 ) 05/12/21 06:05 Total VLDL Cholest flavio 69 mg/dL (0-30) H 05/12/21 06:05 HDL Cholesterol 38 mg/dL (60-100) L 05/12/21 06:05 Cholesterol/HDL Ra shannon 5.74 mg/dL (1.0-5 .00) H 05/12/21 06:05 TSH 0.80 uIU/mL (0.27 -4.20) 05/12/21 06:05 Urine Color Yellow (Yellow) 05/11/21 18:55 Urine Appearance Cloudy (CLEAR) 05/11/21 18:55 Urine pH 5 (5-7) 05/11/21 18:55 Ur Specific Gravit y 1.025 (1.005-1.0 30) 05/11/21 18:55 Urine Protein 2+ (Negative) H 05/11/21 18:55 Urine Glucose (UA) Norm (Normal) 05/11/21 18:55 Urine Ketones 1+ (Negative) H 05/11/21 18:55 Urine Blood 2+ (Negative) H 05/11/21 18:55 Urine Nitrate Negative (Negati ve) 05/11/21 18:55 Urine Bilirubin 1+ (Negative) H 05/11/21 18:55 Urine Urobilinogen 1 mg/dL (Negative ) H 05/11/21 18:55 Ur Leukocyte Soumya ase Trace (Negative) H 05/11/21 18:55 Urine RBC 0-4 /hpf (0-2) H 05/11/21 18:55 Urine WBC 10-15 /hpf (0-5) H 05/11/21 18:55 Ur Eosinophil Smea r 0 (0-0) 05/11/21 18:57 Ur Squamous Epith Cells 0-4 /hpf (0-5) H 05/11/21 18:55 Amorphous Sediment 3+ /hpf 05/11/21 18:55 Urine Bacteria 2+ /hpf (NONE) H 05/11/21 18:55 Urine Mucus 1+ /hpf 05/11/21 18:55 Urine Eosinophils No eosinophils se en 05/11/21 18:57 Ur Random Microalb umin 67 ug/dL (0-20) H 05/11/21 18:57 Ur Random Sodium 60 mmol/L 05/11/21 18:57 Ur Random Potassiu m 44 mmol/L 05/11/21 18:57 Ur Random Chloride 21 mmol/L 05/11/21 18:57 Urine Creatinine 368 mg/dL (39-259 ) H 05/11/21 18:57 Urine Creatinine 370 mg/dL (39-259 ) H 05/11/21 18:57 Microalb/Creat Rat io 182 mg/dL (0-20) H 05/11/21 18:57 Impressions Chest X-Ray 05/12/21 05:17 IMPRESSION: There are low lung volumes. Otherwise, the lungs are clear. Abdomen/Pelvis CT 05/12/21 09:36 IMPRESSION: 1. No hydronephrosis in either kidney. Mild bilateral perinephric edema can be seen with renal insufficiency. 2. Henley catheter in place. Bladder is decompressed. 3. No free fluid in the pelvis. 4. No evidence of small or large bowel obstruction. 5. No other significant findings. Renal Ultrasound 05/12/21 23:28 IMPRESSION: Normal renal ultrasound Echocardiogram: CONCLUSIONS LV systolic function is normal with EF of 50-55% Diastolic function is normal No significant valvular heart disease No comparison studies are available Vitals: Last Vital Signs Temp 97.3 F L 05/13/21 08:00 Pulse 62 05/13/21 08:00 Resp 17 05/13/21 08:00 BP 116/64 05/13/21 08:00 Pulse Ox 97 05/13/21 08:00 Discharge Plan Discharge Patient Disposition: Home Condition: Stable Prescriptions: Continued testosterone [AndroGel] 20.25 mg/1.25 gram (1.62 %) gel in metered-dose pump 1 pump topical DAILY@529 RF: 0 atorvastatin 80 mg tablet 80 mg PO DAILY@529 RF: 0 mirtazapine 30 mg Tablet 30 mg PO DAILY@1999 RF: 0 rivaroxaban 20 mg Tablet 20 mg PO DAILY@1999 RF: 0 Vitamin C 1 tab PO DAILY@529 RF: 0 Vitamin D3 1 tab PO DAILY@529 RF: 0 vitamin E 1 tab PO DAILY@529 RF: 0 sertraline 100 mg tablet 200 mg PO DAILY@529 RF: 0 Held metformin 500 mg tablet 500 mg PO BID@ RF: 0 Hold Instructions: Resume on 05/20/21. lisinopril 20 mg Tablet 40 mg PO DAILY@529 RF: 0 Hold Instructions: Resume on 05/20/21. Discontinued Aleve 220 mg Tablet 220 mg PO Q6H PRN (Reason: Pain) RF: 0 Discharge Orders: Discharge Order (Routine); Ordered 05/13/21 Ordered By: Daniel Jain Referrals: Yessy Marks MD [Primary Care Provider] - 1-3 days (Repeat BMP.. Blood pressure check.) Discharge Diet: Diabetic Discharge Activity: Resume usual activity Patient Instructions: Opioid Safety Activity Restrictions/Additional Instructions: Please follow-up with your primary care provider for repeat BMP early next week. Please avoid taking Metformin and lisinopril for next 1 week. Please avoid using [id number] NSAIDs including ibuprofen. Please check your blood pressure twice daily and maintain a blood pressure diary to follow-up with your primary care provider for further adjustment of antihypertensives. Please make sure that you maintain your hydration with 2 to 3 L of fluid every day. Try to avoid being in the sun for long but if you are make sure your skin is well covered and you are well-hydrated. in for at least next 1 week. Discharge Attestations Time Spent in Discharge Care*: greater than 30 min Specific Discharge Activities: educating patient, discussing with pcp/other providers, discussing with continuous pillowcase cutter/social workers/dc planners, documenting/other paperwork and evaluating patient/reviewing data Status at Discharge: Cognitive status at discharge: cognitively intact, Behavioral status at discharge: cooperative, Functional status at discharge: independent ambulation Overall status at discharge: patient is back to baseline Quality Metrics Clinical Quality Measures During this hospital stay, did patient experience: None Coding Level of Care Code Acute Chg FW DC note Diagnoses Acute renal failure N17.9 Generalized weakness R53.1 Diabetes 1.5, managed as type 2 E13.9 Pulmonary embolism I26.99 Hypertension I10 Hyperlipidemia E78.5 Hypotension I95.9 Heatstroke T67.01XA Dehydration, severe E86.0
--- NOTE | 2021-05-13 10:52 | PC.CHAP ---
Pastoral Care Encounter/Spiritual Assessment Type of Contact [] Declined monorail helper visit [] Patient/Family/Request visit [] Outpatient visit [] Follow-up visit [] Physician referral [] Code/Alert [x] Routine visit [] Staff referral [] Actively dying [] Patient sleeping [] Family support [] [] Out of room [] Palliative care [] [x] Receiving care in room [] Pre-surgical visit [] Trauma [] Long length of stay [] ICU visit [] Other: Relational/Emotional Strength [x] Patient feels connected with others/family/visitors/staff [] Distress [] Loneliness/isolation [] Abandonment Spirituality of Patient [x] Person of Letha [] Attends Restorationist of their Letha [x] Believes in Prayer [] Reads Bible or Quaker materials [] There are Spiritual issues to be addressed Photographer Apprentice Lithographic Interventions [x] Prayer [x] Active listening [x] Non-anxious presence [x] Spiritual/emotional support [] Crisis/trauma care [x] Spiritual counseling [] Bereavement support [] Provided bereavement packet [] Provided Bible/devotional materials [] Provided toy/stuffed animal, coloring book to patient or family member [] Provided Communion [] Anointing/[place] [] Salvation [x] Completed spiritual assessment [] Other: Impact on Illness or Injury [] Angry [] Fearful [] Anxious [] Often cries [] Exhaustion [] Unable to work [] Unable to attend sikhism [] Unable to walk/stand [] Unable to read [] Unable to drive [] Unable to eat/drink [] Unable to sleep [] Unable to be with family [] Patient intubated [] Other: Summary over heat feeliung better and is going home today Time spent with patient 10 mins
[2021-05-13 11:12] VITALS: BP 103/60; PULSE 57; RESP 17; TEMP 36.8; O2SAT 95
[2021-05-13 11:12] LABS: Glucose Point of Care 99 mg/dL (70-110)
--- NOTE | 2021-05-13 13:20 | PC.NURSE ---
IV removed intact at this time. Patient tolerated well. Reviewed patient's discharge with patient and at bedside. Patient and verbalized understanding of follow up appointments and changes in medications, including holding his Lisinopril and Metformin until 05/20/21. Patient is A&Ox3. Respirations even and non-labored on room air. Patient wheel chaired to private car.
[2021-05-13 13:54] VITALS: BP 103/60; PULSE 60; RESP 17; TEMP 36.8; O2SAT 95
== END 2021-05-13 13:20 | disposition home or self-care (01) | DRG 683 ==
LOC: ER 19:33 → MEDSURG 20:12
PROVIDERS: Family Medicine; Admitting Provider Hospitalist; Emergency Provider Emergency Medicine; PCP Family Medicine; Visit Provider Student in an Organized Health Care Education/Training Program
DX: N17.9 Acute kidney failure, unspecified (principal); T67.01XA Heatstroke and sunstroke, initial encounter; T50.8X5A Adverse effect of diagnostic agents, initial encounter; I10 Essential (primary) hypertension; E13.21 Other specified diabetes mellitus with diabetic nephropathy; Z86.711 Personal history of pulmonary embolism; E78.5 Hyperlipidemia, unspecified; E86.0 Dehydration; I95.9 Hypotension, unspecified; F32.9 Major depressive disorder, single episode, unspecified
CPT/HCPCS: 36415; 36416; 36600; 51702; 71045; 74176; 76770; 80051; 80053; 80061; 81001; 82044; 82330; 82436; 82570; 82728; 82805; 82962; 83036; 83540; 83550; 83735; 84133; 84300; 84443; 84484; 85025; 85999; 87086; 93005; 96361; 96374; 97161; 99285; C8929; G0378; J2405; J7030

== ENCOUNTER → 2021-06-09 09:30 | Outpatient (BNVA) | payer OTHER, SELFPAY | PROVIDERS: PCP Family Medicine; Referring Provider Family Medicine; Visit Provider Specialist | DX: G56.21 Lesion of ulnar nerve, right upper limb (principal); M47.12 Other spondylosis with myelopathy, cervical region; G43.711 Chronic migraine without aura, intractable, with status migrainosus; G51.31 Clonic hemifacial spasm, right | CPT/HCPCS: 99204 ==

== ENCOUNTER 2022-05-10 10:41 | Emergency (ER) | payer OTHER, SELFPAY ==
[2022-05-10] VITALS (11 sets, daily range): BP systolic 111–136; BP diastolic 66–98; PULSE 99–108; RESP 15–21; O2SAT 92–99; BMI 38.2
--- NOTE | 2022-05-10 11:13 | ECG_ITS ---
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 Measurements Intervals [place] Rate: 104 P: 38 [place]: 142 QRS: 61 QRSD: 86 T: 56 QT: 298 QTc: 392 Interpretive Statements SINUS TACHYCARDIA Compared to ECG 05/11/2021 21:51:06 Sinus rhythm no longer present Electronically Signed On 05-10-2022 18:31:15 CDT by Osman Wilson M.D. [id number]
--- NOTE | 2022-05-10 11:13 | XRR_ITS ---
PROCEDURE INFORMATION: Exam: XR Chest Exam date and time: 05/10/2022 11:18 AM Age: 51 years old Clinical indication: Cough and dyspnea; Additional info: Dyspnea/cough TECHNIQUE: Imaging protocol: XR of the chest. Views: 1 view. COMPARISON: CR XR chest 1V portable [id number] 05/12/2021 5:20 AM FINDINGS: Lungs: Unremarkable. No consolidation. Pleural spaces: Unremarkable. No pleural effusion. No pneumothorax. Heart/Mediastinum: Unremarkable. No cardiomegaly. Bones/joints: Unremarkable. XR/XR chest 1V portable [id number] IMPRESSION: No acute findings.
--- NOTE | 2022-05-10 11:21 | W.ED.SOB ---
HPI - SOB/Dyspnea General: Chief Complaint: Shortness of Breath/Dyspnea Stated Complaint: SOB Time Seen by Provider: 05/10/22 11:13 Source: patient Mode of arrival: ambulatory Limitations: no limitations History of Present Illness: HPI Narrative: 51-year-old male presents emergency room complaining of shortness breath and exertion. Vomited once this morning is not had any hematemesis. Denies any chest pain he previously had a PE and is still on Xarelto. Had been working outside in the heat and had become excessively tired as well. He has some mild shortness of breath and some orthopnea slightly worse than his baseline. MD elicited complaint: shortness of breath and cough Onset (ago): hour(s) Timing: constant Severity: moderate Exacerbating factors: exertion Relieving factors: nothing, oxygen and rest Associated symptoms: Deny abdominal pain, chest congestion, chest pain, cough, diaphoresis, dizziness, extremity pain, fever(s), hemoptysis, lightheadedness, myalgias, nausea, orthopnea, palpitations, paresthesias, polydipsia, polyuria, rash, sense of impending doom, syncope or vomiting Treatment prior to arrival: none Review of Systems Const: Denies: fever(s), chills, fatigue, malaise or diaphoresis ENMT: Denies: throat pain, ear or mastoid pain, nasal discharge or nasal congestion Card: Denies: chest pain, palpitations, lightheadedness, syncope or orthopnea Resp: Reports: dyspnea; Denies: productive cough, non-productive cough, hemoptysis or chest congestion GI: Denies: abdominal pain, nausea or vomiting : Denies: flank pain, difficulty urinating, dysuria, urinary frequency or urinary urgency Musc: Denies: extremity pain Skin/Breast: Denies: rash or pruritus Neuro: Denies: dizziness Endo: Denies: polyuria or polydipsia PFSH ED PFSH: Medical History Diabetes 1.5, managed as type 2 Hyperlipidemia Hypertension Pulmonary embolism Surgical History H/O hernia repair Family History Grandfather Stroke CAD (coronary artery disease) Father Cancer Social History Smoking and tobacco status: current every day smoker Alcohol intake: current Alcohol intake frequency: 0-2 Drinks per Day Alcohol type: hard liquor Desire information about alcohol rehabilitation?: No Counseling given: No Course Vital Signs: Vital signs: Vital Signs Pulse Rate 99 05/10/22 16:50 Respiratory Rate 18 05/10/22 16:50 Blood Pressure 128/98 05/10/22 16:50 Pulse Oximetry 96 05/10/22 16:50 MDM - SOB/Dyspnea Medical Decision Making Labs and imaging reviewed CTA of the chest negative patient is feeling somewhat better we will go and discharge him follow-up with his primary care doctor in the next 3 to 4 days return if is further problems. Lasix started daily. Medical Records I reviewed the patient's medical records. Lab Data I reviewed the patient's lab results. : 05/10/22 11:21 05/10/22 11:21 Labs/Radiology: Radiology Impressions Chest X-Ray 05/10/22 11:13 IMPRESSION: No acute findings. Chest CTA 05/10/22 14:19 IMPRESSION: 1. Suboptimal opacification of the pulmonary arteries. No central pulmonary embolism. 2. Very mild pulmonary congestion. 3. No pneumonia. 4. No RIGHT heart strain. Laboratory Results WBC 10.4 10^3/uL (4.0-10.0) H 05/10/22 11:21 RBC 5.31 10^6/uL (4.1-5.3) H 05/10/22 11:21 Hgb 16.5 g/dL (11.7-16.6) 05/10/22 11:21 Hct 49.1 % (42.0-52.0) 05/10/22 11:21 MCV 92.5 fl (80-94) 05/10/22 11:21 MCH 31.1 pg (28.0-34.0) 05/10/22 11:21 MCHC 33.6 g/dL (30.0-36.0) 05/10/22 11:21 RDW 12.5 % (12.1-15.1) 05/10/22 11:21 Plt Count 213 10^3/cmm (130-400) 05/10/22 11:21 MPV 10.9 fL (7.4-10.4) H 05/10/22 11:21 Neut % (Auto) 67.5 % 05/10/22 11:21 Lymph % (Auto) 25.0 % 05/10/22 11:21 [place] % (Auto) 4.9 % 05/10/22 11:21 Eos % (Auto) 1.7 % 05/10/22 11:21 Baso % (Auto) 0.5 % 05/10/22 11:21 Neut # (Auto) 7.01 10^3/uL (1.8-7.7) 05/10/22 11:21 Lymph # (Auto) 2.6 10^3/uL (0.8-4.8) 05/10/22 11:21 [place] # (Auto) 0.5 10^3/uL (0.2-0.9) 05/10/22 11:21 Eos # (Auto) 0.2 10^3/uL (0.0-0.8) 05/10/22 11:21 Baso # (Auto) 0.1 10^3/uL (0.0-0.1) 05/10/22 11:21 Nucleated RBC % (auto) 0 % 05/10/22 11:21 Nucleated RBCs # 0.0 /100WBC 05/10/22 11:21 Sodium 133 mmol/L (136-145) L 05/10/22 11:21 Potassium 4.7 mmol/L (3.5-5.1) 05/10/22 11:21 Chloride 97 mmol/L (98-107) L 05/10/22 11:21 Carbon Dioxide 21 mmol/L (22-29) L 05/10/22 11:21 Anion Gap 19.7 (5-19) H 05/10/22 11:21 BUN 33 mg/dL (6-20) H 05/10/22 11:21 Creatinine 1.1 mg/dL (0.7-1.2) 05/10/22 11:21 GFR Calculation 70.6 mL/min (90-130) L 05/10/22 11:21 Glucose 200 mg/dL (65-115) H 05/10/22 11:21 Calculated Osmolality 289 mOsm/kg (285-295) 05/10/22 11:21 Calcium 9.1 mg/dL (8.5-10.5) 05/10/22 11:21 Total Bilirubin 0.4 mg/dL (0.15-1.2) 05/10/22 11:21 AST 12 U/L (0-40) 05/10/22 11:21 ALT 14 U/L (0-41) 05/10/22 11:21 Alkaline Phosphatase 84 IU/L (40-130) 05/10/22 11:21 Troponin T Baseline 6 ng/L (0-15) 05/10/22 11:21 Troponin T 120 Minute 7.33 ng/L (0-15) 05/10/22 13:10 Delta Troponin T 1.33 ABS# (0-10) 05/10/22 13:10 Total Protein 8.3 g/dL (6.6-8.7) 05/10/22 11:21 Albumin 5.0 g/dL (3.5-5.2) 05/10/22 11:21 Globulin 3.3 g/dL (1.3-4.6) 05/10/22 11:21 Urine Color Yellow (Yellow) 05/10/22 11:59 Urine Appearance Clear (CLEAR) 05/10/22 11:59 Urine pH 5 (5-7) 05/10/22 11:59 Ur Specific [place] 1.020 (1.005-1.030) 05/10/22 11:59 Urine Protein Neg (Negative) 05/10/22 11:59 Urine Glucose (UA) Norm (Normal) 05/10/22 11:59 Urine Ketones Negative (Negative) 05/10/22 11:59 Urine Blood Neg (Negative) 05/10/22 11:59 Urine Nitrate Negative (Negative) 05/10/22 11:59 Urine Bilirubin Neg (Negative) 05/10/22 11:59 Urine Urobilinogen Norm mg/dL (Negative) 05/10/22 11:59 Ur Leukocyte Esterase Negative (Negative) 05/10/22 11:59 Discharge Plan Discharge Patient Disposition: Home Clinical Impression: Congestive heart failure Condition: Stable Prescriptions: New Lasix 40 mg tablet 40 mg PO DAILY Qty: 7 0RF No Action testosterone [AndroGel] 20.25 mg/1.25 gram (1.62 %) gel in metered-dose pump 1 pump topical DAILY@0530 0RF Rx Instructions: apply 1 pump amount over max area of ONE upper arm and shoulder venlafaxine [Effexor XR] 150 mg capsule,extended release 24hr 150 mg PO DAILY Qty: 30 0RF propranolol 10 mg tablet 10 mg PO BID Qty: 60 0RF atorvastatin 80 mg tablet 80 mg PO DAILY@0530 0RF metformin 500 mg tablet 500 mg PO BID@529,1999 0RF Hold Instructions: Resume on 05/20/21. lisinopril 20 mg Tablet 40 mg PO DAILY@0530 0RF Hold Instructions: Resume on 05/20/21. ascorbic acid (vitamin C) [Vitamin C] 500 mg Tablet 500 mg PO DAILY Qty: 0 0RF vitamin E 400 unit Capsule 400 unit PO DAILY Qty: 0 0RF cholecalciferol (vitamin D3) [Vitamin D3] 25 mcg (1,000 unit) Tablet 25 mcg PO DAILY Qty: 0 0RF rivaroxaban 20 mg Tablet 20 mg PO DAILY@1999 0RF amitriptyline 50 mg Tablet 50 mg PO BEDTIME 0RF Discharge Orders: Discharge ED (Routine); Ordered 05/10/22 Ordered By: Darrell Good Referrals: Yessy Marks MD [Primary Care Provider] - Discharge Diet: Low Salt Discharge Activity: Limit activity as instructed Patient Instructions: Opioid Safety Activity Restrictions/Additional Instructions: Start lasix daily and rechek with your primary care physician within the next week. Coding Level of Care Code ED Director Of Channel Marketing for Leslie Carrillo
--- NOTE | 2022-05-10 11:21 | PC.NURSE ---
PT placed on continuous NIBP, SpO2, and CM
[2022-05-10 11:27] LABS: Basophils # 0.1 10^3/uL (0.0-0.1); Basophils % 0.5 %; Eosinophils # 0.2 10^3/uL (0.0-0.8); Eosinophils % 1.7 %; Hematocrit 49.1 % (42.0-52.0); Hemoglobin 16.5 g/dL (11.7-16.6); Lymphocytes # 2.6 10^3/uL (0.8-4.8); Mean Corpuscular HGB Conc 33.6 g/dL (30.0-36.0); Mean Corpuscular Hemoglobin 31.1 pg (28.0-34.0); Mean Corpuscular Volume 92.5 fl (80-94); Mean Platelet Volume 10.9 fL (7.4-10.4); Monocytes # 0.5 10^3/uL (0.2-0.9); Monocytes % 4.9 %; Neutrophils # 7.01 10^3/uL (1.8-7.7); Neutrophils % 67.5 %; Nucleated Red Blood Cells % 0 %; Platelet Count 213 10^3/cmm (130-400); Red Blood Count 5.31 10^6/uL (4.1-5.3); Red Cell Distribution Width 12.5 % (12.1-15.1); White Blood Count 10.4 10^3/uL (4.0-10.0)
[2022-05-10] MEDS: sodium chloride 0.9% 1,000 ML 999 ML IV (11:27)
[2022-05-10 12:00] LABS: Troponin(5th) Baseline 6 ng/L (0-15)
[2022-05-10 12:05] LABS: Alanine Aminotransferase 14 U/L (0-41); Alkaline Phosphatase 84 IU/L (40-130); Anion Gap 19.7 (5-19); Aspartate Amino Transferase 12 U/L (0-40); Blood Urea Nitrogen 33 mg/dL (6-20); Calcium 9.1 mg/dL (8.5-10.5); Carbon Dioxide 21 mmol/L (22-29); Chloride 97 mmol/L (98-107); Globulin 3.3 g/dL (1.3-4.6); Glomerular Filtration Rate 70.6 mL/min (90-130); Glucose 200 mg/dL (65-115); Osmolality Calculated 289 mOsm/kg (285-295); Potassium 4.7 mmol/L (3.5-5.1); Sodium 133 mmol/L (136-145); Total Bilirubin 0.4 mg/dL (0.15-1.2); Total Protein 8.3 g/dL (6.6-8.7)
[2022-05-10 12:07] LABS: Add Urine Microscopic? NO; Charge for UA Resulting for Rev
[2022-05-10 12:09] LABS: Bilirubin Urine Neg (Negative); Blood Urine Neg (Negative); Glucose Urine UA Norm (Normal); Ketones Urine Negative (Negative); Leukocyte Esterase Urine Negative (Negative); Nitrate Urine Negative (Negative); Protein Urine Neg (Negative); Urine Appearance Clear (CLEAR); Urine Color Yellow (Yellow); Urobilinogen Urine Norm (Negative); pH Urine 5 (5-7)
--- NOTE | 2022-05-10 13:13 | ECG_ITS ---
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 Measurements Intervals Mode Rate: 109 P: 42 IN: 136 QRS: 44 QRSD: 89 T: 43 QT: 294 QTc: 396 Interpretive Statements SINUS TACHYCARDIA Compared to ECG 05/11/2021 21:51:06 Sinus rhythm no longer present Electronically Signed On 05-10-2022 18:35:31 CDT by Osman Wilson M.D. [id number]
--- NOTE | 2022-05-10 13:23 | PC.NURSE ---
EKG done at 1313 and shown to ER doctor
[2022-05-10 14:02] LABS: Troponin 5 2HR 7.33 ng/L (0-15)
--- NOTE | 2022-05-10 14:19 | CT_ITS ---
WS: [id number] CT CHEST ANGIOGRAPHY WITH REFORMATS HISTORY: tachycardia/dyspnea TECHNIQUE: Contiguous axial images are obtained through the chest during arterial injection of intrav enous contrast. Images are reconstructed to evaluate the pulmonary arteries. MIP imaging also reviewe d. All CT scans at [facility] use at least one of these dose optimization techniques: automat ed exposure control; mA and/or kV adjustment per patient size (includes targeted exams where dose is matched to clinical indication); or iterative reconstruction. CONTRAST: Omnipaque 350; 150 mL IV. DLP: 1117.71 mGy.cm COMPARISON: 05/21/2018 Adequate but limited evaluation of the pulmonary arteries due to poor bolus injection. There is signi ficant artifact through the chest by patient's body habitus. No central pulmonary embolism is identif ied. Pulmonary artery size is normal. No RIGHT heart strain. No pericardial or pleural effusions. Shamar y mild pulmonary venous congestion. No mass or nodule or pneumonia. No mediastinal or hilar adenopath y. Small hiatal hernia. Visualized upper abdomen is negative. No adrenal mass. Visualized liver is negative. Gallbladder is c ontracted. No adjacent inflammation. No destructive bone lesions. CT/CT angio chest PE protcl [id number] IMPRESSION: 1. Suboptimal opacification of the pulmonary arteries. No central pulmonary em bolism. 2. Very mild pulmonary congestion. 3. No pneumonia. 4. No RIGHT heart strain.
[2022-05-10 14:24] LABS: Troponin 5 2HR Delta 1.33 ABS# (0-10)
[2022-05-10] MEDS: iohexol 350 mg/mL 100 mL Btl IV ×2 (15:34→15:35)
== END 2022-05-10 16:52 | disposition home or self-care (01) ==
PROVIDERS: Emergency Provider Family Medicine; PCP Family Medicine
DX: I11.0 Hypertensive heart disease with heart failure (principal); I50.9 Heart failure, unspecified; E11.9 Type 2 diabetes mellitus without complications; E78.5 Hyperlipidemia, unspecified; Z86.711 Personal history of pulmonary embolism; Z79.84 Long term (current) use of oral hypoglycemic drugs
CPT/HCPCS: 71045; 71275; 80053; 81003; 84484; 85025; 93005; 99284; J7030; Q9967

== ENCOUNTER → 2022-05-13 11:22 | Outpatient (BNVA) | payer OTHER, SELFPAY | PROVIDERS: PCP Family Medicine; Visit Provider Nurse Practitioner Family | DX: I50.9 Heart failure, unspecified (principal); R06.02 Shortness of breath; F17.200 Nicotine dependence, unspecified, uncomplicated; R42 Dizziness and giddiness; E78.5 Hyperlipidemia, unspecified | CPT/HCPCS: 83880; 99214 ==

== ENCOUNTER 2022-06-05 10:59 | Inpatient (IN) | payer OTHER, SELFPAY ==
[2022-06-05 11:16] VITALS: BP 116/76; PULSE 101; RESP 18; TEMP 36.1; O2SAT 98
--- NOTE | 2022-06-05 11:44 | ECG_ITS ---
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 Measurements Intervals [place] Rate: 92 P: 61 MI: 157 QRS: 42 QRSD: 95 T: 51 QT: 332 QTc: 412 Interpretive Statements SINUS RHYTHM Compared to ECG 05/10/2022 13:15:19 Sinus tachycardia no longer present Electronically Signed On 06-05-2022 23:35:09 CDT by Osman Wilson M.D. [id number]
--- NOTE | 2022-06-05 13:00 | PC.NURSE ---
Pt not in waiting room, per relay record clerk pt and went out to their truck
[2022-06-05 14:28] VITALS: BP 103/66; PULSE 96; O2SAT 97
[2022-06-05 14:35] LABS: Basophils % 0.3 %; Eosinophils # 0.1 10^3/uL (0.0-0.8); Hematocrit 48.6 % (42.0-52.0); Hemoglobin 16.2 g/dL (11.7-16.6); Lymphocytes # 2.8 10^3/uL (0.8-4.8); Lymphocytes % 22.6 %; Mean Corpuscular HGB Conc 33.3 g/dL (30.0-36.0); Mean Corpuscular Hemoglobin 30.6 pg (28.0-34.0); Mean Corpuscular Volume 91.9 fl (80-94); Mean Platelet Volume 10.7 fL (7.4-10.4); Monocytes # 1.5 10^3/uL (0.2-0.9); Monocytes % 11.7 %; Neutrophils # 7.95 10^3/uL (1.8-7.7); Nucleated Red Blood Cells % 0 %; Platelet Count 229 10^3/cmm (130-400); Red Blood Count 5.29 10^6/uL (4.1-5.3); Red Cell Distribution Width 12.7 % (12.1-15.1); White Blood Count 12.4 10^3/uL (4.0-10.0)
[2022-06-05 14:48] LABS: Anion Gap 19.2 (5-19); Blood Urea Nitrogen 50 mg/dL (6-20); Calcium 9.8 mg/dL (8.5-10.5); Carbon Dioxide 23 mmol/L (22-29); Chloride 92 mmol/L (98-107); Glomerular Filtration Rate 14.6 mL/min (90-130); Glucose 142 mg/dL (65-115); Osmolality Calculated 286 mOsm/kg (285-295); Potassium 4.2 mmol/L (3.5-5.1); Sodium 130 mmol/L (136-145)
[2022-06-05 14:49] LABS: Troponin(5th) Baseline 13 ng/L (0-15)
--- NOTE | 2022-06-05 14:55 | CTR_ITS ---
PROCEDURE INFORMATION: Exam: CT Head Without Contrast Exam date and time: 06/05/2022 3:27 PM Age: 52 years old Clinical indication: Pain; Dizziness and other: Weakness; Headache; Additional info: AMS TECHNIQUE: Imaging protocol: Computed tomography of the head without contrast. Radiation optimization: All CT scans at this facility use at least one of these dose optimization techniques: automated exposure control; mA and/or kV adjustment per patient size (includes targeted exams where dose is matched to clinical indication); or iterative reconstruction. COMPARISON: CT head wo con* [id number] 12/01/2020 1:37 PM RADIATION DOSE METRICS: Total DLP (mGy-cm): 1122.58 FINDINGS: Brain: Normal. No hemorrhage. Unremarkable white matter. No mass effect. Cerebral ventricles: No ventriculomegaly. Paranasal sinuses: Visualized sinuses are unremarkable. No fluid levels. Mastoid air cells: Visualized mastoid air cells are well aerated. Bones/joints: Unremarkable. No acute fracture. Soft tissues: Unremarkable. CT/CT head wo con* [id number] IMPRESSION: No acute intracranial abnormality.
--- NOTE | 2022-06-05 15:08 | ED_ITS ---
HPI - General Adult General: Chief complaint: General Medical Stated complaint: Low bp Time Seen by Provider: 06/05/22 14:09 History of Present Illness: Patient is a 52-year-old male with a history of prior kidney failure, VTE on eliquis, DM, HTN presenting to the emergency room for evaluation of generalized weakness, lightheadedness, tingling in the arms, and intermittent vertigo sensation since yesterday. Patient tells me that he has been feeling well since yesterday and wanted to be checked out in the emergency room. Patient also reports mild shortness of breath. Patient denies any contact with COVID-positive patient. Patient reports loose stool but denies any diarrhea, decreased p.o. intake or significant vomiting. Patient denies any rash anywhere. Patient denies any focal weakness in the arms or legs, language difficulty, diplopia, slurring of speech, facial droop, hoarseness of voice. Family, patient upon standing he feels lightheaded and has had difficulty walking. Patient denies any urinary symptoms has been able to void without difficulty. Onset:1 day ago Duration:1 day Location:home Severity:moderate Associated symptoms: Reports dyspnea and malaise; Deny chest pain, nausea, rash, palpitations or vomiting Review of Systems Const: Reports: fatigue, malaise and other (+generalized weakness); Denies: fever(s) or chills Eyes: Denies: change in vision ENMT: Denies: mouth pain Card: Denies: chest pain or palpitations Resp: Reports: dyspnea; Denies: non-productive cough GI: Denies: abdominal pain, nausea, vomiting or diarrhea : Denies: dysuria Musc: Denies: extremity pain Skin/Breast: Denies: rash or new lesions Neuro: Reports: other (+vertigo intermittent, +arm tinglings b/l); Denies: weakness in extremities Psych: Reports: other (Normal mood) Misael/Lymph: Denies: easy bruising PFSH ED PFSH: Medical History Diabetes 1.5, managed as type 2 Hyperlipidemia Hypertension Pulmonary embolism Surgical History H/O hernia repair Family History Grandfather Stroke CAD (coronary artery disease) Father Cancer Social History Smoking and tobacco status: current every day smoker Alcohol intake: current Alcohol intake frequency: 0-2 Drinks per Day Alcohol t ype: hard liquor Desire information about alcohol rehabilitation?: No Counseling given: No Physical Exam Const: COMMON NORMALS: alert HENMT: COMMON NORMALS: atraumatic HEAD & SCALP: atraumatic MOUTH: moist mucous membranes not abnormal Eye: COMMON NORMALS: EOMs intact bilaterally and conjunctivae normal CONJUNCTIVA: Yes conjunctivae normal Neck/C-Spine: COMMON NORMALS: full ROM and supple Resp: COMMON NORMALS: normal respiratory effort and clear to auscultation bilaterally AUSCULTATION: clear to auscultation bilaterally Cardio: COMMON NORMALS: regular rate RATE: regular rate OTHER: 2+ radial pulses b/l GI: COMMON NORMALS: Soft to palpation and non-tender PALPATION: Yes Soft to palpation OTHER: No focal TTP. NO guarding rebound, guarding, rigidity. No CVA tenderness to percussion. Neg Reinoso/Neg McBurney's point tenderness, no suprabupic tenderness to palpation. Extremity: COMMON NORMALS: full ROM Neuro: SENSORIUM/ORIENTATION: Yes alert MOTOR EXAM: No Abnormal motor strength present and Other motor observations present (no focal motor deficits) OTHER: Mental status? Awake, alert, and oriented to self, year, month, location, and situation.? Following simple axial and appendicular commands.? Has appropriate fund of knowledge, comprehension, and insight.? Able to recall and understands pertinent aspects of medical history and current treatment status.? ? Language? Speech is fluent without word-finding difficulties.? Intact naming, expression, adult daycare coordinator, and repetition.? ? Cranial nerves? 2,3,4,6: PERRL, EOMI with no nystagmus. 5: Intact sensation to light touch, symmetric? 7: Smile symmetrical, no facial droop.? 8: Hearing grossly intact.? 9,10: Normal palate movement.? 11: Normal strength in trapezius bilaterally 12: Tongue protrudes midline.? ? Motor examination? Normal bulk & tone. Strength as follows (R/L): Delts (5/5), Biceps (5/5), Triceps (5/5), Wrist ext (5/5), hip flexors (5/5), plantarflexors (5/5), dorsiflexors (5/5). ? Reflexs? Deep tendon examination (R/L): Biceps (2+/2+), Brachialis (2+/2+), Triceps (2+/2+), Knee jerk (2+/2+), Ankle Jerk (1+, 1+), Plantars (down/down) ? Sensation? Light Touch: Grossly intact and equal in upper and lower extremities bilaterally? Romberg: Negative.? Distal joint position sense intact ? Coordination? Fabqga-ho-ezqf-finger movements intact without dysmetria or past-pointing.? Rapid fingertaps: preserved amplitude without decriment.? No tremor, myoclonus or truncal ataxia.? ? Gait/stance? Steady, normal narrow base gait with appropriate arm swing and turning.? Tandem gait without hesitation or loss of balance. Psych: COMMON NORMALS: speech normal SPEECH: Yes normal speech MOOD & AFFECT: Yes euthymic mood Course Vital Signs: Vital signs: Vital Signs Temperature 97.0 F L 06/05/22 11:16 Pulse Rate 96 06/05/22 14:28 Respiratory Rate 18 06/05/22 11:16 Blood Pressure 103/66 06/05/22 14:28 Pulse Oximetry 97 06/05/22 14:28 [facility] - General Adult Medical Decision Making 52-year-old male with history of diabetes, hypertension, VTE on Eliquis, prior renal failure presenting emergency room with lightheadedness, generalized weakness, tingling tingling in the arm, intermittent vertigo. Neuro exam is intact today. Hemodynamically stable. Patient appears to be dry on exam. Patient on lab work and is found to have white count 12.4. Creatinine 4.3 up from baseline 1.1. In the past about a year ago, patient has an episode of dehydration for which she was admitted for acute renal failure. Patient will be admitted today for similar management. Potassium within normal limit. Patient has been to void since yesterday. Patient received 1 L fluid. Disposition: admission Lab Data : 06/05/22 14:12 06/05/22 14:12 Laboratory Results WBC 12.4 10^3/uL (4.0-10.0) H 06/05/22 14:12 RBC 5.29 10^6/uL (4.1-5.3) 06/05/22 14:12 Hgb 16.2 g/dL (11.7-16.6) 06/05/22 14:12 Hct 48.6 % (42.0-52.0) 06/05/22 14:12 MCV 91.9 fl (80-94) 06/05/22 14:12 MCH 30.6 pg (28.0-34.0) 06/05/22 14:12 MCHC 33.3 g/dL (30.0-36.0) 06/05/22 14:12 RDW 12.7 % (12.1-15.1) 06/05/22 14:12 Plt Count 229 10^3/cmm (130-400) 06/05/22 14:12 MPV 10.7 fL (7.4-10.4) H 06/05/22 14:12 Neut % (Auto) 64.0 % 06/05/22 14:12 Lymph % (Auto) 22.6 % 06/05/22 14:12 [place] % (Auto) 11.7 % 06/05/22 14:12 Eos % (Auto) 1.0 % 06/05/22 14:12 Baso % (Auto) 0.3 % 06/05/22 14:12 Neut # (Auto) 7.95 10^3/uL (1.8-7.7) H 06/05/22 14:12 Lymph # (Auto) 2.8 10^3/uL (0.8-4.8) 06/05/22 14:12 [place] # (Auto) 1.5 10^3/uL (0.2-0.9) H 06/05/22 14:12 Eos # (Auto) 0.1 10^3/uL (0.0-0.8) 06/05/22 14:12 Baso # (Auto) 0.0 10^3/uL (0.0-0.1) 06/05/22 14:12 Nucleated RBC % (auto) 0 % 06/05/22 14:12 Nucleated RBCs # 0.0 /100WBC 06/05/22 14:12 Sodium 130 mmol/L (136-145) L 06/05/22 14:12 Potassium 4.2 mmol/L (3.5-5.1) 06/05/22 14:12 Chloride 92 mmol/L (98-107) L 06/05/22 14:12 Carbon Dioxide 23 mmol/L (22-29) 06/05/22 14:12 Anion Gap 19.2 (5-19) H 06/05/22 14:12 BUN 50 mg/dL (6-20) H 06/05/22 14:12 Creatinine 4.3 mg/dL (0.7-1.2) H 06/05/22 14:12 GFR Calculation 14.6 mL/min (90-130) L 06/05/22 14:12 Glucose 142 mg/dL (65-115) H 06/05/22 14:12 Calculated Osmolality 286 mOsm/kg (285-295) 06/05/22 14:12 Calcium 9.8 mg/dL (8.5-10.5) 06/05/22 14:12 Troponin T Baseline 13 ng/L (0-15) 06/05/22 14:12 SARS-CoV-2 Ag (Rapid) Negative (Negative) 06/05/22 14:27 Discharge Plan Discharge Patient Disposition: Admitted As Inpatient Clinical Impression: Acute renal failure, Light headedness Condition: Stable Coding Level of Care Code ED Tower Foreman for Leslie Fwd Exam Comprehensive
[2022-06-05 15:14] LABS: SARS Covid-2 Antigen Negative (Negative)
[2022-06-05] MEDS: sodium chloride 0.9% 1,000 ML 999 ML IV (15:30)
[2022-06-05 17:00] VITALS: BP 118/76; PULSE 85; RESP 20; TEMP 37.3; O2SAT 98; BMI 36.6
[2022-06-05 17:11] LABS: Influenza A by IFA Negative (Negative); Influenza B by IFA Negative (Negative)
[2022-06-05 17:36] VITALS: BP 118/76; PULSE 85; RESP 20; TEMP 37.3; O2SAT 98
--- NOTE | 2022-06-05 17:42 | US_ITS ---
WS: [id number] RENAL ULTRASOUND HISTORY: SOHAN COMPARISON: 05/12/2021 TECHNIQUE: 2-D and color Doppler imaging of the kidney submitted. Right kidney: 12.1 cm x 6.1 cm x 6.7 cm. Normal echogenicity with no hydronephrosis or mass. Left kidney: 11.6 cm x 6.2 cm x 5.3 cm. Normal echogenicity with no hydronephrosis or mass. Aorta: Not visualized. Urinary Bladder: Not visible. Nondistended and obscured by bowel gas. US/US renal BI* [id number] IMPRESSION: Normal renal ultrasound.
--- NOTE | 2022-06-05 17:43 | P.HP_ITS ---
Providers/Chief Complaint Admitting Physician: Doyle Covington MD Primary Care Provider: Yessy Marks MD Chief Complaint: Low bp History of Present Illness Philip Carroll is a 52 year old male past medical history of hypertension, DVT, diabetes, came in with chief complaint of generalized weakness, tingling and numbness in both upper extremities, dizziness, nausea vomiting, symptoms started about a week back and since then it has progressed, he is complaining of some Nonproductive cough, denies any chest pain, abdominal pain, fever. Upon arrival in the ER he was worked up for above-mentioned complaint: Pertinent imaging study: CT head without contrast: No acute intracranial abnormality. EKG: Sinus rhythm Pertinent labs: WBC 12.4 , H&H:16/48 , plt : 229 , serum sodium 130 , serum potassium 4.2 , BUN serum creatinine 50/ 4.3 , Random blood sugar 121, Baseline troponin 13 Review of Systems General: Reports: 10 or more systems reviewed and unremarkable except in HPI and below Const: Denies: fever(s), chills, body aches, change in appetite or diaphoresis Card: Denies: palpitations, edema, swelling of feet/ankles or leg pain with exertion Resp: Denies: wheezing or pain on inspiration GI: Reports: nausea and vomiting; Denies: abdominal pain, diarrhea or constipation : Denies: flank pain or difficulty urinating Musc: Denies: back pain, extremity pain or extremity swelling Neuro: Denies: headache(s), difficulty walking or confusion Medications/Allergies Home Medications Medication Instructions Recorded Confirmed Last Taken Type ascorbic acid (vitamin C) 500 mg 500 mg PO DAILY #0 12/01/20 06/05/22 06/05/22 History tablet (Vitamin C) cholecalciferol (vitamin D3) 25 25 mcg PO DAILY #0 12/01/20 06/05/22 06/05/22 History mcg (1,000 unit) tablet (Vitamin D3) lisinopril 20 mg tablet 40 mg PO DAILY@52912/01/20 06/05/22 06/04/22 History rivaroxaban 20 mg tablet 20 mg PO DAILY@199912/01/20 06/05/22 06/04/22 History vitamin E 400 unit capsule 400 unit PO DAILY #0 12/01/20 06/05/22 06/05/22 History testosterone 20.25 mg/1.25 gram 1 pump TOPICAL DAILY@0530 12/31/20 06/05/22 06/05/22 History (1.62 %) transdermal gel pump (AndroGel) atorvastatin 80 mg tablet 80 mg PO DAILY@0530 04/10/21 06/05/22 06/04/22 History metformin 500 mg tablet 500 mg PO BID@05,199904/10/21 06/05/22 06/05/22 History propranolol 10 mg tablet 10 mg PO BID #60 tab 06/09/21 06/05/22 06/05/22 Rx venlafaxine 150 mg 150 mg PO DAILY #30 cap 06/09/21 06/05/22 06/05/22 Rx capsule,extended release 24 hr (Effexor XR) amitriptyline 50 mg tablet 50 mg PO BEDTIME 05/10/22 06/05/22 06/04/22 History Allergies Allergy/AdvReac Type Severity Reaction Status Date / Time No Known Allergies Allergy Verified 06/05/22 11:21 PFSH Acute PFSH: Medical History Diabetes 1.5, managed as type 2 Hyperlipidemia Hypertension Pulmonary embolism Surgical History H/O hernia repair Family History Grandfather Stroke CAD (coronary artery disease) Father Cancer Social History Smoking and tobacco status: current every day smoker Alcohol intake: current Alcohol intake frequency: 0-2 Drinks per Day Alcohol type: hard liquor Desire information about alcohol rehabilitation?: No Counseling given: No Vitals/I&O/Wt Last Vital Signs Temp 99.1 F 06/05/22 17:00 Pulse 85 06/05/22 17:00 Resp 20 H 06/05/22 17:00 BP 118/76 06/05/22 17:00 Pulse Ox 98 06/05/22 17:00 Weight last 48 hrs Weight 129.591 kg Weight 131.542 kg Physical Exam Const: COMMON NORMALS: patient oriented x3 HENMT: COMMON NORMALS: normocephalic and atraumatic HEAD & SCALP: normocephalic and atraumatic Chest: CHEST: Yes Symmetrical chest wall rise Resp: COMMON NORMALS: clear to auscultation bilaterally EFFORT & INSPECTION: Yes symmetric chest movement AUSCULTATION: clear to auscultation bilaterally Cardio: COMMON NORMALS: regular rate, regular rhythm, S1 normal heart sound present, S2 normal heart sound present, No gallops present (Cardio), No murmurs present (Cardio), No rub (Cardio) and Peripheral pulses 2+ throughout RATE: regular rate RHYTHM: regular rhythm HEART SOUNDS: S1 normal heart sound present and S2 normal heart sound present PERIPHERAL PULSES: Peripheral pulses 2+ throughout GI: COMMON NORMALS: Normal to inspection, nondistended, normoactive bowel sounds present, Soft to palpation, non-tender, No hepatosplenomegaly present and no masses AUSCULTATION: Yes normoactive bowel sounds PALPATION: Yes Soft to palpation and Yes No hepatosplenomegaly present RECTAL EXAM: Yes deferred Extremity: COMMON NORMALS: no clubbing, cyanosis or edema and no pedal edema Neuro: COMMON NORMALS: patient oriented x3 Data : 06/05/22 14:12 06/05/22 14:12 A&P Assessment and plan (1) Hypertension: Status: Acute (2) Diabetes: Status: Acute (3) Acute kidney injury superimposed on CKD: Status: Acute (4) Hyponatremia: Status: Acute Plan 52 year old male past medical history of hypertension, DVT, diabetes, came in with chief complaint of generalized weakness, tingling and numbness in both upper extremities, dizziness, nausea vomiting. Assessment: SOHAN on CKD: Possibly prerenal SOHAN Hyponatremia Hypertension Diabetes History of DVT Plan: Follow renal ultrasound Random urine sodium Random urine creatinine Random urine total protein Follow urinalysis Monitor intake output charting Monitor BMP Continue IV hydration with normal saline at 100 cc an hour Avoid nephrotoxic's Hold lisinopril for now Low-dose sliding scale insulin Diabetic diet Monitor fingerstick glucose Continue therapeutic Lovenox for history of DVT CODE STATUS: Full code DVT prophylaxis: Not needed on therapeutic Lovenox Attestations Medical Necessity Statement*: Patient needs to be in hospital for management of SOHAN on CKD. Anticipated length of stay greater than 2 midnights Time Spent in Patient Care: Greater than 35 minutes (>than 50% of time s pent in counselling and/or direct pt care on unit) . Coding Level of Care Code Acute Manager Of Pharmacy for g Fwd Exam Detailed Diagnoses Hypertension I10 Diabetes E11.9 Acute kidney injury superimposed on CKD N17.9; N18.9 Hyponatremia E87.1
[2022-06-05 18:16] LABS: Glucose Point of Care 121 mg/dL (70-110)
[2022-06-05] MEDS: acetaminophen 325 mg Tablet 650 MG PO (19:55)
[2022-06-05 20:00] VITALS: BP 113/73; PULSE 100; RESP 17; TEMP 36.8; O2SAT 95
[2022-06-05 20:08] LABS: Creatinine Urine, Random 419 mg/dL (39-259)
[2022-06-05 20:13] LABS: Urine Random Sodium 64 mmol/L
[2022-06-05 20:14] LABS: Urine Protein Random 53 mg/dL
[2022-06-05 20:18] LABS: Add Urine Microscopic? YES; Bilirubin Urine 1+ (Negative); Blood Urine 3+ (Negative); Glucose Urine UA Norm (Normal); Ketones Urine Negative (Negative); Leukocyte Esterase Urine Negative (Negative); Nitrate Urine Negative (Negative); Protein Urine Trace (Negative); Specific Gravity, Urine 1.025 (1.005-1.030); Urine Appearance Hazy (CLEAR); Urine Color Yellow (Yellow); Urobilinogen Urine Norm (Negative); pH Urine 5 (5-7)
[2022-06-05 20:36] LABS: RBC Urine 40-50 /hpf (0-2); WBC Urine 0-4 /hpf (0-5)
[2022-06-05 20:37] LABS: Bacteria Urine 1+ /hpf; Mucus Urine 2+ /hpf
[2022-06-05 20:38] LABS: Calcium Oxalate Crystals Urine 0-4 /hpf; Hyaline Casts Urine 0-4 /lpf
[2022-06-05 20:39] LABS: Add Urine Culture? Yes
[2022-06-05] MEDS: enoxaparin 150 mg/mL Syringe 130 MG SUBCUT (21:10)
[2022-06-05] MEDS: insulin lispro 100 unit/1 mL SUBCUT (21:10)
[2022-06-05] MEDS: sodium chloride 0.9% 1,000 ML 100 ML IV (22:14)
[2022-06-06] VITALS (7 sets, daily range): BP systolic 101–129; BP diastolic 66–79; PULSE 81–105; RESP 13–17; TEMP 36.4–37.3; O2SAT 95–97
[2022-06-06 00:56] LABS: Glucose Point of Care 160 mg/dL (70-110)
[2022-06-06 03:58] LABS: Basophils % 0.3 %; Eosinophils # 0.2 10^3/uL (0.0-0.8); Eosinophils % 1.9 %; Hematocrit 47.2 % (42.0-52.0); Hemoglobin 15.2 g/dL (11.7-16.6); Lymphocytes % 43.2 %; Mean Corpuscular HGB Conc 32.2 g/dL (30.0-36.0); Mean Corpuscular Hemoglobin 30.5 pg (28.0-34.0); Mean Corpuscular Volume 94.8 fl (80-94); Mean Platelet Volume 10.7 fL (7.4-10.4); Monocytes % 11.4 %; Neutrophils # 3.93 10^3/uL (1.8-7.7); Neutrophils % 42.9 %; Nucleated Red Blood Cells % 0 %; Platelet Count 191 10^3/cmm (130-400); Red Blood Count 4.98 10^6/uL (4.1-5.3); Red Cell Distribution Width 12.9 % (12.1-15.1); White Blood Count 9.2 10^3/uL (4.0-10.0)
[2022-06-06 04:23] LABS: Anion Gap 18.1 (5-19); Blood Urea Nitrogen 51 mg/dL (6-20); Calcium 8.8 mg/dL (8.5-10.5); Carbon Dioxide 24 mmol/L (22-29); Chloride 96 mmol/L (98-107); Glomerular Filtration Rate 26.1 mL/min (90-130); Glucose 114 mg/dL (65-115); Osmolality Calculated 293 mOsm/kg (285-295); Potassium 4.1 mmol/L (3.5-5.1); Sodium 134 mmol/L (136-145)
[2022-06-06] MEDS: atorvastatin 40 mg Tablet 80 MG PO (05:08)
[2022-06-06 06:56] LABS: Glucose Point of Care 102 mg/dL (70-110)
--- NOTE | 2022-06-06 07:23 | PC.NURSE ---
Bedside report received from ESME Aranda.
[2022-06-06] MEDS: ascorbic acid 500 mg Tablet PO (08:16)
[2022-06-06] MEDS: venlafaxine ER (24HR) 150 mg Capsule PO (08:16)
[2022-06-06] MEDS: cholecalciferol (vitamin D3) 1,000 unit Tablet 1000 UNIT PO (08:16)
[2022-06-06] MEDS: sodium chloride 0.9% 1,000 ML 100 ML IV ×2 (08:18→18:15)
[2022-06-06 11:24] LABS: Glucose Point of Care 168 mg/dL (70-110)
[2022-06-06] MEDS: insulin lispro 100 unit/1 mL SUBCUT ×2 (12:42→17:58)
[2022-06-06 12:52] LABS: Iron 107 ug/dL (59-158); Percent Saturation 37.8 % (20-50); Total Iron Binding Capacity 283 mcg/dl; Unsaturated Iron Binding 176 ug/dL (112-347)
[2022-06-06 13:47] LABS: Thyroid Stimulating Hormone 1.13 uIU/mL (0.27-4.20)
--- NOTE | 2022-06-06 15:50 | PM.PN ---
Subjective Subjective: Hospital course, labs appreciated. Denies any nausea, vomiting, headache. Has remained hemodynamically stable and afebrile. Currently on room air. Denies any chest pain. Good urine output. 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 Vitals/I&O/Wt Last Vital Signs Temp 98.9 F 06/06/22 11:39 Pulse 103 H 06/06/22 11:39 Resp 13 06/06/22 11:39 BP 108/76 06/06/22 11:39 Pulse Ox 95 06/06/22 11:39 06/06/22 06/06/22 06/06/22 06:59 14:59 22:59 Intake Total 1350 / 1350 Output Total 500 / 700 975 / 975 Balance -500 / 540 375 / 375 Weight last 48 hrs Weight 129.591 kg Weight 131.542 kg Physical Exam Const: COMMON NORMALS: patient oriented x3 HENMT: COMMON NORMALS: normocephalic and atraumatic HEAD & SCALP: normocephalic and atraumatic Chest: CHEST: Yes Symmetrical chest wall rise Resp: COMMON NORMALS: clear to auscultation bilaterally EFFORT & INSPECTION: Yes symmetric chest movement AUSCULTATION: clear to auscultation bilaterally Cardio: COMMON NORMALS: regular rate, regular rhythm, S1 normal heart sound present, S2 normal heart sound present, No gallops present (Cardio), No murmurs present (Cardio), No rub (Cardio) and Peripheral pulses 2+ throughout RATE: regular rate RHYTHM: regular rhythm HEART SOUNDS: S1 normal heart sound present and S2 normal heart sound present PERIPHERAL PULSES: Peripheral pulses 2+ throughout GI: COMMON NORMALS: Normal to inspection, nondistended, normoactive bowel sounds present, Soft to palpation, non-tender, No hepatosplenomegaly present and no masses AUSCULTATION: Yes normoactive bowel sounds PALPATION: Yes Soft to palpation and Yes No hepatosplenomegaly present RECTAL EXAM: Yes deferred Extremity: COMMON NORMALS: no clubbing, cyanosis or edema and no pedal edema Neuro: COMMON NORMALS: patient oriented x3 Data : 06/06/22 03:03 06/06/22 03:03 A&P Assessment and plan (1) Acute kidney injury superimposed on CKD: Most likely secondary dehydration from heatstroke along with use of lisinopril and Lasix which was started for him recently by the ER. Medical reconciliation done for nephrotoxic drugs. Hold off on lisinopril. IV hydration. Ultrasound negative for acute abnormality. Status: Acute (2) Hypertension: Goal blood pressure less than 140/90 MNG. Blood pressure under control right now. Hold off on lisinopril. Start on low-dose metoprolol 12.5 mg twice daily. Status: Acute (3) Diabetes: Status: Acute (4) Hyponatremia: Status: Acute (5) CAD (coronary artery disease): Cardiac angiogram done in 2020 showed normal coronaries except moderate diffuse disease of the PDA. Concerns for unstable angina as an outpatient with outpatient cardiology. Check echocardiogram. Status: Acute Plan History of pulmonary embolism: Takes Xarelto 20 mg daily at home. Switch to 15 mg daily for now as per creatinine clearance. Analgesia: Tylenol as needed Glycemic control: Low-dose insulin sliding scale Nutrition: Carb consistent diet CODE STATUS: Full code PUD prophylaxis: DVT prophylaxis: Xarelto will help as DVT prophylaxis. Discharge planning: Discharge home within next 24 to 48 hours if creatinine continues to improve. Continue with care at [facility] floor with telemetry. Attestations Medical Necessity Statement*: Requires further hospitalization for management of SOHAN on CKD secondary to dehydration Time Spent in Patient Care: Greater than 35 minutes Coding Level of Care Code Acute Line Service Attendant for g Fwd Diagnoses Hypertension I10 Diabetes E11.9 Acute kidney injury superimposed on CKD N17.9; N18.9 Hyponatremia E87.1 CAD (coronary artery disease) I25.10
--- NOTE | 2022-06-06 15:58 | USCV_ITS ---
Philip Carroll Age: 52 Gender: M : 1970 Exam Date: 06/06/2022 16:41 Ordering Phys: Daniel Jain MD Technologist: PAL Exam Location: [facility] – [place] Indication: elevated hr, htn BP: 117 / 79 HR: 93 Rhythm: Sinus Technical Quality: Difficult MEASUREMENTS (Male / Female) Normal Values 2D ECHO LV Diastolic Diameter PLAX 4.1 cm 4.2 - 5.9 / 3.9 - 5.3 cm LV Systolic Diameter PLAX 2.4 cm IVS Diastolic Thickness 1.2 cm 0.6 - 1.0 / 0.6 - 0.9 cm IVS Systolic Thickness 1.4 cm LVPW Diastolic Thickness 1.4 cm 0.6 - 1.0 / 0.6 - 0.9 cm LVPW Systolic Thickness 1.5 cm LVOT Diameter 2.1 cm LV Ejection Fraction 2D Teich 72.3 % LV Ejection Fraction MOD 2C 67.9 % LV Ejection Fraction 2C AL 68.1 % LA Diameter 4.4 cm RA Width 3.9 cm RA Height 4.4 cm Aorta at Sinotubular Diameter 2.8 cm M-MODE MV E Point Septal Separation 0.6 cm DOPPLER AV Peak Velocity 156.0 cm/s LVOT Peak Velocity 110.0 cm/s AV Area Cont Eq vti 2.2 cm squared AV Area Cont Eq pk 2.4 cm squared MV Area PHT 5.0 cm squared Mitral E to A Ratio 1.0 MV E' Velocity 45.0 cm/s Mitral E to MV E' Ratio 11.4 Mitral E to LV E' Lateral Ratio 12.4 Mitral E to LV E' Septal Ratio 10.6 TR Peak Velocity 285.3 cm/s TR Peak Gradient 32.6 mmHg Right Atrial Pressure 5.0 mmHg Pulmonary Artery Systolic Pressu 37.6 mmHg PV Peak Velocity 82.0 cm/s FINDINGS Left Ventricle Normal left ventricular size. LV systolic function is normal with EF of 60-65%. No regional wall motion abnormalities. Right Ventricle The right ventricle is normal in size and function. Right Atrium The right atrium is normal in size. Left Atrium The left atrium is normal in size. Mitral Valve Structurally normal mitral valve without significant stenosis or prolapse. There is no mitral regurgitation. Aortic Valve Structurally normal aortic valve without significant sclerosis or stenosis. There is no aortic regurgitation. Tricuspid Valve Structurally normal tricuspid valve without significant stenosis. Trace tricuspid regurgitation. Insufficient TR jet to calculate RVSP Pulmonic Valve Not well visualized Pericardium Normal pericardium without effusion. Aorta Normal ascending aorta dimension. IVC CONCLUSIONS LV systolic function is normal with EF of 60 to 65%. Trace tricuspid regurgitation No significant valvular heart disease. Compared to prior echocardiogram from 05/12/2021, LV systolic function appears to have improved now Osman Wilson MD (Electronically Signed) Final Date: 06 June 2022 18:18 S
[2022-06-06 17:37] LABS: Glucose Point of Care 181 mg/dL (70-110)
[2022-06-06 20:24] LABS: Glucose Point of Care 105 mg/dL (70-110)
[2022-06-06] MEDS: metoprolol tartrate 25 mg Tablet 12.5 MG PO (20:41)
[2022-06-07] VITALS: BP 119/78; PULSE 70; RESP 17; TEMP 36.6; O2SAT 97
[2022-06-07 04:00] VITALS: BP 129/81; PULSE 64; RESP 17; TEMP 36.9; O2SAT 98
[2022-06-07] MEDS: atorvastatin 40 mg Tablet 80 MG PO (04:50)
[2022-06-07] MEDS: sodium chloride 0.9% 1,000 ML 100 ML IV (04:50)
[2022-06-07 05:19] LABS: Basophils % 0.4 %; Eosinophils # 0.2 10^3/uL (0.0-0.8); Eosinophils % 1.8 %; Hematocrit 42.2 % (42.0-52.0); Hemoglobin 13.8 g/dL (11.7-16.6); Lymphocytes # 2.7 10^3/uL (0.8-4.8); Mean Corpuscular HGB Conc 32.7 g/dL (30.0-36.0); Mean Corpuscular Hemoglobin 30.7 pg (28.0-34.0); Mean Corpuscular Volume 93.8 fl (80-94); Mean Platelet Volume 10.5 fL (7.4-10.4); Monocytes # 1.1 10^3/uL (0.2-0.9); Monocytes % 12.7 %; Neutrophils # 4.44 10^3/uL (1.8-7.7); Neutrophils % 52.9 %; Nucleated Red Blood Cells % 0 %; Platelet Count 161 10^3/cmm (130-400); Red Cell Distribution Width 12.6 % (12.1-15.1); White Blood Count 8.4 10^3/uL (4.0-10.0)
[2022-06-07 05:35] LABS: Alanine Aminotransferase 11 U/L (0-41); Albumin Level 4.2 g/dL (3.5-5.2); Alkaline Phosphatase 61 IU/L (40-130); Anion Gap 14.5 (5-19); Aspartate Amino Transferase 10 U/L (0-40); Blood Urea Nitrogen 20 mg/dL (6-20); Calcium 8.8 mg/dL (8.5-10.5); Carbon Dioxide 24 mmol/L (22-29); Chloride 102 mmol/L (98-107); Chol HDL Ratio 3.35 mg/dL (1.0-5.00); Cholesterol 124 mg/dL (0-200); Creatinine Clr Calc Pharmacy 123.6356; Estmated Average Glucose 140; Globulin 2.7 g/dL (1.3-4.6); Glomerular Filtration Rate 78.5 mL/min (90-130); Glucose 99 mg/dL (65-115); HDL Cholesterol 37 mg/dL (60-100); Hemoglobin A1C 6.5 % (4.0-6.0); LDL Cholesterol Calculated 61 mg/dL (50-129); Osmolality Calculated 285 mOsm/kg (285-295); Potassium 4.5 mmol/L (3.5-5.1); Sodium 136 mmol/L (136-145); Total Bilirubin 0.5 mg/dL (0.15-1.2); Total Protein 6.9 g/dL (6.6-8.7); Triglycerides 129 mg/dL (0-150); VLDL Cholestrol Calculation 26 mg/dL (0-30)
[2022-06-07 06:50] LABS: Glucose Point of Care 103 mg/dL (70-110)
[2022-06-07 08:00] VITALS: BP 129/83; PULSE 67; RESP 16; TEMP 36.7; O2SAT 96
[2022-06-07] MEDS: rivaroxaban 10 mg Tablet 15 MG PO (08:33)
[2022-06-07] MEDS: cholecalciferol (vitamin D3) 1,000 unit Tablet 1000 UNIT PO (08:33)
[2022-06-07] MEDS: venlafaxine ER (24HR) 75 mg Capsule PO (08:33)
[2022-06-07] MEDS: metoprolol tartrate 25 mg Tablet 12.5 MG PO (08:34)
[2022-06-07 11:05] LABS: Glucose Point of Care 128 mg/dL (70-110)
[2022-06-07 11:37] VITALS: BP 127/81; PULSE 71; RESP 16; TEMP 36.6; O2SAT 95
--- NOTE | 2022-06-07 12:25 | P.DS_ITS ---
Discharge Providers Date of Admission: 06/05/22 15:14 Date of Discharge: June 07, 2022 Attending Provider at Admission: Doyle Covington MD Attending Provider at Discharge: Daniel Jain MD Primary Care Provider: Yessy Marks MD Diagnoses at Discharge Discharge Diagnosis (1) Acute kidney injury superimposed on CKD: Status: Acute (2) Hypertension: Status: Acute (3) Diabetes: Status: Acute (4) Hyponatremia: Status: Acute (5) CAD (coronary artery disease): Status: Acute Reason for Visit Reason for Visit: Low bp Hospital Course Hospital Course Philip Carroll is a 52 year old male?with a past medical history significant for hypertension, diabetes, pulmonary embolism on Xarelto who presented to hospital with?chief complaint of generalized weakness, tingling and numbness in both upper extremities, dizziness, nausea vomiting, symptoms started about a week back and since then it has progressed, he is complaining of some Nonproductive cough, denies any chest pain, abdominal pain, fever. Patient on admission was found to be in acute kidney injury most likely secondary to dehydration while being on lisinopril along with newly added Lasix. On admission his blood pressures are borderline. He was started on IV fluids and his antihypertensives were withheld. His creatinine is back to normal on the day of discharge. On further review of chart it seems patient had followed up with cardiology service as an outpatient for possible unstable angina and was advised to do echocardiogram. Echocardiogram was repeated during hospitalization which showed improvement in his EF up to 65% without any regional wall motion abnormality. He has been discharged in hemodynamically stable condition with advised to maintain his hydration with at least 2 to 3 L of fluids daily. He is advised to stop taking propanol and instead has been switched over to metoprolol 25 mg twice daily. He is advised not to take lisinopril for now. He is to check his blood pressures daily at home and maintain a blood pressure diary and follow-up with his primary care provider within next 10 days for further adjustment of antihypertensives as needed. If his blood pressures go higher than 140/90 mmHg he is to restart lisinopril at 10 mg daily. Physical Exam Const: COMMON NORMALS: patient oriented x3 HENMT: COMMON NORMALS: normocephalic and atraumatic HEAD & SCALP: normocephalic and atraumatic Chest: CHEST: Yes Symmetrical chest wall rise Resp: COMMON NORMALS: clear to auscultation bilaterally EFFORT & INSPECTION: Yes symmetric chest movement AUSCULTATION: clear to auscultation bilaterally Cardio: COMMON NORMALS: regular rate, regular rhythm, S1 normal heart sound present, S2 normal heart sound present, No gallops present (Cardio), No murmurs present (Cardio), No rub (Cardio) and Peripheral pulses 2+ throughout RATE: regular rate RHYTHM: regular rhythm HEART SOUNDS: S1 normal heart sound present and S2 normal heart sound present PERIPHERAL PULSES: Peripheral pulses 2+ throughout GI: COMMON NORMALS: Normal to inspection, nondistended, normoactive bowel sounds present, Soft to palpation, non-tender, No hepatosplenomegaly present and no masses AUSCULTATION: Yes normoactive bowel sounds PALPATION: Yes Soft to palpation and Yes No hepatosplenomegaly present RECTAL EXAM: Yes deferred Extremity: COMMON NORMALS: no clubbing, cyanosis or edema and no pedal edema Neuro: COMMON NORMALS: patient oriented x3 Discharge Data Studies Completed and Pending Completed Studies During Hospitalization Category Date Time Status CT head wo con* [id number] Urgent Cat Scan 06/05/22 14:55 Completed CV. echo complete* [id number] Routine Ultrasound 06/06/22 15:58 Completed US renal BI* [id number] Routine Ultrasound 06/05/22 17:42 Completed Pending at discharge Category Date Time Status Complete Blood Count w/Auto AM LABS Lab 06/08/22 04:00 Ordered Radiology Impressions Head CT 06/05/22 14:55 IMPRESSION: No acute intracranial abnormality. Renal Ultrasound 06/05/22 17:42 IMPRESSION: Normal renal ultrasound. Echocardiogram: CONCLUSIONS ?LV systolic function is normal with EF of 60 to 65%. ?Trace tricuspid regurgitation ?No significant valvular heart disease. ?Compared to prior echocardiogram from 05/12/2021, LV systolic?function appears to have improved now ?Osman Wilson MD ?(Electronically Signed) ?Final Date:? ? ? 06 June 2022 ? 18:18 Laboratory Results WBC 8.4 10^3/uL (4.0-10.0) 06/07/22 04:54 RBC 4.50 10^6/uL (4.1-5.3) 06/07/22 04:54 Hgb 13.8 g/dL (11.7-16.6) 06/07/22 04:54 Hct 42.2 % (42.0-52.0) 06/07/22 04:54 MCV 93.8 fl (80-94) 06/07/22 04:54 MCH 30.7 pg (28.0-34.0) 06/07/22 04:54 MCHC 32.7 g/dL (30.0-36.0) 06/07/22 04:54 RDW 12.6 % (12.1-15.1) 06/07/22 04:54 Plt Count 161 10^3/cmm (130-400) 06/07/22 04:54 MPV 10.5 fL (7.4-10.4) H 06/07/22 04:54 Neut % (Auto) 52.9 % 06/07/22 04:54 Lymph % (Auto) 32.0 % 06/07/22 04:54 Hutchinson % (Auto) 12.7 % 06/07/22 04:54 Eos % (Auto) 1.8 % 06/07/22 04:54 Baso % (Auto) 0.4 % 06/07/22 04:54 Neut # (Auto) 4.44 10^3/uL (1.8-7.7) 06/07/22 04:54 Lymph # (Auto) 2.7 10^3/uL (0.8-4.8) 06/07/22 04:54 Hutchinson # (Auto) 1.1 10^3/uL (0.2-0.9) H 06/07/22 04:54 Eos # (Auto) 0.2 10^3/uL (0.0-0.8) 06/07/22 04:54 Baso # (Auto) 0.0 10^3/uL (0.0-0.1) 06/07/22 04:54 Nucleated RBC % (auto) 0 % 06/07/22 04:54 Nucleated RBCs # 0.0 /100WBC 06/07/22 04:54 Sodium 136 mmol/L (136-145) 06/07/22 04:54 Potassium 4.5 mmol/L (3.5-5.1) 06/07/22 04:54 Chloride 102 mmol/L (98-107) 06/07/22 04:54 Carbon Dioxide 24 mmol/L (22-29) 06/07/22 04:54 Anion Gap 14.5 (5-19) 06/07/22 04:54 BUN 20 mg/dL (6-20) 06/07/22 04:54 Creatinine 1.0 mg/dL (0.7-1.2) 06/07/22 04:54 GFR Calculation 78.5 mL/min (90-130) L 06/07/22 04:54 Glucose 99 mg/dL (65-115) 06/07/22 04:54 POC Glucose 128 mg/dL (70-110) H 06/07/22 10:33 Estimat Average Glucose 140 06/07/22 04:54 Hemoglobin A1c 6.5 % (4.0-6.0) H 06/07/22 04:54 Calculated Osmolality 285 mOsm/kg (285-295) 06/07/22 04:54 Calcium 8.8 mg/dL (8.5-10.5) 06/07/22 04:54 Iron 107 ug/dL (59-158) 06/06/22 03:03 TIBC 283 mcg/dl 06/06/22 03:03 % Saturation 37.8 % (20-50) 06/06/22 03:03 Unsat Iron Binding 176 ug/dL (112-347) 06/06/22 03:03 Total Bilirubin 0.5 mg/dL (0.15-1.2) 06/07/22 04:54 AST 10 U/L (0-40) 06/07/22 04:54 ALT 11 U/L (0-41) 06/07/22 04:54 Alkaline Phosphatase 61 IU/L (40-130) 06/07/22 04:54 Troponin T Baseline 13 ng/L (0-15) 06/05/22 14:12 Total Protein 6.9 g/dL (6.6-8.7) 06/07/22 04:54 Albumin 4.2 g/dL (3.5-5.2) 06/07/22 04:54 Globulin 2.7 g/dL (1.3-4.6) 06/07/22 04:54 Triglycerides 129 mg/dL (0-150) 06/07/22 04:54 Cholesterol 124 mg/dL (0-200) 06/07/22 04:54 LDL Cholesterol, Calc 61 mg/dL (50-129) 06/07/22 04:54 Total VLDL Cholesterol 26 mg/dL (0-30) 06/07/22 04:54 HDL Cholesterol 37 mg/dL (60-100) L 06/07/22 04:54 Cholesterol/HDL Ratio 3.35 mg/dL (1.0-5.00) 06/07/22 04:54 TSH 1.13 uIU/mL (0.27-4.20) 06/06/22 03:03 Urine Color Yellow (Yellow) 06/05/22 19:30 Urine Appearance Hazy (CLEAR) A 06/05/22 19:30 Urine pH 5 (5-7) 06/05/22 19:30 Ur Specific Spencer 1.025 (1.005-1.030) 06/05/22 19:30 Urine Protein Trace (Negative) 06/05/22 19:30 Urine Glucose (UA) Norm (Normal) 06/05/22 19:30 Urine Ketones Negative (Negative) 06/05/22 19:30 Urine Blood 3+ (Negative) H 06/05/22 19:30 Urine Nitrate Negative (Negative) 06/05/22 19:30 Urine Bilirubin 1+ (Negative) H 06/05/22 19:30 Urine Urobilinogen Norm mg/dL (Negative) 06/05/22 19:30 Ur Leukocyte Esterase Negative (Negative) 06/05/22 19:30 Urine RBC 40-50 /hpf (0-2) H 06/05/22 19:30 Urine WBC 0-4 /hpf (0-5) H 06/05/22 19:30 Ur Squamous Epith Cells 5-10 /hpf (0-5) H 06/05/22 19:30 Ur Transition Epith Cell 5-10 /hpf 06/05/22 19:30 Calcium Oxalate Crystal 0-4 /hpf H 06/05/22 19:30 Amorphous Sediment Not Reportable 06/05/22 19:30 Urine Bacteria 1+ /hpf (NONE) H 06/05/22 19:30 Hyaline Casts 0-4 /lpf H 06/05/22 19:30 Urine Mucus 2+ /hpf 06/05/22 19:30 U Random Total Protein 53 mg/dL 06/05/22 19:30 Ur Random Sodium 64 mmol/L 06/05/22 19:30 Urine Creatinine 419 mg/dL (39-259) H 06/05/22 19:30 Influenza Type A Ag Negative (Negative) 06/05/22 14:48 Influenza Type B Ag Negative (Negative) 06/05/22 14:48 SARS-CoV-2 Ag (Rapid) Negative (Negative) 06/05/22 14:27 Vitals Last Vital Signs Temp 97.9 F 06/07/22 11:37 Pulse 71 06/07/22 11:37 Resp 16 06/07/22 11:37 BP 127/81 06/07/22 11:37 Pulse Ox 95 06/07/22 11:37 Discharge Plan Discharge Patient Disposition: Home Condition: Stable Prescriptions: New metoprolol tartrate 25 mg Tablet 25 mg PO BID@0900,2100 Qty: 60 0RF Continued testosterone [AndroGel] 20.25 mg/1.25 gram (1.62 %) gel in metered-dose pump 1 pump topical DAILY@0530 0RF Rx Instructions: apply 1 pump amount over max area of ONE upper arm and shoulder venlafaxine [Effexor XR] 150 mg capsule,extended release 24hr 150 mg PO DAILY Qty: 30 0RF atorvastatin 80 mg tablet 80 mg PO DAILY@0530 0RF metformin 500 mg tablet 500 mg PO BID@30,1999 0RF Hold Instructions: Resume on 05/20/21. ascorbic acid (vitamin C) [Vitamin C] 500 mg Tablet 500 mg PO DAILY Qty: 0 0RF vitamin E 400 unit Capsule 400 unit PO DAILY Qty: 0 0RF cholecalciferol (vitamin D3) [Vitamin D3] 25 mcg (1,000 unit) Tablet 25 mcg PO DAILY Qty: 0 0RF rivaroxaban 20 mg Tablet 20 mg PO DAILY@1999 0RF amitriptyline 50 mg Tablet 50 mg PO BEDTIME 0RF Held lisinopril 20 mg Tablet 40 mg PO DAILY@0530 0RF Hold Instructions: Resume on 05/20/21. Discontinued propranolol 10 mg tablet 10 mg PO BID Qty: 60 0RF Discharge Orders: Discharge Order (Routine); Ordered 06/07/22 Ordered By: Daniel Jain Referrals: Yessy Marks MD [Primary Care Provider] - 2 weeks Discharge Diet: Cardiac Discharge Activity: Resume usual activity and Increase activity as tolerated Patient Instructions: Opioid Safety Activity Restrictions/Additional Instructions: Please maintain hydration with at least 2 to 3 L of fluids daily. He is advised to stop taking propanol and instead has been switched over to metoprolol 25 mg twice daily. He is advised not to take lisinopril for now. He is to check his blood pressures daily at home and maintain a blood pressure diary and follow-up with his primary care provider within next 10 days for further adjustment of antihypertensives as needed. If his blood pressures go higher than 140/90 mmHg he is to restart lisinopril at 10 mg daily. Discharge Attestations Time Spent in Discharge Care*: greater than 30 min Specific Discharge Activities: educating patient, discussing with pcp/other providers, discussing with manager rn case/social workers/dc planners, documenting/other paperwork and evaluating patient/reviewing data Status at Discharge: Cognitive status at discharge: cognitively intact , Behavioral status at discharge: cooperative , Functional status at discharge: independent ambulation , Overall status at discharge: patient is back to baseline Quality Metrics Clinical Quality Measures [ No reported AMI, CVA or VTE this stay] Coding Level of Care Code Acute Chg DC note Diagnoses Acute kidney injury superimposed on CKD N17.9; N18.9 Hypertension I10 Diabetes E11.9 Hyponatremia E87.1 CAD (coronary artery disease) I25.10
== END 2022-06-07 14:02 | disposition home or self-care (01) | DRG 683 ==
LOC: ER 15:16 → MEDSURG 15:48
PROVIDERS: Admitting Provider Internal Medicine; Emergency Provider Emergency Medicine; PCP Family Medicine; Visit Provider Student in an Organized Health Care Education/Training Program
DX: N17.9 Acute kidney failure, unspecified (principal); E87.1 Hypo-osmolality and hyponatremia; Z86.718 Personal history of other venous thrombosis and embolism; E13.22 Other specified diabetes mellitus with diabetic chronic kidney disease; I12.9 Hypertensive chronic kidney disease with stage 1 through stage 4 chronic kidney disease, or unspecified chronic kidney disease; N18.9 Chronic kidney disease, unspecified; Z86.711 Personal history of pulmonary embolism; F17.200 Nicotine dependence, unspecified, uncomplicated; E86.0 Dehydration; Z79.84 Long term (current) use of oral hypoglycemic drugs
CPT/HCPCS: 36415; 36416; 51702; 70450; 76770; 80048; 80053; 80061; 81001; 82575; 82962; 83036; 83540; 83550; 84156; 84300; 84443; 84484; 85025; 87086; 87426; 87804; 93005; 93306; 96360; 99285; J1650; J1815; J7030

== ENCOUNTER → 2022-06-13 14:55 | Outpatient (BNVA) | payer OTHER, SELFPAY | PROVIDERS: PCP Family Medicine; Visit Provider Internal Medicine | DX: I10 Essential (primary) hypertension (principal); E78.5 Hyperlipidemia, unspecified; E13.9 Other specified diabetes mellitus without complications; I26.99 Other pulmonary embolism without acute cor pulmonale; F17.220 Nicotine dependence, chewing tobacco, uncomplicated | CPT/HCPCS: 99214 ==

== ENCOUNTER 2024-03-13 12:45 | Outpatient (CLI) | payer OTHER, SELFPAY ==
--- NOTE | 2024-03-13 12:52 | MR_ITS ---
WS: [id number] MRI CERVICAL SPINE NONCONTRAST HISTORY: CERVICAL STENOSIS OF SPINE COMPARISON: 09/15/2018 Technique: Multiplanar, multisequence noncontrast imaging of the cervical spine. Posterior cervical alignment is normal. Disc spaces are mildly narrowed. Signal within the cervical cord is normal. Visualized posterior fossa is unremarkable. Craniocervical junction, C1 and C2 relationship, odontoid process and soft tissues are normal. C2-C3: Mild osteophytic ridging. Mild RIGHT foraminal narrowing. No high-grade stenosis. C3-C4: Mild central disc protrusion with near contact on the ventral thecal sac. Mild osteophytic rid ging. Moderate-sized RIGHT foraminal disc osteophyte resulting in moderate stenosis. No significant L EFT foraminal stenosis. C4-C5: Mild osteophytic ridging. Central shallow disc protrusion. Mild bilateral foraminal narrowing due to osteophyte disease. RIGHT greater than LEFT. C5-C6: Diffuse annular disc bulging with osteophytic ridging. Effacement of ventral CSF. Mild central with moderate to severe RIGHT foraminal and mild LEFT foraminal stenosis. C6-C7: Mild osteophytic ridging and disc bulging. Asymmetric disc osteophyte disease extends greater to the RIGHT. Mild central with moderate to severe bilateral foraminal stenosis. C7-T1: Normal. Paraspinal soft tissue are normal. IMPRESSION: 1. Mild progression of degenerative spondylosis throughout the cervical spine since 09/15/2018. 2. Multilevel foraminal stenosis and central stenosis due to combination of disc and osteophyte dise ase. 3. C2-3: Mild RIGHT foraminal stenosis. 4. C3-4: Moderate RIGHT foraminal disc osteophyte resulting in moderate stenosis. 5. C4-5: Mild bilateral foraminal stenosis, RIGHT greater than LEFT. 6. C5-6: Mild central with moderate to severe RIGHT and mild LEFT foraminal stenosis. 7. C6-7: Asymmetric disc osteophyte disease extends greater to the RIGHT. Mild central with moderate to severe bilateral foraminal stenosis.
== END 2024-03-13 12:46 | disposition home or self-care (01) ==
LOC: RAD 12:45
PROVIDERS: PCP Family Medicine; Visit Provider Nurse Practitioner Family
DX: M48.02 Spinal stenosis, cervical region (principal); M47.812 Spondylosis without myelopathy or radiculopathy, cervical region
CPT/HCPCS: 72141

== ENCOUNTER 2024-07-03 14:46 | Outpatient (CLI) | payer OTHER, SELFPAY ==
--- NOTE | 2024-07-03 14:54 | XR_ITS ---
WS: [id number] XR cervical spine 3V* [id number] REASON FOR EXAM: cervical pain FINDINGS: Anterior plate and screw fixation with interbody fusion devices C5-C7. The surgical appliances are intact and in proper position. There is minimal anterolisthesis of C5 in relation to C4. There is a rounded amorphous calcification underlying the inferior aspect of the left mandibular body . This could represent a calcified lymph node or possibly a salivary gland stone. XR/XR cervical spine 3V* [id number] IMPRESSION: Postoperative cervical spine without significant abnormality. Soft tissue calcification near the right mandible as above.
== END 2024-07-03 14:47 | disposition home or self-care (01) ==
LOC: RAD 14:49
PROVIDERS: PCP Family Medicine; Visit Provider Nurse Practitioner Family
DX: M79.89 Other specified soft tissue disorders (principal); M43.22 Fusion of spine, cervical region; M54.2 Cervicalgia
CPT/HCPCS: 72040

== ENCOUNTER 2024-07-04 09:49 | Emergency (ER) | payer OTHER, SELFPAY ==
[2024-07-04 09:50] VITALS: BP 158/98; PULSE 72; TEMP 36.8; O2SAT 99; BMI 39.5
--- NOTE | 2024-07-04 09:58 | XRR_ITS ---
PROCEDURE INFORMATION: Exam: XR Chest Exam date and time: 07/04/2024 10:05 AM Age: 54 years old Clinical indication: Shortness of breath TECHNIQUE: Imaging protocol: Radiologic exam of the chest. Views: 1 view. COMPARISON: CT angio chest PE protcl [id number] 05/10/2022 3:24 PM FINDINGS: Lungs: Unremarkable. No consolidation. Pleural spaces: Unremarkable. No pleural effusion. No pneumothorax. Heart/Mediastinum: Unremarkable. No cardiomegaly. Bones/joints: Unremarkable. XR/XR chest 1V portable [id number] IMPRESSION: No acute findings.
[2024-07-04 10:07] VITALS: O2SAT 98
[2024-07-04 10:08] VITALS: BP 158/98; PULSE 73; RESP 18; O2SAT 99
[2024-07-04 10:41] LABS: SARS Covid-2 Antigen positive (Negative)
--- NOTE | 2024-07-04 10:53 | ED_ITS ---
HPI - COVID 2 General: Chief Complaint: COVID symptoms Stated Complaint: Covid Time Seen by Provider: 07/04/24 09:51 History of Present Illness: 54-year-old man with a history of hypert ension and hyperlipidemia who presents to the emergency room with COVID symptoms. He had COVID exposure and now is felt bad for the last couple of days. He has malaise and a cough. Somewhat short of breath. He has a telemedicine appointment with his PCP at the [place] at 1230 today but there was told that if he started feeling worse to come to the emergency room. He says he just has much worse malaise and congestion. He has never had COVID before. No altered mental status. No focal motor deficits. No chest pain. No abdominal pain. No nausea or vomiting. No diarrhea. COVID Results: 2 SARS-CoV-2 Antigen (Rapid) positive (Negative) H 07/04/24 10:1 0 Nasal/Oral Coronavirus 2019 PCR Not detected 03/31/21 11:23 Review of Systems 2 Narrative: Constitutional symptoms: Negative except as documented in HPI. Skin symptoms: Negative except as documented in HPI. Eye symptoms: Negative except as documented in HPI. ENMT symptoms: Negative except as documented in HPI. Respiratory symptoms: Negative except as documented in HPI. Cardiovascular symptoms: Negative except as documented in HPI. Gastrointestinal symptoms: Negative except as documented in HPI. Genitourinary symptoms: Negative except as documented in HPI. Musculoskeletal symptoms: Negative except as documented in HPI. Neurologic symptoms: Negative except as documented in HPI. Psychiatric symptoms: Negative except as documented in HPI. Endocrine symptoms: Negative except as documented in HPI. PFSH ED 2 PFSH: Medical History CAD (coronary artery disease) Cervical spondylosis with myelopathy Cholesterol retinal embolus of right eye Chronic migraine without aura, intractable, with status migrainosus Diabetes Diabetes 1.5, managed as type 2 Hemifacial spasm of right side of face Hyperlipidemia Hypertension Hypertension Pulmonary embolism Surgical History H/O hernia repair Family History Grandfather Stroke CAD (coronary artery disease) Father Cancer Social History Smoking and tobacco/nicotine status: current every day tobacco/nicotine user (chewing ) Alcohol intake: current Alcohol intake frequency: 0-2 Drinks per Day Alcohol type: hard liquor Substance/Drug Use: never Physical Exam 2 Narrative: EXAM NARRATIVE: General: Alert, no acute distress. Skin: Warm, dry. Head: Normocephalic, atraumatic. Neck: Supple, trachea midline. Eye: Extraocular movements are intact. Ears, nose, mouth and throat: mucosa moist. Cardiovascular: Regular, Normal peripheral perfusion. Respiratory: Lungs are clear to auscultation, respirations are non-labored, breath sounds are equal, Symmetrical chest wall expansion. Gastrointestinal: Soft, Nontender, Non distended Musculoskeletal: Normal ROM, no deformity. Neurological: Alert and oriented, No focal neurological deficit observed. Psychiatric: Cooperative, appropriate mood & affect. Course 2 Vital Signs: Vital signs: Vital Signs Temperature 98.3 F 07/04/24 11:36 Pulse Rate 70 07/04/24 11:36 Respiratory Rate 18 07/04/24 11:36 Blood Pressure 129/86 07/04/24 11:36 Pulse Oximetry 100 07/04/24 11:36 Oxygen Delivery Me thod Room Air 07/04/24 10:08 MDM - COVID Medical Decision Making Medical decision making: Differential diagnosis including but not limited to and based on the above HPI, review of systems and physical exam: Patient most definitely has COVID but we are running a COVID swab here. Basic lab work with a CRP are being ordered as well. Along with a chest x-ray to evaluate for pneumonitis etc. Orders placed to evaluate differential diagnosis based on the above differential, HPI and physical exam Chest x-ray: No acute process. No infiltrate. No pneumothorax. This was reviewed and interpreted by myself the ER physician. Lab Review: Laboratory results were reviewed and interpreted by myself the emergency room physician. Patient is COVID-positive. Lab work is unremarkable. No leukocytosis. Mild thrombocytopenia. BUN/creatinine are normal 11 and 1.0. I reviewed the patient's medical record. Reexamination: Patient remained stable. No oxygen requirements. No increased work of breathing. No altered mental status. No focal motor deficits. Assessment and plan: COVID-19 - Discharged home - Discussed findings and plan with patient. Answered any questions. - All laboratory values were reviewed and interpreted personally by myself, the ER physician - All imaging was reviewed and interpreted personally by myself, the ER physician. - Evaluation and treatment of this problem were appropriate in the emergency setting Lab Data 07/04/24 10:52 07/04/24 10:52 Radiology Impressions Chest X-Ray 07/04/24 09:58 IMPRESSION: No acute findings. Laboratory Results WBC 7.95 10^3/uL (3.29-11.43) 07/04/24 10:52 RBC 5.01 10^6/uL (3.85-5.65) 07/04/24 10:52 Hgb 15.30 g/dL (11.27-16.99) 07/04/24 10:52 Hct 46.7 % (37-53) 07/04/24 10:52 MCV 93.2 fl (82-101) 07/04/24 10:52 MCH 30.5 pg (27-33) 07/04/24 10:52 MCHC 32.8 g/dL (30-55) 07/04/24 10:52 RDW 13.0 % (12.1-15.1) 07/04/24 10:52 Plt Count 150 10^3/cmm (157-399) L 07/04/24 10:52 MPV 10.4 fL (7.4-10.4) 07/04/24 10:52 Neut % (Auto) 66.3 % 07/04/24 10:52 Lymph % (Auto) 21.3 % 07/04/24 10:52 [place] % (Auto) 9.2 % 07/04/24 10:52 Eos % (Auto) 2.3 % 07/04/24 10:52 Baso % (Auto) 0.5 % 07/04/24 10:52 Neut # (Auto) 5.28 10^3/uL (1.8-7.7) 07/04/24 10:52 Lymph # (Auto) 1.7 10^3/uL (0.8-4.8) 07/04/24 10:52 [place] # (Auto) 0.7 10^3/uL (0.2-0.9) 07/04/24 10:52 Eos # (Auto) 0.2 10^3/uL (0.0-0.8) 07/04/24 10:52 Baso # (Auto) 0.0 10^3/uL (0.0-0.1) 07/04/24 10:52 Nucleated RBC % (auto) 0 % 07/04/24 10:52 Nucleated RBCs # 0.0 /100WBC 07/04/24 10:52 Sodium 136 mmol/L (136-145) 07/04/24 10:52 Potassium 4.5 mmol/L (3.5-5.1) 07/04/24 10:52 Chloride 103 mmol/L (98-107) 07/04/24 10:52 Carbon Dioxide 24 mmol/L (22-29) 07/04/24 10:52 Anion Gap 13.5 (5-19) 07/04/24 10:52 BUN 11 mg/dL (6-20) 07/04/24 10:52 Creatinine 1.0 mg/dL (0.7-1.2) 07/04/24 10:52 GFR Calculation 77.9 mL/min (90-130) L 07/04/24 10:52 Glucose 90 mg/dL (65-115) 07/04/24 10:52 Calculated Osmolality 281 mOsm/kg (285-295) L 07/04/24 10:52 Calcium 9.2 mg/dL (8.5-10.5) 07/04/24 10:52 Total Bilirubin 0.5 mg/dL (0.15-1.2) 07/04/24 10:52 AST 18 U/L (0-40) 07/04/24 10:52 ALT 27 U/L (0-41) 07/04/24 10:52 Alkaline Phosphatase 79 U/L (40-130) 07/04/24 10:52 C-Reactive Protein 3.0 mg/L (0.0-4.9) 07/04/24 10:52 Total Protein 7.1 g/dL (6.6-8.7) 07/04/24 10:52 Albumin 4.3 g/dL (3.5-5.2) 07/04/24 10:52 Globulin 2.8 g/dL (1.3-4.6) 07/04/24 10:52 SARS-CoV-2 Ag (Rapid) positive (Negative) H 07/04/24 10:10 2 SARS-CoV-2 Antigen (Rapid) positive (Negative) H 07/04/24 10:1 0 Nasal/Oral Coronavirus 2019 PCR Not detected 03/31/21 11:23 All radiology interpretation(s) finalized by discharge Discharge Plan Discharge Patient Disposition: Home Clinical Impression: COVID-19 Condition: Stable Prescriptions: New Paxlovid 300 mg (150 mg x 2)-100 mg tablets,dose pack See Rx Instructions PO .COMPLEX Qty: 30 0RF Rx Instructions: take TWO 150 mg tablets of nirmatrelvir with ONE 100 mg tablet of ritonavir twice daily for 5 days No Action testosterone [AndroGel] 20.25 mg/1.25 gram (1.62 %) gel in metered-dose pump 1 pump topical DAILY@0530 Rx Instructions: apply 1 pump amount over max area of ONE upper arm and shoulder venlafaxine [Effexor XR] 150 mg capsule,extended release 24hr 150 mg PO DAILY Qty: 30 0RF atorvastatin 80 mg tablet 80 mg PO DAILY@30 metformin 500 mg tablet 500 mg PO BID@529,1999 Hold Instructions: Resume on 05/20/21. lisinopril 20 mg Tablet 40 mg PO DAILY@05 Hold Instructions: Resume on 06/21/22. ascorbic acid (vitamin C) [Vitamin C] 500 mg Tablet 500 mg PO DAILY Qty: 0 vitamin E 400 unit Capsule 400 unit PO DAILY Qty: 0 cholecalciferol (vitamin D3) [Vitamin D3] 25 mcg (1,000 unit) Tablet 25 mcg PO DAILY Qty: 0 rivaroxaban 20 mg Tablet 20 mg PO DAILY@1999 metoprolol tartrate 25 mg Tablet 25 mg PO BID@0900,2100 Qty: 60 0RF amitriptyline 50 mg Tablet 50 mg PO BEDTIME Discharge Orders: Discharge ED (Routine); Ordered 07/04/24 Ordered By: Ana Barth Referrals: Yessy Marks MD [Primary Care Provider] - Discharge Diet: Advance as tolerated Discharge Activity: Increase activity as tolerated Patient Instructions: COVID-19 (Coronavirus Disease 2019) (ED), COVID-19 and Chronic Health Conditions (ED), COVID-19: Slow the Coronavirus Spread (ED), How to Recover from COVID-19 at Home (ED) Activity Restrictions/Additional Instructions: Please keep your appointment with your doctor at 1230. Discussed with them whether they want you to fill the Paxlovid that I have called in. Thank you for choosing [facility] for your healthcare needs today. Please realize this is an emergency room and that we are providing you with a medical screening exam and this may not be complete and all inclusive of all the testing and or work up that you may need to determine your ailment or severity of your illness. You have been screened and evaluated and felt safe for discharge. Health conditions do change or evolve sometimes and as such it is important that you follow up with your Primary Doctor to be re checked, 3-5 days is a general good time frame for follow up. You are always welcome to return to the ED for re assessment if your symptoms are worsening or you have new concerns Coding Level of Care Code ED Building Specialist for Leslie Carrillo
[2024-07-04 11:00] LABS: Basophils % 0.5 %; Eosinophils # 0.2 10^3/uL (0.0-0.8); Eosinophils % 2.3 %; Hematocrit 46.7 % (37-53); Lymphocytes # 1.7 10^3/uL (0.8-4.8); Lymphocytes % 21.3 %; Mean Corpuscular HGB Conc 32.8 g/dL (30-55); Mean Corpuscular Hemoglobin 30.5 pg (27-33); Mean Corpuscular Volume 93.2 fl (82-101); Mean Platelet Volume 10.4 fL (7.4-10.4); Monocytes # 0.7 10^3/uL (0.2-0.9); Monocytes % 9.2 %; Neutrophils # 5.28 10^3/uL (1.8-7.7); Neutrophils % 66.3 %; Nucleated Red Blood Cells % 0 %; Platelet Count 150 10^3/cmm (157-399); Red Blood Count 5.01 10^6/uL (3.85-5.65); White Blood Count 7.95 10^3/uL (3.29-11.43)
[2024-07-04 11:16] LABS: Alanine Aminotransferase 27 U/L (0-41); Albumin Level 4.3 g/dL (3.5-5.2); Alkaline Phosphatase 79 U/L (40-130); Anion Gap 13.5 (5-19); Aspartate Amino Transferase 18 U/L (0-40); Blood Urea Nitrogen 11 mg/dL (6-20); Calcium 9.2 mg/dL (8.5-10.5); Carbon Dioxide 24 mmol/L (22-29); Chloride 103 mmol/L (98-107); Creatinine Clr Calc Pharmacy 122.2767; Globulin 2.8 g/dL (1.3-4.6); Glomerular Filtration Rate 77.9 mL/min (90-130); Glucose 90 mg/dL (65-115); Osmolality Calculated 281 mOsm/kg (285-295); Potassium 4.5 mmol/L (3.5-5.1); Sodium 136 mmol/L (136-145); Total Bilirubin 0.5 mg/dL (0.15-1.2); Total Protein 7.1 g/dL (6.6-8.7)
[2024-07-04 11:36] VITALS: BP 129/86; PULSE 70; RESP 18; TEMP 36.8; O2SAT 100
== END 2024-07-04 11:35 | disposition home or self-care (01) ==
PROVIDERS: Emergency Provider Emergency Medicine; PCP Family Medicine
DX: U07.1 COVID-19 (principal); Z79.84 Long term (current) use of oral hypoglycemic drugs; F17.220 Nicotine dependence, chewing tobacco, uncomplicated; I25.10 Atherosclerotic heart disease of native coronary artery without angina pectoris; E11.9 Type 2 diabetes mellitus without complications; E78.5 Hyperlipidemia, unspecified; I10 Essential (primary) hypertension; Z86.711 Personal history of pulmonary embolism
CPT/HCPCS: 36415; 71045; 80053; 85025; 86140; 87426; 99284

== ENCOUNTER 2024-08-23 08:54 | Outpatient (CLI) | payer SELFPAY ==
--- NOTE | 2024-08-23 08:59 | XR_ITS ---
WS: [email or web address] Cervical spine, 3 views, 08/23/2024 Clinical Data: CERVICAL PAIN Comparison: None. Findings: No compression fractures are seen. There is an anterior cervical disc fusion C5-C7 with dis c spacers at C5-C6 and C6/C7. The disc heights are normal. There is no prevertebral soft tissue swell ing. The odontoid is unremarkable. There is a round 1 cm calcification in the soft tissue of the left neck inferior to the mandible which could be a lymph node or salivary gland stone. XR/XR cervical spine 3V* [id number] Impression: No change in anterior cervical disc fusion C5-C7.
== END 2024-08-23 08:55 | disposition home or self-care (01) ==
LOC: RAD 08:55
PROVIDERS: PCP Family Medicine; Visit Provider Nurse Practitioner Family
DX: M54.2 Cervicalgia (principal); M43.22 Fusion of spine, cervical region
CPT/HCPCS: 72040

== ENCOUNTER 2025-02-19 13:49 | Outpatient (CLI) | payer OTHER, SELFPAY ==
--- NOTE | 2025-02-19 14:07 | XR_ITS ---
WS: [email or web address] Exam: XR cervical spine 3V* [id number] Date/Time of Exam: 02/19/2025 2:07 PM Reason For Exam: CERVICAL RADICULOPATHY/SPONDYLOSIS/NECK PAIN Comparison 08/23/2024. Anterior fusion from C5-C7 with plate and screw fixation and intervening disc spacers. The fusion remains in good alignment. No sign of hardware change or complication. Facet DJD at all levels. Normal paraspinal soft tissues. The dens is intact. Again noted is a prominent left submandibular soft tissue calcification. XR/XR cervical spine 3V* [id number] IMPRESSION: 1. Stable appearing anterior fusion from C5-C7. No change or complication.
== END 2025-02-19 13:50 | disposition home or self-care (01) ==
LOC: RAD 14:04
PROVIDERS: PCP Family Medicine; Visit Provider Nurse Practitioner Family
DX: M54.12 Radiculopathy, cervical region (principal); Z98.1 Arthrodesis status; M47.892 Other spondylosis, cervical region; M79.89 Other specified soft tissue disorders
CPT/HCPCS: 72040